=== PATIENT | female | born 1935 | race Hispanic/Latino ===

== ENCOUNTER 2017-09-02 10:34 | Observation (INO) | payer MEDICARE ==
[~2017-09-02] VITALS: Ht 162.6 cm; Wt 130.4 kg
[~2017-09-02 10:34] MED LIST: ACET500C44 PO; AEC81 PO; ALBU2.5V2 IH; AMOX1TAB16 PO; CARAL PO; CHOL200074 PO; DONE10TA43 PO; FLUT1DIS3 IH; GABA-531 PO; LEVO75 GT; PANT40TA PO; POTA20TA12 PO; PRAV20TA PO; PRED10TA3 PO; SOLI10TA PO; TIMO5DRO7 OD; XALA2.5OS OU
[2017-09-02] MEDS ORDERED: ACETAMINOPHEN 120 MG SUPPOSITORY RC ONE (10:39)
[2017-09-02] MEDS ORDERED: ACETAMINOPHEN 650 MG SUPPOSITORY RC ONE (10:39)
[2017-09-02 11:11] LABS: APPEARANCE,URINE Cloudy (CLEAR); BILIRUBIN,URINE Moderate (NEGATIVE); COLOR,URINE Dark Yellow (YELLOW); GLUCOSE, URINE (UA) Negative (NEGATIVE); KETONES,URINE Trace mg/dL (NEGATIVE); LEUKOCYTE ESTERASE ,URINE Moderate (NEGATIVE); NITRATE,URINE Positive (NEGATIVE); OCCULT BLOOD,URINE Negative (NEGATIVE); PROTEIN,URINE POS 2+ (NEGATIVE)
[2017-09-02 11:14] LABS: ABG BASE EXCESS -3.3 mmol/L (-2.0-3.0); ABG HCO3 26.1 mmol/L (21.0-28.0); ABG OXYGEN SATURATION 90.5 % (95.0-99.0); ABG PCO2 66 mmHg (32-45)
[2017-09-02 11:23] LABS: BACTERIA,URINE Moderate /HPF (None Seen); RBC,URINE 0-1 /HPF (0-1); SQUAMOUS EPITHELIAL CELL,UR Few /HPF (0-2)
[2017-09-02] MEDS ORDERED: CEFTRIAXONE SODIUM 1 GM ONE ×2 (11:28→11:37)
[2017-09-02] MEDS ORDERED: SODIUM CHLORIDE 0.9% 50 ML IV ONE (11:28)
[2017-09-02 11:29] LABS: BASOPHILS % (AUTO) 0.3 % (0.0-5.0); EOSINOPHILS % (AUTO) 0.1 % (0.0-8.0); HEMATOCRIT 39.5 % (36-48); LYMPHOCYTES % (AUTO) 7.7 % (21.0-51.0); MEAN CORPUSCULAR HGB CONC 31.3 g/dL (32.0-36.0); MEAN CORPUSCULAR VOLUME 105.4 fL (79-99); MONOCYTES % (AUTO) 7.1 % (3.0-13.0); NEUTROPHILS % (AUTO) 84.8 % (40.0-77.0); NUCLEATED RED BLOOD CELLS 0.3 % (0.0-0.19); PLATELET COUNT (AUTO) 180 K/uL (130-400); RED BLOOD CELL COUNT(AUTO) 3.75 MIL/uL (4.00-5.50); RED CELL DISTRIBUTION WIDTH 20.7 % (11.0-15.5); WHITE BLOOD COUNT (AUTO) 8.6 K/uL (4.8-10.8)
[2017-09-02 11:41] LABS: CREATININE 1.6 mg/dL (0.5-1.5); POTASSIUM 5.1 mmol/L (3.5-5.1)
[2017-09-02 11:45] LABS: ALBUMIN 2.8 g/dL (3.5-5.0); TOTAL PROTEIN, SERUM 6.7 g/dL (6.0-8.3)
[2017-09-02 11:46] LABS: INR 1.13 (0.85-1.15); PARTIAL THROMBOPLASTIN TIME 23.9 SEC (26.3-35.5); PROTHROMBIN TIME 11.8 SEC (9.6-11.6)
[2017-09-02 15:05] VITALS: BP 101/47
[2017-09-02] MEDS ORDERED: SODIUM CHLORIDE 0.9% 500ML 500 ML IV ONE (15:07)
[2017-09-02 16:06] VITALS: BP 112/54
[2017-09-02] MEDS ORDERED: CEFTRIAXONE 1GM/D5W 50ML 50 ML IV SCH (16:30)
[2017-09-02] MEDS ORDERED: ALBUTEROL SULFATE 0.083% 2.5 MG/3 ML INH IH PRN (16:30)
[2017-09-02] MEDS ORDERED: LACTULOSE 20 GM/30 ML UDCUP PO PRN (16:30)
[2017-09-02] MEDS ORDERED: MAG HYDROX/AL HYDROX/SIMETH ES 30 ML SUSP UDCUP PO PRN (16:30)
[2017-09-02] MEDS ORDERED: ONDANSETRON HCL 4 MG/2 ML VIAL IV PRN (16:30)
[2017-09-02] MEDS ORDERED: ACETAMINOPHEN 325 MG TAB PO PRN ×2 (16:30)
[2017-09-02] MEDS ORDERED: POTASSIUM CHLORIDE 10% ELIXIR 20 MEQ/15 ML UDCUP PO PRN (16:45)
[2017-09-02] MEDS ORDERED: POTASSIUM CHLORIDE 20 MEQ ERTAB PO PRN (16:45)
[2017-09-02] MEDS ORDERED: LIDOCAINE HCL-MPF 1% 2ML VIAL IVP PRN (16:45)
[2017-09-02] MEDS ORDERED: POTASSIUM CHLORIDE 20MEQ/100ML 100 ML IV PRN (16:45)
[2017-09-02] MEDS: SODIUM CHLORIDE 0.9% 1000ML 1,000 ML IV SCH (16:45)
[2017-09-02] MEDS ORDERED: CEFTRIAXONE SODIUM 1 GM IVP SCH ×2 (17:15)
[2017-09-02] MEDS: ALBUTEROL SULFATE 0.083% 2.5 MG/3 ML INH IH SCH ×2 (18:37→22:23)
[2017-09-02 19:30] VITALS: BP 88/44
[2017-09-02 23:26] VITALS: BP 97/33
[2017-09-03] MEDS: SODIUM CHLORIDE 0.9% 1000ML 1,000 ML IV SCH ×2 (00:17→20:41)
[2017-09-03] MEDS: ALBUTEROL SULFATE 0.083% 2.5 MG/3 ML INH IH SCH ×6 (01:56→21:48)
[2017-09-03 03:03] VITALS: BP 95/63
[2017-09-03 04:01] LABS: CREATININE 1.5 mg/dL (0.5-1.5); POTASSIUM 4.3 mmol/L (3.5-5.1)
[2017-09-03 04:01] LABS: ABG BASE EXCESS -2.9 mmol/L (-2.0-3.0); ABG HCO3 27.3 mmol/L (21.0-28.0); ABG PCO2 73 mmHg (32-45)
[2017-09-03 07:00] VITALS: BP 95/55
[2017-09-03] MEDS: LEVOTHYROXINE 75 MCG TABLET GT SCH (07:15)
[2017-09-03] MEDS ORDERED: PREDNISONE 20 MG TABLET PO SCH (09:00)
[2017-09-03] MEDS ORDERED: CEFTRIAXONE SODIUM 1 GM IVP SCH (09:00)
[2017-09-03] MEDS ORDERED: AcetaZOLAMIDE 250 MG TAB PO SCH (09:00)
[2017-09-03] MEDS: PANTOPRAZOLE SODIUM 40 MG TABLET.DR PO SCH ×2 (09:00→10:31)
[2017-09-03 09:04] LABS: ABG BASE EXCESS -3.2 mmol/L (-2.0-3.0); ABG HCO3 25.8 mmol/L (21.0-28.0); ABG OXYGEN SATURATION 91.6 % (95.0-99.0); ABG PCO2 63 mmHg (32-45)
[2017-09-03] MEDS: ASPIRIN 81 MG EC TAB PO SCH (10:31)
[2017-09-03] MEDS: POTASSIUM CHLORIDE 20 MEQ ERTAB PO SCH (10:32)
[2017-09-03] MEDS: ENOXAPARIN SODIUM 40 MG/0.4 ML SYRINGE SQ SCH (10:33)
[2017-09-03 11:00] VITALS: BP 109/51
[2017-09-03 16:00] VITALS: BP 122/76
[2017-09-03 19:28] VITALS: BP 103/72
[2017-09-03 23:51] VITALS: BP 111/48
[2017-09-04] MEDS: ALBUTEROL SULFATE 0.083% 2.5 MG/3 ML INH IH SCH ×3 (01:29→09:32)
[2017-09-04 04:12] VITALS: BP 116/49
[2017-09-04] MEDS: LEVOTHYROXINE 75 MCG TABLET GT SCH (06:35)
[2017-09-04 07:00] VITALS: BP 129/60
[2017-09-04] MEDS ORDERED: CEPH500C2 PO (07:06)
[2017-09-04] MEDS ORDERED: PRED10TA3 PO (07:14)
[2017-09-04] MEDS ORDERED: FAMO20TA8 PO (08:02)
[2017-09-04] MEDS ORDERED: ALBU1.252 IH (08:02)
[2017-09-04] MEDS: ASPIRIN 81 MG EC TAB PO SCH (08:16)
[2017-09-04] MEDS: POTASSIUM CHLORIDE 20 MEQ ERTAB PO SCH (08:17)
[2017-09-04] MEDS: PANTOPRAZOLE SODIUM 40 MG TABLET.DR PO SCH ×2 (08:17→08:41)
[2017-09-04] MEDS: ENOXAPARIN SODIUM 40 MG/0.4 ML SYRINGE SQ SCH (08:37)
[2017-09-04] MEDS ORDERED: PREDNISONE 20 MG TABLET PO SCH (09:00)
[2017-09-04] MEDS ORDERED: CEPHALEXIN 500 MG CAPSULE PO SCH (09:00)
[2017-09-04 11:00] VITALS: BP 136/68
[2017-09-04] MEDS ORDERED: ONDANSETRON HCL MDV 20ML 2 MG/ML VIAL IV PRN (12:38)
== END 2017-09-04 13:07 | disposition home health service (06) ==
LOC: EDH 10:34 → EDHIP 13:52 → 2AH 14:13
PROVIDERS: ADMIT Internal Medicine; ATTEND Internal Medicine
DX: G82.20 Paraplegia, unspecified (principal); F32.1 Major depressive disorder, single episode, moderate; R32 Unspecified urinary incontinence; E78.5 Hyperlipidemia, unspecified; J44.9 Chronic obstructive pulmonary disease, unspecified; E03.9 Hypothyroidism, unspecified; Z68.42 Body mass index [BMI] 45.0-49.9, adult; E66.01 Morbid (severe) obesity due to excess calories; G62.9 Polyneuropathy, unspecified; H40.9 Unspecified glaucoma; Z99.81 Dependence on supplemental oxygen; J96.12 Chronic respiratory failure with hypercapnia; D75.1 Secondary polycythemia; F03.90 Unspecified dementia, unspecified severity, without behavioral disturbance, psychotic disturbance, mood disturbance, and anxiety; F41.1 Generalized anxiety disorder; I50.32 Chronic diastolic (congestive) heart failure; I11.0 Hypertensive heart disease with heart failure; N39.0 Urinary tract infection, site not specified; J96.20 Acute and chronic respiratory failure, unspecified whether with hypoxia or hypercapnia; K65.9 Peritonitis, unspecified; J30.9 Allergic rhinitis, unspecified; Z79.82 Long term (current) use of aspirin; Z79.899 Other long term (current) drug therapy; Z82.0 Family history of epilepsy and other diseases of the nervous system; Z82.3 Family history of stroke; Z82.49 Family history of ischemic heart disease and other diseases of the circulatory system; Z82.5 Family history of asthma and other chronic lower respiratory diseases; Z83.3 Family history of diabetes mellitus; Z66 Do not resuscitate
CPT/HCPCS: 36415 ×2; 36600 ×3; 71045; 80048; 80053; 81001; 82803 ×3; 83605 ×2; 83880; 84484; 85025; 85610; 85730; 87040 ×2; 87088; 87186; 87804 ×2; 93005; 94640 ×11; 94660 ×3; 94664; 96372 ×2; 96374; 97161; 99285; A4218; A4344 ×2; G0378 ×47; G8981; G8982; G8983; J0696 ×4; J1650 ×2; J7030 ×2; J7040

== ENCOUNTER → 2019-02-26 | Outpatient (CLI) | payer MEDICARE ==
[~2019-02-26] MED LIST changes: +ALBU1.252 IH; -ALBU2.5V2 IH; -AMOX1TAB16 PO; -CARAL PO; +CEPH500C2 PO; -CHOL200074 PO; +FAMO20TA8 PO; -FLUT1DIS3 IH; -GABA-531 PO; -PANT40TA PO; -TIMO5DRO7 OD; -XALA2.5OS OU
== END | disposition home or self-care (01) ==
LOC: RAH 16:44
PROVIDERS: ATTEND Internal Medicine
DX: J98.11 Atelectasis (principal); R05 Cough
CPT/HCPCS: 71046

== ENCOUNTER 2019-06-05 12:09 | Observation (INO) | payer MEDICARE ==
[~2019-06-05] VITALS: Ht 167.6 cm; Wt 112.3 kg
[2019-06-05 12:44] LABS: BASOPHILS % (AUTO) 0.6 % (0.0-5.0); EOSINOPHILS % (AUTO) 2.9 % (0.0-8.0); HEMATOCRIT 47.4 % (36-48); LYMPHOCYTES % (AUTO) 20.1 % (21.0-51.0); MEAN CORPUSCULAR HGB CONC 31.2 g/dL (32.0-36.0); MEAN CORPUSCULAR VOLUME 96.1 fL (79-99); MONOCYTES % (AUTO) 5.3 % (3.0-13.0); NEUTROPHILS % (AUTO) 70.5 % (40.0-77.0); PLATELET COUNT (AUTO) 149 K/uL (130-400); RED BLOOD CELL COUNT(AUTO) 4.93 MIL/uL (4.00-5.50); RED CELL DISTRIBUTION WIDTH 14.1 % (11.0-15.5); WHITE BLOOD COUNT (AUTO) 7.1 K/uL (4.8-10.8)
[2019-06-05] MEDS ORDERED: ASPIRIN 325 MG TABLET ONE (12:45)
[2019-06-05 13:02] LABS: INR 0.94 (0.85-1.15); PARTIAL THROMBOPLASTIN TIME 27.6 SEC (26.3-35.5); PROTHROMBIN TIME 9.9 SEC (9.6-11.6)
[2019-06-05 13:03] LABS: CREATININE 1.3 mg/dL (0.5-1.5); POTASSIUM 4.3 mmol/L (3.5-5.1)
[2019-06-05 13:07] LABS: ALBUMIN 3.4 g/dL (3.5-5.0); BILIRUBIN,TOTAL 1.1 mg/dL (0.2-1.0); TOTAL PROTEIN, SERUM 6.8 g/dL (6.0-8.3)
[2019-06-05] MEDS ORDERED: IPRATROPIUM/ALBUTEROL SULFATE 3 ML SOLUTION IH ONE (13:14)
[2019-06-05] MEDS ORDERED: SILV50CR31 TP (14:23)
[2019-06-05] MEDS ORDERED: LINA145C PO (14:23)
[2019-06-05] MEDS ORDERED: GABA-529 PO (14:23)
[2019-06-05] MEDS ORDERED: CHOL200026 PO (14:23)
[2019-06-05] MEDS ORDERED: FLUT1DIS3 IH (14:23)
[2019-06-05] MEDS ORDERED: ALBU2.5V2 IH (14:23)
[2019-06-05] MEDS ORDERED: LEVO5TAB13 PO (14:23)
[2019-06-05] MEDS ORDERED: ALBU18HF7 IH (14:23)
[2019-06-05] MEDS ORDERED: NYST15CR TP (14:23)
[2019-06-05] MEDS ORDERED: LATA7.5D OP (14:23)
[2019-06-05] MEDS ORDERED: BIPAP NASAL (14:23)
[2019-06-05] MEDS ORDERED: CLOT15CR4 TP (14:23)
[2019-06-05] MEDS ORDERED: O2 NASAL (14:23)
[2019-06-05] MEDS ORDERED: POTA20TA12 PO (14:23)
[2019-06-05] MEDS ORDERED: TIMO.25OS OD (14:23)
[2019-06-05] MEDS ORDERED: FUROSEMIDE 10 MG/ML 4ML VIAL ONE (14:48)
[2019-06-05] MEDS ORDERED: METHYLPREDNISOLONE SOD SUCC 125MG/2ML VIAL ONE (14:48)
[2019-06-05] MEDS ORDERED: AZITHROMYCIN 250 MG TABLET PO ONE (14:49)
[2019-06-05] MEDS: IPRATROPIUM/ALBUTEROL SULFATE 3 ML SOLUTION IH SCH ×2 (18:06→21:57)
[2019-06-05] MEDS ORDERED: LACTULOSE 20 GM/30 ML UDCUP PO PRN (19:30)
[2019-06-05] MEDS ORDERED: GUAIFENESIN-DM 200/20 MG 10 ML PO PRN (19:30)
[2019-06-05] MEDS ORDERED: MAG HYDROX/AL HYDROX/SIMETH ES 30 ML SUSP UDCUP PO PRN (19:30)
[2019-06-05] MEDS ORDERED: ACETAMINOPHEN 325 MG TAB PO PRN ×2 (19:30)
[2019-06-05] MEDS ORDERED: ONDANSETRON HCL 4 MG/2 ML VIAL IV PRN (19:30)
[2019-06-05 21:00] VITALS: BP 157/89
[2019-06-05] MEDS ORDERED: [UNRECOGNIZED DRUG - OTHER] NASAL SCH (21:00)
--- NOTE | 2019-06-05 21:00 | NUR ---
Admission note: Received to floor via stretcher. AOX3. Positioned in bed comfortably, HOBE. Continuously attached to O2 at 2LPM via NC. VS checked and recorded. Assessment done. ( See CPOE flow chart for full assessment) Plan of care initiated. Oriented to room and used of call light. Policies and procedures explained. Home meds already resumed by primary physician. IV site to RAC #20 gauge - patent and intact ,SL. Kept observed and monitored for any unusualities. No apparent distress noted. Denies feeling of discomfort. Cared for and needs attended. Endorsed accordingly to AM nurse.
[2019-06-05] MEDS ORDERED: IPRATROPIUM/ALBUTEROL SULFATE 3 ML SOLUTION IH SCH (22:00)
[2019-06-05 22:01] LABS: APPEARANCE,URINE Clear (CLEAR); BILIRUBIN,URINE Negative (NEGATIVE); COLOR,URINE Yellow (YELLOW); GLUCOSE, URINE (UA) Negative (NEGATIVE); KETONES,URINE Negative (NEGATIVE); LEUKOCYTE ESTERASE ,URINE Trace (NEGATIVE); NITRATE,URINE Negative (NEGATIVE); OCCULT BLOOD,URINE Negative (NEGATIVE); PROTEIN,URINE Negative (NEGATIVE); UROBILINOGEN,URINE 0.2 mg/dL (0.2-1.0)
[2019-06-05 22:09] LABS: BACTERIA,URINE Few /HPF (None Seen); RBC,URINE None Seen /HPF (0-1); SQUAMOUS EPITHELIAL CELL,UR 0-2 /HPF (0-2)
[2019-06-05 23:38] VITALS: BP 130/75
[2019-06-06] MEDS: IPRATROPIUM/ALBUTEROL SULFATE 3 ML SOLUTION IH SCH ×4 (01:40→13:19)
[2019-06-06 04:00] VITALS: BP 114/69
[2019-06-06 05:20] LABS: HEMATOCRIT 47.4 % (36-48); MEAN CORPUSCULAR HEMOGLOBIN 29.5 pg (27.0-33.0); MEAN CORPUSCULAR HGB CONC 31.2 g/dL (32.0-36.0); MEAN CORPUSCULAR VOLUME 94.4 fL (79-99); PLATELET COUNT (AUTO) 157 K/uL (130-400); RED BLOOD CELL COUNT(AUTO) 5.02 MIL/uL (4.00-5.50); RED CELL DISTRIBUTION WIDTH 14.1 % (11.0-15.5); WHITE BLOOD COUNT (AUTO) 9.5 K/uL (4.8-10.8)
[2019-06-06] MEDS ORDERED: LEVOTHYROXINE 75 MCG TABLET GT SCH (06:30)
[2019-06-06] MEDS ORDERED: METHYLPREDNISOLONE SOD SUCC 125MG/2ML VIAL IVP SCH ×2 (07:15→21:00)
[2019-06-06 07:30] VITALS: BP 122/67
[2019-06-06] MEDS: POTASSIUM CHLORIDE 20 MEQ ERTAB PO SCH ×2 (08:17→08:26)
[2019-06-06] MEDS ORDERED: ENOXAPARIN SODIUM 40 MG/0.4 ML SYRINGE SQ SCH (09:00)
[2019-06-06] MEDS ORDERED: AZITHROMYCIN 500MG+NS 250ML 250 ML IV SCH (09:00)
[2019-06-06] MEDS ORDERED: FUROSEMIDE 10 MG/ML 4ML VIAL IVP SCH (09:00)
[2019-06-06] MEDS ORDERED: TIMOLOL MALEATE 0.25% 5 ML BOTTLE OD SCH (09:00)
[2019-06-06] MEDS ORDERED: AZITHROMYCIN 250 MG TABLET PO SCH (09:00)
[2019-06-06] MEDS ORDERED: FAMOTIDINE 20MG TAB 20 MG TAB PO SCH (09:00)
[2019-06-06] MEDS ORDERED: ASPIRIN 81 MG EC TAB PO SCH (09:00)
[2019-06-06] MEDS ORDERED: SIMVASTATIN 10 MG TABLET PO SCH (09:00)
[2019-06-06 11:00] VITALS: BP 118/62
[2019-06-06] MEDS ORDERED: PRED10TA3 PO (12:02)
[2019-06-06] MEDS ORDERED: AZIT250T PO (12:02)
[2019-06-06] MEDS ORDERED: PREDNISONE 20 MG TABLET PO SCH (12:24)
--- NOTE | 2019-06-06 14:02 | NUR ---
PER ADMISSIONS DATABASE, PT ALREADY REC'D FLU SHOT THIS SEASON. Addendum: 06/06/19 at 1405 by REEBCCA CHAPA RN RN Amended: Links added.
--- NOTE | 2019-06-06 16:00 | NUR ---
Discharge instructions provided in the room with pt and daughter at side. Emphasis on dx COPD exacerbation, S/S to monitor for, when to seek emergency care vs dial 911. Pt has follow up appt set with Dr. Silveira on 06/09/19 at 12:15 pm. Written rx for Azithromycin and Prednisone given to pt. Discussed route, frequency, and duration of treatment, as well as side effects and adverse effects. All questions addressed. PIV removed form right arm with tip intact. Dressed with sterile 2x2 and band aid after hemostasis. PT wheeled to front lobby and assisted into car by [facility] [place] Pt has home o2 in car, place on by family. Pt in stable condition at time of discharge.
== END 2019-06-06 16:15 | disposition home or self-care (01) ==
LOC: EDH 12:09 → EDHIP 14:00 → 4CH 20:27
PROVIDERS: ADMIT Internal Medicine; ATTEND Internal Medicine
DX: J44.1 Chronic obstructive pulmonary disease with (acute) exacerbation (principal); G61.0 Guillain-Barre syndrome; G82.20 Paraplegia, unspecified; E03.9 Hypothyroidism, unspecified; E78.2 Mixed hyperlipidemia; E66.01 Morbid (severe) obesity due to excess calories; H40.9 Unspecified glaucoma; F32.1 Major depressive disorder, single episode, moderate; F41.9 Anxiety disorder, unspecified; I50.9 Heart failure, unspecified; G47.33 Obstructive sleep apnea (adult) (pediatric); F03.91 Unspecified dementia, unspecified severity, with behavioral disturbance; D75.1 Secondary polycythemia; J20.9 Acute bronchitis, unspecified; R53.1 Weakness; G47.36 Sleep related hypoventilation in conditions classified elsewhere; N18.3 Chronic kidney disease, stage 3 (moderate); J96.92 Respiratory failure, unspecified with hypercapnia; J96.91 Respiratory failure, unspecified with hypoxia; Z79.82 Long term (current) use of aspirin; Z68.41 Body mass index [BMI] 40.0-44.9, adult; Z90.49 Acquired absence of other specified parts of digestive tract
CPT/HCPCS: 36415 ×2; 71045; 76770; 80053; 81001; 82550; 83880; 84484 ×2; 85025; 85027; 85610; 85730; 87804 ×2; 93005; 94640 ×7; 94664; 96372; 96374; 99284; A4510; A4600; G0378 ×20; J1650; J1940; J2930 ×2

== ENCOUNTER 2024-05-07 17:59 | Inpatient (IN) | payer MEDICARE ==
[~2024-05-07] VITALS: Ht 160 cm; Wt 117.2 kg
[~2024-05-07 17:59] MED LIST changes: -ACET500C44 PO; -ALBU1.252 IH; +ALBU18HF7 IH; +ALBU2.5V2 IH; +AZIT250T PO; +BIPAP NASAL; -CEPH500C2 PO; +CHOL200026 PO; +CLOT15CR4 TP; -DONE10TA43 PO; -FAMO20TA8 PO; +FLUT1DIS3 IH; +GABA-529 PO; +LATA7.5D OP; +LEVO5TAB13 PO; +LINA145C PO; +NYST15CR39 TP; +O2 NASAL; +POTA-193 PO; -POTA20TA12 PO; +SILV50CR31 TP; -SOLI10TA PO; +TIMO.25OS OD; +rocuRONium bROMide 10MG/1ML 5ML VL IV ONE
[2024-05-07 18:33] LABS: BASOPHILS # (AUTO) 0.05 K/uL (0.00-0.20); BASOPHILS % (AUTO) 0.7 % (0.0-5.0); EOSINOPHILS # (AUTO) 0.02 K/uL (0.00-0.70); EOSINOPHILS % (AUTO) 0.3 % (0.0-8.0); HEMATOCRIT 43.3 % (36-48); IMMATURE GRANULOCYTE ABSOLUTE 0.78 K/uL (0-1); LYMPHOCYTES % (AUTO) 12.9 % (21.0-51.0); MEAN CORPUSCULAR HEMOGLOBIN 27.9 pg (27.0-33.0); MEAN CORPUSCULAR HGB CONC 29.3 g/dL (32.0-36.0); MEAN CORPUSCULAR VOLUME 95.2 fL (79-99); MONOCYTES # (AUTO) 0.5 K/uL (0.1-1.0); MONOCYTES % (AUTO) 6.6 % (3.0-13.0); NEUTROPHILS # (AUTO) 5.3 K/uL (1.8-7.7); NEUTROPHILS % (AUTO) 69.2 % (40.0-77.0); NUCLEATED RED BLOOD CELLS 0.8 % (0.0-0.19); PLATELET COUNT (AUTO) 78 K/uL (130-400); RED BLOOD CELL COUNT(AUTO) 4.55 MIL/uL (4.00-5.50); RED CELL DISTRIBUTION WIDTH 16.4 % (11.0-15.5); WHITE BLOOD COUNT (AUTO) 7.6 K/uL (4.8-10.8)
[2024-05-07 18:37] LABS: ABG BASE EXCESS 0.1 mmol/L (-2.0-3.0); ABG HCO3 30.8 mmol/L (21.0-28.0); ABG OXYGEN SATURATION 95.1 % (94.0-98.0); ABG PCO2 85 mmHg (32-45); ABG PH 7.177 (7.350-7.450); CARBON MONOXIDE 1.8 % (0.5-1.5); DEVICE COMMENT RR RN; HHb 4.8; PO2, ARTERIAL BG 87.2 mmHg (83.0-108.0); VENT MODE, BG NRB (ROOM AIR)
[2024-05-07 18:50] VITALS: RESP 24; O2SAT 100
[2024-05-07 18:52] LABS: CREATININE 2.5 mg/dL (0.5-1.0)
[2024-05-07 18:56] LABS: B-TYPE NATRIURETIC PEPTIDE 776 pg/mL (0-100)
[2024-05-07] MEDS: IpraTROPium/alBUTERol SULFATE 3 ML SOLUTION IH ONE (19:02)
[2024-05-07 19:03] VITALS: PULSE 90; RESP 24
--- NOTE | 2024-05-07 19:17 | HMCIMG ---
CHEST 1VW HISTORY: Dyspnea and shortness of breath COMPARISON: 06/05/2019 FINDINGS: A frontal projection of the chest was obtained. Mild bilateral pulmonary infiltrates are seen may be related to mild pulmonary vascular congestion with possible superimposed pneumonitis. The heart is borderline enlarged. Poor inspiratory effort is seen. No evidence of aortic calcification is seen. IMPRESSION: 1. Mild bilateral pulmonary infiltrates are seen may be related to mild pulmonary vascular congestion with possible superimposed pneumonitis.
[2024-05-07] MEDS: ZOSYN 3.375GM +NS 50ML IVPB ONE (19:18)
[2024-05-07] MEDS: Solu-medROL 125MG VIAL IVP ONE (19:18)
[2024-05-07 19:37] LABS: SARS-CoV-2, RNA, NAAT NEGATIVE SARS CoV-2 (NEGATIVE)
[2024-05-07 19:39] LABS: INFLUENZA TYPE A Negative For Type A (NEGATIVE); INFLUENZA TYPE B Negative For Type B (NEGATIVE)
[2024-05-07] MEDS: CALCIUM GLUC 1GM 1 GM in 0.9%NACL 100ML 100 ML IV ONE (19:58)
[2024-05-07] MEDS: furoSEMIDE 20MG VIAL IV ONE (19:58)
[2024-05-07] MEDS: INSULIN humuLIN R 100 UNIT/ML 3ML IV ONE (19:59)
[2024-05-07] MEDS: DEXTROSE 50%-WATER 25 GM/50 ML VIAL IV ONE (19:59)
[2024-05-07] MEDS: CALCIUM GLUC 1GM/10ML VIAL ONE (20:00)
[2024-05-07] MEDS: DEXTROSE 50%-WATER 50 ML DISP.SYRIN IV ONE (20:00)
[2024-05-07] MEDS: LORazepam 2 MG/ML 1 ML VIAL IVP ONE (20:18)
[2024-05-07 20:24] LABS: APPEARANCE,URINE CLEAR (CLEAR); BILIRUBIN,URINE NEGATIVE (NEGATIVE); COLOR,URINE YELLOW (YELLOW); GLUCOSE, URINE (UA) NEGATIVE (NEGATIVE); KETONES,URINE NEGATIVE (NEGATIVE); LEUKOCYTE ESTERASE ,URINE NEGATIVE Leu/uL (NEGATIVE); NITRATE,URINE NEGATIVE (NEGATIVE); OCCULT BLOOD,URINE SMALL (NEGATIVE); PROTEIN,URINE 30 mg/dL (NEGATIVE); UROBILINOGEN,URINE 0.2 mg/dL (0.2-1.0)
[2024-05-07 20:25] LABS: ADD UA MICROSCOPIC YES
[2024-05-07 20:27] LABS: BACTERIA,URINE RARE /HPF (None Seen); MUCUS,URINE RARE LPF (None Seen); OTHER CASTS, URINE 3 /LPF (None Seen); SQUAMOUS EPITHELIAL CELL,UR RARE /HPF (0-2)
[2024-05-07] MEDS: ALBUTEROL 0.083% 2.5 MG/3 ML INH IH SCH (20:32)
[2024-05-07 20:40] VITALS: PULSE 90; RESP 24
--- NOTE | 2024-05-07 21:05 | ERN ---
General Chief Complaint: Shortness of Breath Stated Complaint: SOB Time Seen by MD: 18:35 Time Seen by Midlevel: 18:35 Source: patient, EMS History of Present Illness Initial Comments Patient is a morbidly obese 88-year-old female with a past medical of hypertension, hyperlipidemia, and COPD who presents via EMS for evaluation of shortness of breath. Patient is normally on home oxygen at 3 L however for the last seven days patient has been progressively getting more short of breath. According to EMS patient was satting 85% on nasal cannula. Patient was placed on 10 L via non-rebreather in route with improvement of O2 saturation to 92%. According to family patient has been more lethargic than usual. Allergies: Coded Allergies: No Known Allergies (Verified Allergy, Unknown, 05/29/14) Home Meds Active Scripts Prednisone (Prednisone) 10 Mg Tablet, 10 MG PO AD, #21 TAB 0 Refills 4 tabs daily x 3 days 2 tabs daiy x 3 days 1 tab daily x 3 days then stop Prov:SALLIE MOTA MD 06/06/19 Azithromycin (Zithromax) 250 Mg Tablet, 500 MG PO Q24H for 5 Days, #5 TAB 0 Refills Prov:SALLIE MOTA MD 06/06/19 Silver Sulfadiazine (Silver Sulfadiazine) 50 Gm Cream..g., 1 APPL TP QIDP PRN for SKIN BREAKDOWN for 90 Days, #60 GM Prov:SALLIE MOTA MD 06/05/19 Clotrimazole/Betamethasone Dip (Lotrisone Cream) 15 Gm Cream..g., 1 APPL TP BID PRN for RASH for 90 Days, #90 GM Prov:SALLIE MOTA MD 06/05/19 Nystatin (Nystatin) 15 Gm Cream.gm., 1 APPL TP TIDP PRN for RASH for 90 Days, #90 APPL Prov:SALLIE MOTA MD 06/05/19 Cholecalciferol (Vitamin D3) (Vitamin D3) 2,000 Unit Tablet, 2000 UNIT PO DAILY for 90 Days, #90 TAB Prov:SALLIE MOTA MD 06/05/19 Albuterol Sulfate (Ventolin Hfa) 18 Gm Hfa.aer.ad, 2 PUFF IH QIDP PRN for SHORTNESS OF BREATH for 90 Days, #90 INHALER Prov:SALLIE MOTA MD 06/05/19 Levocetirizine Dihydrochloride (Levocetirizine Dihydrochloride) 5 Mg Tablet, 2.5 MG PO HS for 90 Days, #90 TAB Prov:SALLIE MOTA MD 06/05/19 Fluticasone/Salmeterol (Advair 250-50 Diskus) 1 Each Blst.w.dev, 1 EACH IH BID for 90 Days, #9 DISK Prov:SALLIE MOTA MD 06/05/19 Timolol Maleate (Timoptic 0.25% Ophth Soln) 20 Drop/Ml Opsol, 1 DROP OD DAILY for 90 Days, #90 DROP Prov:SALLIE MOTA MD 06/05/19 Gabapentin (Gabapentin) 100 Mg Capsule, 200 MG PO HS for 90 Days, #180 CAP Prov:SALLIE MOTA MD 06/05/19 Linaclotide (Linzess) 145 Mcg Capsule, 145 MCG PO DAILYLUNCH PRN for CONSTIPATION for 90 Days, #90 CAP Prov:SALLIE MOTA MD 06/05/19 [O2] No Conflict Check, 2.5 L NASAL, #90 0 Refills Prov:SALLIE MOTA MD 06/05/19 [Bipap] 16,/12 No Conflict Check, 16 CM NASAL HS, #1 0 Refills Prov:SALLIE MOTA MD 06/05/19 Latanoprost/Pf (Latanoprost 0.005% Eye Drop) 7.5 Ml Drops, 1 DROP OP DAILY for 90 Days, #90 DROP Prov:SALLIE MOTA MD 06/05/19 Albuterol Sulfate (Albuterol Sulfate) 2.5 Mg/3 Ml Vial.neb, 2.5 MG IH Q6HPRN PRN for SHORTNESS OF BREATH/WHEEZING for 90 Days, #360 INH Prov:SLALIE MOTA MD 06/05/19 Potassium Chloride (Klor-Con M20) 20 Meq Tab.er.prt, 20 MEQ PO AM for 90 Days, #90 TAB Prov:SALLIE MOTA MD 06/05/19 Reported Medications Pravastatin Sodium (Pravachol) 20 Mg Tablet, 20 MG PO AM, TAB 05/29/14 Aspirin (ASPIRIN 81 MG ECTAB) 81 Mg Ectab, 81 MG PO DAILY, TAB.EC 05/29/14 Levothyroxine Sodium (Levothroid/Synthroid) 75 Mcg Tab, 75 MCG GT ACBKFST, TAB 05/29/14 Past Medical History Past Medical History: Asthma, COPD Past Surgical History: Other ROS Dictation CONSTITUTIONAL: Negative except for HPI HEAD/FACE: Negative except for HPI EENT: Negative except for HPI RESPIRATORY: Negative except for HPI GASTROINTESTINAL/ABDOMINAL: Negative except for HPI GENITOURINARY: Negative except for HPI MUSCULOSKELETAL: Negative except for HPI INTEGUMENTARY: Negative except for HPI NEUROLOGICAL/PSYCH: Negative except for HPI HEMATOLOGIC/LYMPHATIC: Negative except for HPI All Systems Negative, Except as noted above. 13 point review of systems assessed and all negative except for above. Physical Exam Physical Exam Dictation Vital Signs reviewed General Appearance: Alert, oriented x 3, mild respiratory distress, morbidly obese Head and Face: non-traumatic. Eyes: PERRL, pink conjunctivas, eyelid no trauma, anterior chamber with arcus senilis. Ears: Pinnas intact and no signs of trauma or erythema ear canals clear and no discharge TM no erythema Nose: No discharge, no bleeding. Oropharynx: Mouth normal, tongue pink, pharynx clear,no erythema, tonsils no exudates, no abscesses noted, mucous membrane moist Neck: Supple, non-tender, no thyromegaly, no masses, no JVD, no bruits Breast:Deferred Chest:No tenderness, no crepitus, no paradoxical movement, no retractions Lungs: Wheezing to bilateral lung hightower, tachypneic Heart: Regular rate, regular rhythm, no murmur, no gallops Vascular: no peripheral edema, Abdomen: Soft, positive bowel sounds, nondistended, no guarding, nontender, no rebound, no masses no hepatomegaly, no splenomegaly, no Martinez's sign, no hernias. Rectal: Deferred Genital: Deferred Neurological: Normal speech, motor function intact, sensory function intact Musculoskeletal: Neck nontender, full range of motion, back nontender, full range of motion, Extremities: nontender, full range of motion Skin: Color pink, dry, no turgor, no rash, no lacerations, no abrasions, no contusions. Lymphatic: Deferred Results Laboratory and Microbiology Lab and Micro Result Laboratory Tests Test 05/07/24 18:27 05/07/24 18:35 05/07/24 19:00 05/07/24 20:16 White Blood Count 7.6 K/uL (4.8-10.8) Red Blood Count 4.55 MIL/uL (4.00-5.50) Hemoglobin 12.7 g/dL (12.0-16.0) Hematocrit 43.3 % (36-48) Mean Corpuscular Volume 95.2 fL (79-99) Mean Corpuscular Hemoglobin 27.9 pg (27.0-33.0) Mean Corpuscular Hemoglobin Concent 29.3 g/dL (32.0-36.0) L Red Cell Distribution Width 16.4 % (11.0-15.5) H Platelet Count 78 K/uL (130-400) L Mean Platelet Volume 11.1 fL (7.5-10.5) H Immature Granulocyte % (Auto) 10.3 % (0-1) H Neutrophils (%) (Auto) 69.2 % (40.0-77.0) Lymphocytes (%) (Auto) 12.9 % (21.0-51.0) L Monocytes (%) (Auto) 6.6 % (3.0-13.0) Eosinophils (%) (Auto) 0.3 % (0.0-8.0) Basophils (%) (Auto) 0.7 % (0.0-5.0) Neutrophils # (Auto) 5.3 K/uL (1.8-7.7) Lymphocytes # (Auto) 1.0 K/uL (1.0-4.8) Monocytes # (Auto) 0.5 K/uL (0.1-1.0) Eosinophils # (Auto) 0.02 K/uL (0.00-0.70) Basophils # (Auto) 0.05 K/uL (0.00-0.20) Absolute Immature Granulocyte (auto 0.78 K/uL (0-1) Nucleated Red Blood Cells 0.8 % (0.0-0.19) H Red Blood Cell Morphology ANISO 1+ Sodium Level 138 mmol/L (136-145) Potassium Level 6.0 mmol/L (3.5-5.1) *H Chloride Level 102 mmol/L (101-111) Carbon Dioxide Level 37 mmol/L (21-32) H Blood Urea Nitrogen 40 mg/dL (7-18) H Creatinine 2.5 mg/dL (0.5-1.0) H Glomerular Filtration Rate Calc 18 mL/min (>90) Random Glucose 150 mg/dL (70-105) H Lactic Acid Level 1.9 mmol/L (0.8-2.5) Total Calcium 8.8 mg/dL (8.5-10.1) Troponin I High Sensitivity 23 ng/L (4-50) B-Type Natriuretic Peptide 776 pg/mL (0-100) H Procalcitonin 0.60 ng/mL (0.05-0.5) H Blood Gas Specimen Type Arterial Arterial Blood pH 7.177 (7.350-7.450) Arterial Blood Partial Pressure CO2 85 mmHg (32-45) *H Arterial Blood Partial Pressure O2 87.2 mmHg (83.0-108.0) Arterial Blood HCO3 30.8 mmol/L (21.0-28.0) H Arterial Blood Oxygen Saturation 95.1 % (94.0-98.0) Arterial Blood Base Excess 0.1 mmol/L (-2.0-3.0) Hemoglobin (Blood Gas) 13.3 g/dL (12.0-16.0) Sodium (Blood Gas) 137 MMOL/L (136-145) Bedside Potassium (Blood Gas) 5.5 MMOL/L (3.4-4.5) H Bedside Chloride (Blood Gas) 100 MMOL/L (98-107) Bedside Glucose (Blood Gas) 153 MG/DL (65-95) H Bedside Ionized Calcium (Blood Gas) 1.16 MMOL/L (1.15-1.33) Bedside Lactic Acid (Blood Gas) 0.86 MMOL/L (0.36-0.75) H Blood Gas Temperature 37.0 CELSIUS (35.5-37.0) Blood Gas Flow-by 12.00 L/min (0.00-15.00) Blood Gas Vent Mode NRB (ROOM AIR) FiO2 100.0 % Blood Gas Specimen Comment RR RN Influenza Type A Antigen Negative For Type A Influenza Type B Antigen Negative For Type B SARS-CoV-2, RNA, NAAT NEGATIVE SARS CoV-2 Urine Color YELLOW (YELLOW) Urine Appearance CLEAR (CLEAR) Urine pH 5.0 (5.0-8.0) Urine Specific [place] 1.015 (1.001-1.031) Urine Protein 30 mg/dL (NEGATIVE) H Urine Glucose (UA) NEGATIVE mg/dL (NEGATIVE) Urine Ketones NEGATIVE mg/dL (NEGATIVE) Urine Occult Blood SMALL (NEGATIVE) H Urine Nitrate NEGATIVE (NEGATIVE) Urine Bilirubin NEGATIVE mg/dL (NEGATIVE) Urine Urobilinogen 0.2 mg/dL (0.2-1.0) Urine Leukocyte Esterase NEGATIVE Alea/uL Urine RBC 2-5 /HPF (0-1) H Urine WBC 2-5 /HPF (0-1) H Urine Squamous Epithelial Cells RARE /HPF (0-2) Urine Bacteria RARE /HPF (None Seen) Urine Other Casts 3 /LPF (None Seen) Labs Reviewed?: Yes MDM MDM: Differential diagnosis: Pneumonia, pulmonary edema, hypercapnia, pneumothorax Rationale: Tests considered and ordered secondary to shared decision making include: Previous outside records reviewed: Old ER visits. Risk of complication and/or morbidity or mortality of patient management: None Medications-Per medication reconciliation Need for hospitalization: Patient does meet criteria for hospitalization. Need for emergency major/minor surgery: No There are no social concerns with this patient. Prescription drug management Prescriptions will include symptomatic care Patient's prior external medical records from other ER visits were reviewed by me as indicated. Prior testing and results from previous visits were reviewed. Prior tests were taken into account with medical decision making and resource utilization, independent historian/historians were used to obtain complete medical history. I independently interpreted the test that were performed, results were reviewed by me and considered findings on radiology if ordered. Medical management and examination interpretation discussions were had by me with other qualified healthcare professionals as indicated for the patient's care. ED Course Orders Procedure Category Date Status Time O2 Nc Keep Sats CPOE 05/07/24 Transmitted Greater 92% 18:08 Notify Md: Spo2 < 88% CPOE 05/07/24 Transmitted 18:08 Cbc With Differential LAB 05/07/24 Complete 18:08 B-Type Natriuretic LAB 05/07/24 Complete Peptide 18:08 Chest 1vw RAD 05/07/24 Resulted 18:08 12 Lead Ekg Tracing- EKG 05/07/24 Logged Technical 18:08 Basic Metabolic Panel LAB 05/07/24 Complete 18:08 Arterial Blood Gas RT 05/07/24 Transmitted 18:09 Covid Rna Naat LAB 05/07/24 Complete 18:35 Influenza Type A & B, LAB 05/07/24 Complete Rapid 18:35 Troponin I High LAB 05/07/24 Complete Sensitivity 18:35 Arterial Blood Gas LAB 05/07/24 Complete Arterial + 18:35 Lactic Acid LAB 05/07/24 Complete 18:44 Procalcitonin LAB 05/07/24 Complete 18:44 Urinalysis Profile LAB 05/07/24 Complete 18:44 Methylprednisolone PHA 05/07/24 Complete Succ 125mg (Solu-Medr 19:00 Ipratropium/Albuterol PHA 05/07/24 Complete Neb (Duoneb) 19:00 Zosyn 3.375gm+Ns 50ml PHA 05/07/24 Complete (Zosyn 3.375gm+Ns 19:00 Calcium Gluc 1gm PHA 05/07/24 Complete (Calcium Gluc 1gm 19:30 Dextrose 50%-Water PHA 05/07/24 Complete (Dextrose 50%-Water) 19:30 Insulin Regular, PHA 05/07/24 Complete Human 3ml (Humulin R 19:30 Albuterol 0.083% PHA 05/07/24 In Process 2.5mg/3ml (Proventil 19:30 Furosemide 20mg Vial PHA 05/07/24 Complete (Lasix 20mg Vial) 20:00 Calcium Gluc 1gm PHA 05/07/24 Complete (Calcium Gluc 1gm 19:45 Dextrose 50%-Water PHA 05/07/24 Complete (D50w) 19:46 Lorazepam 2 Mg PHA 05/07/24 Complete (Ativan) 20:30 Nurse Driven Marley JARRED 05/07/24 In Process Removal Pro 20:25 Vital Signs(Adult CPOE 05/07/24 Transmitted Hospitalist) 22:36 Oxygen By Nc/Pulse Ox CPOE 05/07/24 Transmitted 22:36 Daily Weights CPOE 05/07/24 Transmitted 22:36 I&O Q Shift CPOE 05/07/24 Transmitted 22:36 Fever: Blood Cx X 2 CPOE 05/07/24 Transmitted 22:36 Ipratropium/Albuterol PHA 05/08/24 In Process Neb (Duoneb) 02:00 Pulse Ox(Continuous) RT 05/07/24 Transmitted 22:36 Nurse To Enter Home CPOE 05/07/24 Transmitted Medication 22:36 Admit Orders ADM 05/07/24 Transmitted 22:36 Condition: CPOE 05/07/24 Transmitted 22:36 Telemetry Monitoring CPOE 05/07/24 Transmitted 22:36 Activity: Bed Rest CPOE 05/07/24 Transmitted 22:36 Nothing By Mouth DIET 05/08/24 Transmitted Breakfast Apply Scds CPOE 05/07/24 Transmitted 22:36 Zosyn 3.375gm+Ns 50ml PHA 05/08/24 In Process (Zosyn 3.375gm+Ns 05:00 Critcal Care Consult CONPHYSVC 05/07/24 Transmitted 22:36 Nephrology Consult CONPHYSVC 05/07/24 Transmitted 22:36 Cbc With Differential LAB 05/08/24 Verified 04:00 Comprehensive LAB 05/08/24 Verified Metabolic Panel 04:00 Magnesium LAB 05/08/24 Verified 04:00 B-Type Natriuretic LAB 05/08/24 Verified Peptide 04:00 Hemoglobin A1c LAB 05/08/24 Verified 04:00 Daily Weights CPOE 05/07/24 Transmitted 22:59 Strict I&O CPOE 05/07/24 Transmitted 22:59 Us Renal Sonogram US 05/07/24 Logged 22:59 Echo 2-D Complete ECHO 05/07/24 Logged 22:59 Case Management CM 05/07/24 Transmitted Evaluation 22:59 Troponin I High LAB 05/08/24 Verified Sensitivity 04:00 Current Medications Medications (Trade) Dose Ordered Sig/Jessenia Route PRN Reason Start Time Stop Time Status Last Admin Dose Admin Albuterol (DUOneb) 1 UDVIAL ONCE ONCE IH 05/07/24 19:00 05/07/24 19:01 DC 05/07/24 19:02 Albuterol (DUOneb) 1 udvial [id number] 05/08/24 02:00 06/07/24 01:59 Albuterol Sulfate (Proventil 0.083% 2.5mg/3ml) 10 mg ONCE IH 05/07/24 19:30 06/06/24 19:29 05/07/24 20:32 Calcium Gluconate (Calcium Gluc 1gm Vial) 1 gm STK-MED ONCE .ROUTE 05/07/24 19:45 05/07/24 19:45 DC Calcium Gluconate 1 gm/Sodium Chloride 110 ml @ 110 mls/hr ONCE ONCE IV 12/4/24 19:30 05/07/24 20:29 DC 05/07/24 19:58 Dextrose (D50w) 50 ml STK-MED ONCE IV 05/07/24 19:46 05/07/24 19:46 DC Dextrose (Dextrose 50%-Water) 25 gm ONCE ONCE IV 05/07/24 19:30 05/07/24 19:31 DC 05/07/24 19:59 Furosemide (LASix 20MG VIAL) 20 mg ONCE ONCE IV 05/07/24 20:00 05/07/24 20:06 DC 05/07/24 19:58 Insulin Human Regular (humuLIN R 100 UNIT/ML 3ML) 5 unit ONCE ONCE IV 05/07/24 19:30 05/07/24 19:31 DC 05/07/24 19:59 Lorazepam (AtiVAN) 1 mg ONCE ONCE IVP 05/07/24 20:30 05/07/24 20:31 DC 05/07/24 20:18 Methylprednisolone Sodium Succinate (Solu-medROL 125MG) 120 mg ONCE ONCE IVP 05/07/24 19:00 05/07/24 19:01 DC 05/07/24 19:18 Piperacillin Sod/ Tazobactam Sod 50 ml @ 12.5 mls/hr Q12H IV 05/08/24 05:00 05/18/24 04:59 Piperacillin Sod/ Tazobactam Sod (Zosyn 3.375gm+NS 50ml) 3.375 gm ONCE ONCE IVPB 05/07/24 19:00 05/07/24 19:01 DC 05/07/24 19:18 Vital Signs Date Time Temp Pulse Resp B/P (MAP) Pulse Ox O2 Delivery O2 Flow Rate FiO2 05/07/24 22:19 99 18 132/65 95 Bi-PAP+ 40 05/07/24 20:40 90 24 05/07/24 20:28 98.8 93 18 124/54 94 Bi-PAP+ 40 05/07/24 19:03 90 24 05/07/24 18:50 24 40 05/07/24 18:48 99.0 91 24 124/51 99 Non-Rebreather+ 10 99 05/07/24 18:02 98.4 92 20 112/58 92 Nonrebreathing Mask 10.0 [place] [id number] [address] IMAGING REPORT Signed PATIENT: TEMITOPE ROBBINS MR#: [id number] : 1935 SEX: F AGE: 88 LOCATION: [facility] ORDER 08 STATUS: REG ER REPORT#: [id number] SERVICE 07 REASON: Dyspnea/SOB ORDERING PHYSICIAN: EMILY COREAS MD PROCEDURE: CXR1VW - CHEST 1VW CHEST 1VW HISTORY: Dyspnea and shortness of breath COMPARISON: 06/05/2019 FINDINGS: A frontal projection of the chest was obtained. Mild bilateral pulmonary infiltrates are seen may be related to mild pulmonary vascular congestion with possible superimposed pneumonitis. The heart is borderline enlarged. Poor inspiratory effort is seen. No evidence of aortic calcification is seen. IMPRESSION: 1. Mild bilateral pulmonary infiltrates are seen may be related to mild pulmonary vascular congestion with possible superimposed pneumonitis. DICTATED BY: RAKEL WELSH MD DATE: 05/07/241913 ELECTRONICALLY SIGNED BY: RAKEL WELSH MD DATE: 05/07/241916 DX & DISP Disposition: Inpatient Decision to Admit Date: May 07, 2024 Departure Impression: Primary Impression: Hypercapnia Additional Impressions: COPD exacerbation, Acute respiratory failure, Pneumonia, Hyperkalemia, Acute kidney injury Condition: Stable Referrals: SELF,REFERRAL (PCP) I have reviewed the case, and I agree with, Diagnosis and Plan I performed the substantive portion of the visit. I have reviewed and personally made and approve the management plan that is documented in the note by myself or the [facility]. I acknowledge for responsibility for the patient's management plan. CECY SORIANO May 07, 2024 21:05
--- NOTE | 2024-05-07 22:36 | HP ---
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 Patient isn't able to provide information and details reading medical history and no family member present during my evaluation.Details and information for medical history was taken and gathered from [facility] ,midlevel,and primary nurse. Patient is obtunded on BiPAP recently received with Ativan. Reportedly patient has been short of breath for the past 1 week and progressively got worse today.Patient was using 4L/NC at home and patient has been in the 70's saturation and patient was very restless as per primary nurse report.Upon arrival to ER patient was placed on Bipap and was given Lorazepam 1 mg IV. Seen and examined patient in the ED on Bipap, respirations even and n onlabored,appears calm and comfortable.Patient does not open eyes responsive to pain stimuli ,recently received Ativan.Recent V/S T98.8,HR90,RR24,BP 124/54 Sat 94% Bipap 40% FIO2. Labs WBC 7.6, hemoglobin 12.7, hematocrit 43.3, platelet count 78. Sodium 138, potassium 6.0, carbon dioxide 37, BUN 40, creatinine 2.5, GFR 18 glucose 150, lactic acid 1.9, BNP 7 seven six, procalcitonin 0.60 troponin 23. Influenza a and B negative SARs COVID negative chest x-ray result revealed mild bilateral pulmonary infiltrates are seen may be related to mild pulmonary vascular congestion with possible superimposed pneumonitis. While in the ER patient received Solu-Medrol 120 mg IV, DuoNeb treatment Zosyn IV, calcium gluconate, D50 25 g IV, insulin 5 units IV and albuterol sulfate 10 mg inhalation, lorazepam 1 mg IV and Lasix 20 mg IV. We will admit patient for further medical management. Addendum: As per ER family signed AMA and left with patient REVIEW OF SYSTEMS CONSTITUTIONAL: Denies fevers, chills, or night sweats. No unintentional weight loss reported. NEUROLOGICAL: Denies headache, amaurosis fugax, motor weakness, sensory deficit, vertigo/spinning sensation, gait abnormalities, or tremors. ENT: No hearing loss, otalgia, otorrhea, rhinitis, rhinorrhea, hoarseness, or sore throat. CARDIOVASCULAR: Denies any exertional angina, dyspnea on exertion, orthopnea, paroxysmal nocturnal dyspnea, palpitations, life-threatening arrhythmias, claudication. PULMONARY: Denies any shortness of breath, cough, phlegm/sputum, hemoptysis, pleuritic chest pain. SLEEP: Denies morning headaches, daytime somnolence or napping. Denies difficulty falling asleep, staying asleep, waking from sleep. Denies knowledge of snoring. GASTROINTESTINAL: Denies any type of dysphagia to either liquids or solids. Denies nausea, vomiting, pyrosis, early satiety, abdominal pain, diarrhea, constipation, or changes in stool consistency or caliber. Denies coffee-ground emesis, hematemesis, hematochezia, or melanotic stools. GENITOURINARY: Denies frequency, urgency, nocturia, hematuria or incontinence (Storage/Irritative symptoms.) Low urinary stream, straining to void, urinary intermittency or hesitancy, splitting of the voiding stream, terminal dribbling. ENDOCRINOLOGIC: Denies polyuria, polydipsia, polyphagia or heat/cold intoleran cierra. HEMATOLOGIC: Denies thrombophilia/previous clots, or coagulopathy/bleeding disorders. ONCOLOGIC: Denies personal history of malignancy. DERMATOLOGIC: Denies rashes or pruritus. PSYCHIATRIC: Denies any suicidal or homicidal ideation. Denies hallucinations. 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 ] FAMILY HISTORY: [ Dementia, asthma, cancer, heart failure, Alzheimer's disease and stroke ] Coded Allergies: No Known Allergies (Verified Allergy, Unknown, 05/29/14) PHYSICAL EXAM GENERAL APPEARANCE: The patient is awake, alert, and oriented, in no acute cardiopulmonary distress. NEUROLOGICAL: Cranial nerves II-XII grossly intact. Motor is 5/5 in bilateral upper and lower extremities proximal to distal. No sensory deficits. HEENT: Face is symmetric. Pupils are equal and reactive. Extraocular movements are intact. NECK: Supple. No JVD. No thyromegaly. No submental, submandibular, pre- /postauricular, occipital or supraclavicular lymphadenopathy. CHEST: Normal chest expansion. No Telemetry. LUNGS: Absence of any rales, rhonchi or any wheezing. CARDIOVASCULAR: Regular. S1 and S2 normal. No appreciable rubs, murmurs or gallops. ABDOMEN: Soft, nontender, and nondistended. There is no rebound, voluntary guarding, or rigidity. : Deferred. No Marley. EXTREMITIES: Non-edematous and not cyanotic. No clubbing. Good capillary refill. SKIN: No skin breakdown. Vital Sign (Last 24 Hours) 05/07/24 05/07/24 05/07/24 18:48 20:28 20:40 Temp 98.8 Pulse 90 Resp 24 B/P (MAP) 124/54 Pulse Ox 94 O2 Delivery Bi-PAP+ O2 Flow Rate 10 FiO2 40 LABS: Laboratory: Test 05/07/24 20:16 05/07/24 19:00 05/07/24 18:35 05/07/24 18:27 Range/Units Urine Color YELLOW YELLOW Urine Appearance CLEAR CLEAR Urine pH 5.0 5.0-8.0 Urine Specific [place] 1.015 1.001-1.031 Urine Protein 30 H NEGATIVE mg/dL Urine Glucose (UA) NEGATIVE NEGATIVE mg/dL Urine Ketones NEGATIVE NEGATIVE mg/dL Urine Occult Blood SMALL H NEGATIVE Urine Nitrate NEGATIVE NEGATIVE Urine Bilirubin NEGATIVE NEGATIVE mg/dL Urine Urobilinogen 0.2 0.2-1.0 mg/dL Urine Leukocyte Esterase NEGATIVE NEGATIVE Alea/uL Urine RBC 2-5 H 0-1 /HPF Urine WBC 2-5 H 0-1 /HPF Urine Squamous Epithelial Cells RARE 0-2 /HPF Urine Bacteria RARE None Seen /HPF Urine Other Casts 3 None Seen /LPF Influenza Type A Antigen Negative For Type A NEGATIVE Influenza Type B Antigen Negative For Type B NEGATIVE SARS-CoV-2, RNA, NAAT NEGATIVE SARS CoV-2 NEGATIVE Blood Gas Specimen Type Arterial Arterial Blood pH 7.177 *L 7.350-7.450 Arterial Blood Partial Pressure CO2 85 *H 32-45 mmHg Arterial Blood Partial Pressure O2 87.2 83.0-108.0 mmHg Arterial Blood HCO3 30.8 H 21.0-28.0 mmol/L Arterial Blood Oxygen Saturation 95.1 94.0-98.0 % Arterial Blood Base Excess 0.1 -2.0-3.0 mmol/L Hemoglobin (Blood Gas) 13.3 12.0-16.0 g/dL Sodium (Blood Gas) 137 136-145 MMOL/L Bedside Potassium (Blood Gas) 5.5 H 3.4-4.5 MMOL/L Bedside Chloride (Blood Gas) 100 98-107 MMOL/L Bedside Glucose (Blood Gas) 153 H 65-95 MG/DL Bedside Ionized Calcium (Blood Gas) 1.16 1.15-1.33 MMOL/L Bedside Lactic Acid (Blood Gas) 0.86 H 0.36-0.75 MMOL/L Blood Gas Temperature 37.0 35.5-37.0 CELSIUS Blood Gas Flow-by 12.00 0.00-15.00 L/min Blood Gas Vent Mode NRB ROOM AIR FiO2 100.0 % Blood Gas Specimen Comment RR RN White Blood Count 7.6 4.8-10.8 K/uL Red Blood Count 4.55 4.00-5.50 MIL/uL Hemoglobin 12.7 12.0-16.0 g/dL Hematocrit 43.3 36-48 % Mean Corpuscular Volume 95.2 79-99 fL Mean Corpuscular Hemoglobin 27.9 27.0-33.0 pg Mean Corpuscular Hemoglobin Concent 29.3 L 32.0-36.0 g/dL Red Cell Distribution Width 16.4 H 11.0-15.5 % Platelet Count 78 L 130-400 K/uL Mean Platelet Volume 11.1 H 7.5-10.5 fL Immature Granulocyte % (Auto) 10.3 H 0-1 % Neutrophils (%) (Auto) 69.2 40.0-77.0 % Lymphocytes (%) (Auto) 12.9 L 21.0-51.0 % Monocytes (%) (Auto) 6.6 3.0-13.0 % Eosinophils (%) (Auto) 0.3 0.0-8.0 % Basophils (%) (Auto) 0.7 0.0-5.0 % Neutrophils # (Auto) 5.3 1.8-7.7 K/uL Lymphocytes # (Auto) 1.0 1.0-4.8 K/uL Monocytes # (Auto) 0.5 0.1-1.0 K/uL Eosinophils # (Auto) 0.02 0.00-0.70 K/uL Basophils # (Auto) 0.05 0.00-0.20 K/uL Absolute Immature Granulocyte (auto 0.78 0-1 K/uL Nucleated Red Blood Cells 0.8 H 0.0-0.19 % Red Blood Cell Morphology ANISO 1+ Sodium Level 138 136-145 mmol/L Potassium Level 6.0 *H 3.5-5.1 mmol/L Chloride Level 102 101-111 mmol/L Carbon Dioxide Level 37 H 21-32 mmol/L Blood Urea Nitrogen 40 H 7-18 mg/dL Creatinine 2.5 H 0.5-1.0 mg/dL Glomerular Filtration Rate Calc 18 >90 mL/min Random Glucose 150 H 70-105 mg/dL Lactic Acid Level 1.9 0.8-2.5 mmol/L Total Calcium 8.8 8.5-10.1 mg/dL Troponin I High Sensitivity 23 4-50 ng/L B-Type Natriuretic Peptide 776 H 0-100 pg/mL Procalcitonin 0.60 H 0.05-0.5 ng/mL Current Medications Medications (Trade) Dose Ordered Sig/Jessenia Route PRN Reason Start Time Stop Time Status Last Admin Dose Admin Albuterol Sulfate (Proventil 0.083% 2.5mg/3ml) 10 mg ONCE IH 05/07/24 19:30 06/06/24 19:29 05/07/24 20:32 10 MG DIAGNOSTICS / RADIOLOGY: [ ] ASSESSMENT: Acute hypercarbic respiratory failure with hypoventilation syndrome POA Acute renal failure POA Acute on chronic CHF with pulmonary edema POA Hyperkalemia POA Acute thrombocytopenia POA Hyperglycemia POA Hypothyroidism Hyperlipidemia POA Major Depression disorder POA Generalized Anxiety disorder POA Guillain [place] syndrome with paraphlegia Dementia POA Morbidly obese POA PLAN: We will admit patient in ICU We will keep patient nothing by mouth Will continue on Zosyn IV for empiric coverage We will add prn medication for fever,pain,cough ,nausea and vomiting We will reconcile home meds once medlist available Will seek critical care consultation Will seek nephrology consultation Will request case management service Marley catheter insertion Will request daily weight and strict I&O Will obtain renal sonogram and echocardiogram We will request labs in am Further orders to follow depending on above results Case discussed with attending physician and came up with above treatment and plan of care. ADVANCED CARE PLANNING 1. Which of the following were discussed? Hospice Care - No Therapeutic options - Yes Advance Directives - No Other discussions - 2. Discussed with who? Patient 3. Voluntary nature of this service was explained to the patient? Yes 4. Amount of time spent - __25 5. Reviewed by Physician? (if this service was performed by NPP) Yes Patient seen and examined by me. Agree with note by BREASTFEEDING PROGRAM COORDINATOR SEE ADDITIONAL ORDERS PER CHART DISCUSSED WITH NURSING STAFF JARED QUIÑONEZ AUDIT TECH May 07, 2024 22:36
--- NOTE | 2024-05-07 23:40 | NUR ---
BRAUILO SPECIFICATION CONSULTANT MADE AWARE OF CRITICAL CARE CONSULT
[2024-05-08] VITALS (36 sets, daily range): BP systolic 97–135; BP diastolic 37–71; PULSE 44–97; RESP 8–27; TEMP 98.5–98.7; O2SAT 95–100
[2024-05-08] MEDS: kayEXALate 15GM/60ML PO ONE
[2024-05-08 00:09] LABS: ABG BASE EXCESS 0.7 mmol/L (-2.0-3.0); ABG HCO3 31.7 mmol/L (21.0-28.0); ABG OXYGEN SATURATION 92.1 % (94.0-98.0); ABG PCO2 88 mmHg (32-45); ABG PH 7.173 (7.350-7.450); CARBON MONOXIDE 1.8 % (0.5-1.5); DEVICE COMMENT LR ZULEMARN; HHb 7.7; PO2, ARTERIAL BG 68.6 mmHg (83.0-108.0); VENT MODE, BG BIPAP 14 6 (ROOM AIR)
--- NOTE | 2024-05-08 00:09 | CONS ---
[facility] CONSULTATION NOTE Date Patient Seen: May 08, 2024 Time of Visit: 00:09 Supervising Physician: Dr. Adams Reason for Consultation: [facility] Primary Care Physician: Attending team: [facility] hospitalist team. Outpatient Specialists: Inpatient Consults: BIS, critical Care team Nephrology PROBLEM LIST: Acute hypercarbic respiratory failure with hypoventilation syndrome POA Acute renal failure, POA Critically elevated hyperkalemia, POA Acute on chronic CHF with pulmonary edema POA Acute thrombocytopenia POA Hyperglycemia POA Hypothyroidism Hyperlipidemia POA Major depression disorder POA Generalized anxiety disorder POA Guillain [place] syndrome with paraplegia, POA Dementia POA Morbidly obese POA HPI: Ms. Mitchell is an 88-year-old female with past medical history of asthma, chronic obstructive pulmonary disease, CHF, hypertension, hyperlipidemia, hypothyroidism, morbid obesity, dementia, generalized anxiety disorder, obstructive sleep apnea with hypo ventilation syndrome, Guillain-[place] syndrome with paraplegia, major depressive disorder, chronic respiratory failure on 4 L nasal cannula at home and chronic kidney insufficiency who was brought by ambulance to the ED for evaluation of shortness of breaths for the past week and progressive worsening today which prompted the ED visit. The patient is reported to be under hospice care at home but revoked prior to ER arrival. Patient was using 4L/NC at home and patient has been in the 70's saturation. Patient isn't able to provide information and details regarding her medical history. No family member present during my evaluation. RN reports that patient was anxious and was given Ativan1 mg and placed on BiPAP. Labs WBC 7.6, hemoglobin 12.7, hematocrit 43.3, platelet count 78. Sodium 138, potassium 6.0, carbon dioxide 37, BUN 40, creatinine 2.5, GFR 18 glucose 150, lactic acid 1.9, BNP 7 seven six, procalcitonin 0.60 troponin 23. Influenza a and B negative SARs COVID negative chest x-ray result revealed mild bilateral pulmonary infiltrates are seen may be related to mild pulmonary vascular congestion with possible superimposed pneumonitis. Initial ABGs: PH 7.177, pCO2 85, PO2 87.2, bicarbonate 30.8, O2 sats 95.1, base excess 0.1. While in the ER patient received Solu-Medrol 120 mg IV, DuoNeb treatment Zosyn IV, calcium gluconate, D50 25 g IV, insulin 5 units IV and albuterol sulfate 10 mg inhala tion, lorazepam 1 mg IV and Lasix 20 mg IV. We will admit patient for further medical management. Seen and examined patient in the ED room 14 on Bipap, Respirations even and unlabored, appears calm and comfortable. Patient was very drowsy, recently received Ativan. No family member at bedside. BIS team we will continue monitoring patient closely. Addendum: On arrival the Patient's CO2 was 85 on BiPAP. ED provider change BiPAP to AVAPS and the pCO2 increased to 121. Dry place patient back on BiPAP with improvement of CO2 at 99. Assess patient patient was somnolent but opens eyes and follows commands. Breathing was even and unlabored on BiPAP. BIS team we will continue monitoring patient closely. PAST MEDICAL HX: see above PAST SURGICAL HX: noncontributory SOCIAL HISTORY: No tobacco, ETOH, or illicit drug use Coded Allergies: No Known Allergies (Verified Allergy, Unknown, 05/29/14) REVIEW OF SYSTEMS: Unable to obtain ROS from patient due to patient is somnolent. PHYSICAL EXAM: GENERAL: Somnolent, on BiPAP HEENT: EOMI, Sclera non icteric, moist mucosa NECK: Supple, no JVD, trachea midline LUNGS: Diminished breath sounds bilaterally. No wheezes HEART: Regular rate and rhythm. Normal S1 and S2, without murmurs ABD: Abdomen soft, obese, nontender. Bowel sounds present EXT: No clubbing cyanosis or edema NEURO: Alert and oriented to person, follows commands Vital Signs (last 8hr) Date Time Temp Pulse Resp B/P (MAP) Pulse Ox O2 Delivery O2 Flow Rate FiO2 05/07/24 22:19 99 18 132/65 95 Bi-PAP+ 40 05/07/24 20:40 90 24 05/07/24 20:28 98.8 93 18 124/54 94 Bi-PAP+ 40 05/07/24 19:03 90 24 05/07/24 18:50 24 40 05/07/24 18:48 99.0 91 24 124/51 99 Non-Rebreather+ 10 99 05/07/24 18:02 98.4 92 20 112/58 92 Nonrebreathing Mask 10.0 LABS: Hematology Labs: Test 05/07/24 18:27 Range/Units White Blood Count 7.6 4.8-10.8 K/uL Red Blood Count 4.55 4.00-5.50 MIL/uL Hemoglobin 12.7 12.0-16.0 g/dL Hematocrit 43.3 36-48 % Mean Corpuscular Volume 95.2 79-99 fL Mean Corpuscular Hemoglobin 27.9 27.0-33.0 pg Mean Corpuscular Hemoglobin Concent 29.3 L 32.0-36.0 g/dL Red Cell Distribution Width 16.4 H 11.0-15.5 % Platelet Count 78 L 130-400 K/uL Mean Platelet Volume 11.1 H 7.5-10.5 fL Immature Granulocyte % (Auto) 10.3 H 0-1 % Neutrophils (%) (Auto) 69.2 40.0-77.0 % Lymphocytes (%) (Auto) 12.9 L 21.0-51.0 % Monocytes (%) (Auto) 6.6 3.0-13.0 % Eosinophils (%) (Auto) 0.3 0.0-8.0 % Basophils (%) (Auto) 0.7 0.0-5.0 % Neutrophils # (Auto) 5.3 1.8-7.7 K/uL Lymphocytes # (Auto) 1.0 1.0-4.8 K/uL Monocytes # (Auto) 0.5 0.1-1.0 K/uL Eosinophils # (Auto) 0.02 0.00-0.70 K/uL Basophils # (Auto) 0.05 0.00-0.20 K/uL Absolute Immature Granulocyte (auto 0.78 0-1 K/uL Nucleated Red Blood Cells 0.8 H 0.0-0.19 % Red Blood Cell Morphology ANISO 1+ Chemistry Labs: Test 05/07/24 18:27 Range/Units Sodium Level 138 136-145 mmol/L Potassium Level 6.0 *H 3.5-5.1 mmol/L Chloride Level 102 101-111 mmol/L Carbon Dioxide Level 37 H 21-32 mmol/L Blood Urea Nitrogen 40 H 7-18 mg/dL Creatinine 2.5 H 0.5-1.0 mg/dL Glomerular Filtration Rate Calc 18 >90 mL/min Random Glucose 150 H 70-105 mg/dL Lactic Acid Level 1.9 0.8-2.5 mmol/L Total Calcium 8.8 8.5-10.1 mg/dL Troponin I High Sensitivity 23 4-50 ng/L B-Type Natriuretic Peptide 776 H 0-100 pg/mL Procalcitonin 0.60 H 0.05-0.5 ng/mL DIAGNOSTICS / RADIOLOGY RESULTS: [ ] PLAN Admit to ICU with continuous cardiac monitoring. Monitor respiratory status closely. Continue on BiPAP, titrate according to ABGs and to keep oxygen above SpO2 equal to 92%. Albuterol and Atrovent nebulizer treatment scheduled. Continue antibiotic therapy: Zosyn Continue Lasix 40 mg IV daily. Resume home medication levothyroxine. P.r.n. medications for: Pain management, fever, hypertension, nausea, vomiting, constipation. Glucometer checks a.c. and HS with insulin regular sliding scale as needed per protocol. Blood pressure checks every 4 hours and as needed. Reconcile home medications once available. Nephrology consult. Monitor renal and liver function. Monitor electrolytes and treat accordingly. (hyperkalemia medications administered) A.m. labs: CBC, BNP, Mag, phos, TSH, A1c. GI and DVT prophylaxis. NEURO: Minimize central acting medications as possible. Fall Precautions. Well lighted room through the day and minimize interruptions through the night to prevent acute delirium. PULMONARY: Supplemental 02 as needed Titrate Fio2 to keep Spo2 > or = 90% DuoNebs and CPT as needed IS hourly while awake for pulmonary hygiene Out of bed to chair as tolerated VAP Bundle CARDIOVASCULAR: Follow hemodynamics. Titrate vasopressor to keep MAP >65 or systolic blood pressure >95mmHg GI & NUTRITION: Continue nutritional support Aspirations precautions Prokinetic agents and laxatives as needed KIDNEYS & ELECTROLYTES: Strict monitoring of intake and output Daily weights Avoid nephrotoxic agents Monitor electrolytes and replace as needed Goal urine output of 30mL/hr or 0.5mL/kg/hr ENDOCRINE: Maintain blood glucose between 100-180 at all times. Insulin sliding scale for blood glucose management INFECTIOUS DISEASE: Trend temperature. Velazco-culture if febrile. HEMATOLOGY & COAGULATION: Monitor H&H. Keep Hgb > 7 Transfuse 1 unit of PRBC for Hgb < 7 Transfuse 1 pack of platelets of platelets < 20, 000 Watch for any signs and symptoms of bleeding SKIN: Pressure ulcer prevention per facility protocol Rehab: PT/OT Code Status: Full Resuscitation Disposition: [Admit to ICU] Other: Total patient critical care time exceeds 45 minutes excluding all procedures. PILAR RAMSEY COSMETIC MAKER May 08, 2024 00:09
[2024-05-08] MEDS: SODIUM BICARB 50MEQ 50ML VIAL IV ONE ×2 (00:10→04:27)
--- NOTE | 2024-05-08 00:10 | NUR ---
RIA LEDGER CLERK MADE AWARE OF ABG RESULTS
--- NOTE | 2024-05-08 00:18 | NUR ---
DR. BURCIAGA AND CHRISTIE DUQUE AT BEDSIDE AT THIS TIME.
[2024-05-08] MEDS ORDERED: CHOL500062 PO (01:30)
[2024-05-08] MEDS ORDERED: MELA10TA2 PO (01:30)
[2024-05-08] MEDS ORDERED: GABA-529 PO (01:30)
[2024-05-08] MEDS ORDERED: LEVO75CA5 PO (01:30)
[2024-05-08] MEDS ORDERED: BACL10TA PO (01:30)
[2024-05-08] MEDS ORDERED: LORA0.5T83 PO (01:30)
[2024-05-08] MEDS ORDERED: FURO40TA5 PO (01:30)
[2024-05-08] MEDS: IpraTROPium/alBUTERol SULFATE 3 ML SOLUTION IH SCH (02:11)
[2024-05-08 03:03] LABS: ABG HCO3 37.4 mmol/L (21.0-28.0); ABG OXYGEN SATURATION 96.5 % (94.0-98.0); ABG PCO2 121 mmHg (32-45); ABG PH 7.109 (7.350-7.450); CARBON MONOXIDE 1.7 % (0.5-1.5); HHb 3.4; PO2, ARTERIAL BG 95.3 mmHg (83.0-108.0); VENT MODE, BG AVAPS EPAP7 (ROOM AIR)
--- NOTE | 2024-05-08 03:18 | NUR ---
BRAULIO TENORIO MADE AWARE OF ABG RESULTS
--- NOTE | 2024-05-08 03:26 | NUR ---
BIPAP SETTINGS: 21/02 FI02 40% RATE 26
[2024-05-08 03:31] LABS: BASOPHILS # (AUTO) 0.04 K/uL (0.00-0.20); BASOPHILS % (AUTO) 0.6 % (0.0-5.0); HEMATOCRIT 42.6 % (36-48); IMMATURE GRANULOCYTE ABSOLUTE 1.03 K/uL (0-1); LYMPHOCYTES # (AUTO) 0.3 K/uL (1.0-4.8); LYMPHOCYTES % (AUTO) 4.5 % (21.0-51.0); MEAN CORPUSCULAR HEMOGLOBIN 27.5 pg (27.0-33.0); MEAN CORPUSCULAR HGB CONC 28.9 g/dL (32.0-36.0); MEAN CORPUSCULAR VOLUME 95.3 fL (79-99); MONOCYTES # (AUTO) 0.1 K/uL (0.1-1.0); MONOCYTES % (AUTO) 1.3 % (3.0-13.0); NEUTROPHILS # (AUTO) 5.6 K/uL (1.8-7.7); NUCLEATED RED BLOOD CELLS 0.9 % (0.0-0.19); PLATELET COUNT (AUTO) 83 K/uL (130-400); RED BLOOD CELL COUNT(AUTO) 4.47 MIL/uL (4.00-5.50); RED CELL DISTRIBUTION WIDTH 16.1 % (11.0-15.5)
--- NOTE | 2024-05-08 03:35 | NUR ---
BRAULIO VARNISH THINNER AT BEDSIDE AT THIS TIME
[2024-05-08 03:46] LABS: ALBUMIN 2.8 g/dL (3.5-5.0); BILIRUBIN,TOTAL 0.9 mg/dL (0.2-1.0); CREATININE 2.5 mg/dL (0.5-1.0); MAGNESIUM 2.3 mg/dL (1.80-2.40); TOTAL PROTEIN, SERUM 6.9 g/dL (6.0-8.3)
[2024-05-08 03:48] LABS: POTASSIUM 6.4 mmol/L (3.5-5.1)
[2024-05-08] MEDS ORDERED: ALBUTEROL 0.083% 2.5 MG/3 ML INH IH SCH (04:00)
[2024-05-08 04:08] LABS: B-TYPE NATRIURETIC PEPTIDE 1010 pg/mL (0-100)
[2024-05-08] MEDS: CALCIUM GLUC 1GM/10ML VIAL ONE (04:27)
[2024-05-08] MEDS: CALCIUM GLUC 1GM 1 GM in 0.9%NACL 100ML 100 ML IV ONE (04:27)
[2024-05-08] MEDS: DEXTROSE 50%-WATER 50 ML DISP.SYRIN IV ONE ×2 (04:27→10:49)
[2024-05-08 04:28] LABS: ABG BASE EXCESS 2.9 mmol/L (-2.0-3.0); ABG HCO3 34.5 mmol/L (21.0-28.0); ABG OXYGEN SATURATION 93.8 % (94.0-98.0); ABG PCO2 99 mmHg (32-45); ABG PH 7.162 (7.350-7.450); CARBON MONOXIDE 1.7 % (0.5-1.5); DEVICE COMMENT RR RN; HHb 6.1; PO2, ARTERIAL BG 75.2 mmHg (83.0-108.0); VENT MODE, BG BIPAP 20 9 (ROOM AIR)
[2024-05-08] MEDS: INSULIN humuLIN R 100 UNIT/ML 3ML IV ONE ×2 (04:28→10:58)
[2024-05-08] MEDS: kayEXALate 15GM/60ML PO SCH (04:29)
[2024-05-08 05:24] LABS: BAND NEUTROPHILS % (MANUAL) 4 % (0-2); LYMPHOCYTES % (MANUAL) 6 % (22-44); MAN.DIFF COMMENT-IMPRESSION MANUAL DIFFERENTIAL; MONOCYTES % (MANUAL) 7 % (2-9); SEGMENTED NEUTROPHILS % 83 % (40-70); TOTAL CELLS COUNTED 100
[2024-05-08 05:26] LABS: HEMOGLOBIN A1C 6.8 % (4.0-6.0)
[2024-05-08] MEDS: ZOSYN 3.375GM+NS 50ML 50 ML IV SCH (05:38)
--- NOTE | 2024-05-08 06:55 | EKG ---
[facility] Test Date: 2024-05-07 Test Time: 17:45:41 Pat Name: TEMITOPE ROBBINS Department: EDHIP Patient ID: [id number] Room: 217 Gender: F Coat Examiner: [id number] : 1935 Requested By: EMILY COREAS Order Number: [id number] Reading MD: Angle Calles Measurements Intervals [place]ahan Rate: 89 P: 66 MN: 189 QRS: 156 QRSD: 127 T: 200 QT: 365 QTc: 444 Interpretive Statements Sinus rhythm wandering baseline Ventricular premature complex Right bundle branch block Nonspecific T abnormalities, lateral leads Compared to ECG 06/05/2019 12:35:31 Ventricular premature complex(es) now present Right bundle-branch block now present T-wave abnormality now present ST (T wave) deviation no longer present Possible ischemia no longer present Electronically Signed On 05-11-2024 17:18:58 [employer] by Angel Calles Please click the below link to view image of tracing.
[2024-05-08 08:40] LABS: ABG BASE EXCESS 1.3 mmol/L (-2.0-3.0); ABG HCO3 33.5 mmol/L (21.0-28.0); ABG OXYGEN SATURATION 94.5 % (94.0-98.0); ABG PCO2 103 mmHg (32-45); ABG PH 7.129 (7.350-7.450); CARBON MONOXIDE 1.9 % (0.5-1.5); HHb 5.4; PO2, ARTERIAL BG 79.9 mmHg (83.0-108.0); VENT MODE, BG BIPAP (ROOM AIR)
--- NOTE | 2024-05-08 08:42 | NUR ---
CRITICAL CARE TEAM PAGED TO REPORT LAB RESULTS
--- NOTE | 2024-05-08 08:45 | HMCIMG ---
US RENAL SONOGRAM HISTORY: Acute renal failure COMPARISON: None TECHNIQUE: Renal and bladder ultrasound study was performed. FINDINGS: Both kidneys are not seen limiting evaluation. Bladder is poorly distended with Marley catheter. The study is limited due to patient's body habitus. IMPRESSION: 1. Both kidneys are not seen.
--- NOTE | 2024-05-08 08:47 | NUR ---
NEPHROLOGY PAGED. CALL DROP.
[2024-05-08 09:09] LABS: POTASSIUM 5.8 mmol/L (3.5-5.1)
[2024-05-08] MEDS: furoSEMIDE 40MG VIAL IV SCH (09:23)
[2024-05-08 09:36] LABS: CREATININE 2.3 mg/dL (0.5-1.0)
[2024-05-08 09:45] LABS: ALBUMIN 2.4 g/dL (3.5-5.0); BILIRUBIN,TOTAL 0.6 mg/dL (0.2-1.0); TOTAL PROTEIN, SERUM 5.9 g/dL (6.0-8.3)
[2024-05-08 10:07] LABS: INR 1.04 (0.85-1.15); PROTHROMBIN TIME 11.2 SEC (9.6-11.6)
[2024-05-08 10:09] LABS: PARTIAL THROMBOPLASTIN TIME 28.5 SEC (26.3-35.5)
[2024-05-08] MEDS: FENTanyl CITRate PF 50 MCG/1 ML 2ML VIAL IVP ONE (10:45)
[2024-05-08] MEDS: MIDAZOLAM 50MG-0.9% NS 50ML 50 ML IV SCH (10:55)
--- NOTE | 2024-05-08 10:55 | NUR ---
1046 RSI 23 TEETH 7.5 ETT. FENTANYL 100MCG IVP, ETOMIDATE 20MG IVP, ROCIRONIUM 70MG IVP. VITAL SIGNS WNL. WILL CONTINUE TO MONITOR
[2024-05-08] MEDS: FENTanyl 1000MCG+NS 100ML 100 ML IV SCH (10:56)
[2024-05-08] MEDS: FENTanyl 1000MCG+NS 100ML 100 ML IV ONE (10:56)
[2024-05-08] MEDS: FENTanyl CITRate PF 50 MCG/1 ML 2ML VIAL ONE (10:56)
--- NOTE | 2024-05-08 10:59 | PN ---
[facility] PROGRESS NOTE Date Patient Seen: May 08, 2024 Time of Visit: 10:59 Supervising Physician: David Adams MD Primary Care Physician: Attending team: [facility] hospitalist team. 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 CBC similar to yesterday platelet count improved slightly 31634 today. Chemistry sodium was 146 potassium is 5.8 covered with Lokelma and 5 units of regular insulin IV push with half an amp of D50 BUN 39 creatinine 2.3 and GFR of 20 glucose 196 mg/dL total calcium 7.9 albumin 2.4 and total protein 5.9. Chest x-ray no pneumothorax or pleural effusion. Bilateral pulmonary vascular congestion noted with possible superimposed pneumonitis. CT of the head showed no acute intracranial bleed seen. Atrophy with white matter changes. Pending a 2D echo. Discussed goals of care with daughters and they requested full code including intubation at this time. Decision was made to intubate and both in agreement. REVIEW OF SYSTEMS: Unable to obtain ROS from patient due to patient is somnolent. PHYSICAL EXAM: GENERAL: Somnolent, on BiPAP HEENT: EOMI, Sclera non icteric, moist mucosa NECK: Supple, no JVD, trachea midline LUNGS: Diminished breath sounds bilaterally. No wheezes HEART: Regular rate and rhythm. Normal S1 and S2, without murmurs ABD: Abdomen soft, obese, nontender. Bowel sounds present EXT: No clubbing cyanosis or edema NEURO: Alert and oriented to person, follows commands Vital Signs (last 8hr) Date Time Temp Pulse Resp B/P (MAP) Pulse Ox O2 Delivery O2 Flow Rate FiO2 05/08/24 10:53 88 26 106/59 99 Ventilator+ 60 05/08/24 09:00 90 26 112/55 95 Bi-PAP+ 40 05/08/24 08:05 93 26 106/52 92 Bi-PAP+ 40 05/08/24 07:32 97.0 93 26 99/45 95 Bi-PAP+ 40 05/08/24 07:14 96 27 05/08/24 07:12 96 27 40 05/08/24 06:21 97.9 96 116/41 97 Bi-PAP+ 40 05/08/24 04:48 98.4 98 26 116/44 98 Bi-PAP+ 40 05/08/24 04:29 92 26 05/08/24 03:26 97 26 40 LABS: Hematology Labs: Test 05/08/24 03:17 Range/Units White Blood Count 7.0 4.8-10.8 K/uL Red Blood Count 4.47 4.00-5.50 MIL/uL Hemoglobin 12.3 12.0-16.0 g/dL Hematocrit 42.6 36-48 % Mean Corpuscular Volume 95.3 79-99 fL Mean Corpuscular Hemoglobin 27.5 27.0-33.0 pg Mean Corpuscular Hemoglobin Concent 28.9 L 32.0-36.0 g/dL Red Cell Distribution Width 16.1 H 11.0-15.5 % Platelet Count 83 L 130-400 K/uL Mean Platelet Volume 11.0 H 7.5-10.5 fL Immature Granulocyte % (Auto) 14.6 H 0-1 % Neutrophils (%) (Auto) 79.0 H 40.0-77.0 % Lymphocytes (%) (Auto) 4.5 L 21.0-51.0 % Monocytes (%) (Auto) 1.3 L 3.0-13.0 % Eosinophils (%) (Auto) 0.0 0.0-8.0 % Basophils (%) (Auto) 0.6 0.0-5.0 % Neutrophils # (Auto) 5.6 1.8-7.7 K/uL Lymphocytes # (Auto) 0.3 L 1.0-4.8 K/uL Monocytes # (Auto) 0.1 0.1-1.0 K/uL Eosinophils # (Auto) 0.00 0.00-0.70 K/uL Basophils # (Auto) 0.04 0.00-0.20 K/uL Absolute Immature Granulocyte (auto 1.03 H 0-1 K/uL Segmented Neutrophils % 83 H 40-70 % Band Neutrophils % 4 H 0-2 % Lymphocytes % (Manual) 6 L 22-44 % Monocytes % (Manual) 7 2-9 % Nucleated Red Blood Cells 0.9 H 0.0-0.19 % Differential Comment MANUAL DIFFERENTIAL White Cell Morphology Comment Platelet Morphology Comment See comments Red Blood Cell Morphology See comments Chemistry Labs: Test 05/08/24 09:00 05/08/24 04:01 05/08/24 03:17 05/07/24 18:27 Range/Units Sodium Level 146 H 136-145 mmol/L Potassium Level 5.8 H 3.5-5.1 mmol/L Chloride Level 108 101-111 mmol/L Carbon Dioxide Level 35 H 21-32 mmol/L Blood Urea Nitrogen 39 H 7-18 mg/dL Creatinine 2.3 H 0.5-1.0 mg/dL Glomerular Filtration Rate Calc 20 >90 mL/min Random Glucose 196 H 70-105 mg/dL Total Calcium 7.9 L 8.5-10.1 mg/dL Total Bilirubin 0.6 # 0.2-1.0 mg/dL Aspartate Amino Transf (AST/SGOT) 18 10-37 U/L Alanine Aminotransferase (ALT/SGPT) 22 12-78 U/L Alkaline Phosphatase 78 50-136 U/L Total Protein 5.9 L 6.0-8.3 g/dL Albumin 2.4 L 3.5-5.0 g/dL Whole Blood Glucose 195 H 70-110 MG/DL Hemoglobin A1c 6.8 H 4.0-6.0 % Estimated Average Glucose (eAG) 148 H 70-126 mg/dL Magnesium Level 2.30 1.80-2.40 mg/dL Troponin I High Sensitivity 18 4-50 ng/L B-Type Natriuretic Peptide 1010 H 0-100 pg/mL Lactic Acid Level 1.9 0.8-2.5 mmol/L Procalcitonin 0.60 H 0.05-0.5 ng/mL Coagulation Labs: Test 05/08/24 09:38 Range/Units Prothrombin Time 11.2 9.6-11.6 SEC Prothromb Time International Ratio 1.04 0.85-1.15 Activated Partial Thromboplast Time 28.5 26.3-35.5 SEC DIAGNOSTICS / RADIOLOGY RESULTS: Signed PATIENT: TEMITOPE ROBBINS MR#: [id number] : 1935 SEX: F AGE: 88 LOCATION: [facility] ORDER 105 STATUS: ADM IN REPORT#: [id number] SERVICE 1054 REASON: ETT REPOSITION ORDERING PHYSICIAN: VERNA ONOFRE PROCEDURE: CXR1VW - CHEST 1VW CHEST 1VW HISTORY: Tube placement COMPARISON: None FINDINGS: A frontal projection of the chest was obtained. No acute pulmonary infiltrates is seen. The heart is borderline enlarged. Prominent interstitial markings are seen. Endotracheal tube is seen with distal tip at 2.8 cm above taty. All the lines and tubes are again seen in place. Aortic calcifications are seen. Prominent interstitial markings are seen. The study is limited due to patient's large body habitus. IMPRESSION: 1. No acute pulmonary infiltrate is seen. DICTATED BY: RAKEL WELSH MD DATE: 05/08/24 1139 ELECTRONICALLY SIGNED BY: RAKEL WELSH MD DATE: 05/08/24 1142 PLAN Admit to ICU with continuous cardiac monitoring. Intubate Follow ABGs and adjust ventilator settings as needed. Albuterol and Atrovent nebulizer treatment scheduled. Continue antibiotic therapy: Zosyn add doxycycline for CAP coverage Continue Lasix 40 mg IV daily. Follow Nephrology recommendations. Monitor electrolytes and cover accordingly. Monitor renal and liver function. GI and DVT prophylaxis. NEURO: Minimize central acting medications as possible. Fall Precautions. Well lighted room through the day and minimize interruptions through the night to prevent acute delirium. CT of the head rule out intracranial bleed due to altered mental status PULMONARY: Supplemental 02 as needed Titrate Fio2 to keep Spo2 > or = 90% DuoNebs and CPT as needed IS hourly while awake for pulmonary hygiene Out of bed to chair as tolerated VAP Bundle Ventilator settings assist control volume control tidal volume 400 respiratory rate of 22 FiO2 of 60% and PEEP of 5. Monitor chest x-ray Duo nebs as needed Solu-Medrol 40 mg IV push b.i.d. CARDIOVASCULAR: Follow hemodynamics. Titrate vasopressor to keep MAP >65 or systolic blood pressure >95mmHg ICU vital signs Telemetry monitoring 2D echo pending GI & NUTRITION: Continue nutritional support Aspirations precautions Prokinetic agents and laxatives as needed NG tube Tube feedings Dietary consult for recommendations MiraLax daily for bowel regimen KIDNEYS & ELECTROLYTES: Strict monitoring of intake and output Daily weights Avoid nephrotoxic agents Monitor electrolytes and replace as needed Goal urine output of 30mL/hr or 0.5mL/kg/hr Follow nephrology recommendation Monitor electrolytes closely and correct accordingly Lokelma 10 mg 3 times a day then 10 mg daily ENDOCRINE: Maintain blood glucose between 100-180 at all times. Insulin sliding scale for blood glucose management Lantus for long-acting insulin Insulin sliding scale q.6 hours Hypoglycemia protocol p.r.n. INFECTIOUS DISEASE: Trend temperature. Velazco-culture if febrile. influenza- covid- strep abx: zosyn and doxy HEMATOLOGY & COAGULATION: Monitor H&H. Keep Hgb > 7 Transfuse 1 unit of PRBC for Hgb < 7 Transfuse 1 pack of platelets of platelets < 20, 000 Watch for any signs and symptoms of bleeding monitor platelets and for bleeding autoimmune work up SKIN: Pressure ulcer prevention per facility protocol turn q2 hrs per facilty protocol Rehab: PT/OT Code Status: Full Resuscitation Disposition: [Admit to ICU] Other: Total patient critical care time exceeds 45 minutes excluding all procedures. VERNA ONOFRE [facility] May 08, 2024 10:59
--- NOTE | 2024-05-08 10:59 | PRN ---
[facility] Procedure Note-ETube [facility] Pulmonary and Critical Care Service Procedure Note DATE OF PROCEDURE: 05/08/24 at 1046 INDICATION: [acute hypoxemic, hypercapnic resp failure Procedure performed: -Endotracheal intubation. Indication for procedure: -Acute respiratory failure. Pre-procedure checklist: -Informed consent obtained. -Time out per hospital policy. Medications used: -fentanyl 100 mg -Etomidate 20 mg IV -rocuronium 50 mg IV Description of procedure: Hand hygiene was performed. Patient was sedated with IV Etomidate and paralyzed with IV Succinylcholine. A [7.5] endotracheal tube was inserted through the vocal cords on the first attempt using direct laryngoscopy with [Mac blade size 4], grade 1 view. Tube secured at [22] cm at lip level. Bilateral breath sounds auscultated. Positive end-tidal CO2 capnography. Patient maintained 100% SpO2 during the entire procedure. Procedure completed without complications. Post-procedure chest x-ray showed proper placement of endotracheal tube. Procedure was performed under direct supervision by Dr. David Adams MD Time spent performing the procedure is independent of the time spent planning and coordinating the patient's care. VERNA ONOFRE [facility] May 08, 2024 10:59
[2024-05-08] MEDS ORDERED: FENTanyl 1000MCG+NS 100ML 100 ML IV SCH (11:00)
[2024-05-08] MEDS ORDERED: MIDAZOLAM HCL 50 MG in 0.9%NACL 50ML 50 ML IV SCH (11:00)
--- NOTE | 2024-05-08 11:02 | NUR ---
ORDERED LOKELMA GIVEN OGT ROUTE
[2024-05-08] MEDS: NA ZIRCON CYCLOSIL(LOKELMA 10GM) PO ONE (11:04)
--- NOTE | 2024-05-08 11:10 | NUR ---
PER VERNA, ETT REPOSITIONED AT 22CM AT THE TEETH.
[2024-05-08] MEDS: DOXYCYCLINE 100MG+NS 250ML 250 ML IV SCH (11:14)
--- NOTE | 2024-05-08 11:16 | NUR ---
CT ON HOLD YAO SHANNON TO CALL RESPIRATORY FOR ASSISTANCE TO RADIOLOGY DEPT. WILL CALL WHEN READY
--- NOTE | 2024-05-08 11:28 | HMCIMG ---
CHEST 1VW HISTORY: Shortness of breath COMPARISON: 05/07/2024 FINDINGS: A frontal projection of the chest was obtained. Mild bilateral pulmonary infiltrates are seen may be related to mild pulmonary vascular congestion with possible superimposed pneumonitis. The heart is borderline enlarged. Degenerative changes are seen. Aortic calcifications are seen. IMPRESSION: 1. Mild bilateral pulmonary infiltrates are seen may be related to mild pulmonary vascular congestion with possible superimposed pneumonitis.
--- NOTE | 2024-05-08 11:42 | HMCIMG ---
CHEST 1VW HISTORY: Tube placement COMPARISON: None FINDINGS: A frontal projection of the chest was obtained. No acute pulmonary infiltrates is seen. The heart is borderline enlarged. Prominent interstitial markings are seen. Endotracheal tube is seen with distal tip at 2.8 cm above taty. All the lines and tubes are again seen in place. Aortic calcifications are seen. Prominent interstitial markings are seen. The study is limited due to patient's large body habitus. IMPRESSION: 1. No acute pulmonary infiltrate is seen.
--- NOTE | 2024-05-08 12:34 | HMCIMG ---
CHEST 1VW HISTORY: Post intubation COMPARISON: None FINDINGS: A frontal projection of the chest was obtained. No acute pulmonary infiltrates is seen. The heart is borderline enlarged. Endotracheal tube is seen with distal tip at 1.1 cm above taty. The study is limited due to patient's large body habitus. All the lines and tubes are again seen in place. Aortic calcifications are seen. Status post cholecystectomy changes are seen. IMPRESSION: 1. No acute pulmonary infiltrate is seen.
--- NOTE | 2024-05-08 13:05 | PN ---
[facility] PROGRESS NOTE Date of Service: May 08, 2024 Time of Service: 13:02 SUBJECTIVE: [ ] The patient has been seen and examined today during my rounding, currently intubated, on mechanical ventilation, BP 115/70, afebrile, saturating 100% on mechanical ventilation. CBC shows hemoglobin 12.3, hematocrit 42.6, ABG earlier this morning with a pH of 7.12, pCO2 103. Bicarb of 33.5. Chest x-ray showing ET tube with distal tip at 2.8 cm above the taty. REVIEW OF SYSTEMS CONSTITUTIONAL: Denies fevers, chills, or night sweats. No unintentional weight loss reported. NEUROLOGICAL: Denies headache, amaurosis fugax, motor weakness, sensory deficit, vertigo/spinning sensation, gait abnormalities, or tremors. ENT: No hearing loss, otalgia, otorrhea, rhinitis, rhinorrhea, hoarseness, or sore throat. CARDIOVASCULAR: Denies any exertional angina, dyspnea on exertion, orthopnea, paroxysmal nocturnal dyspnea, palpitations, life-threatening arrhythmias, claudication. PULMONARY: Denies any shortness of breath, cough, phlegm/sputum, hemoptysis, pleuritic chest pain. SLEEP: Denies morning headaches, daytime somnolence or napping. Denies difficulty falling asleep, staying asleep, waking from sleep. Denies knowledge of snoring. GASTROINTESTINAL: Denies any type of dysphagia to either liquids or solids. Denies nausea, vomiting, pyrosis, early satiety, abdominal pain, diarrhea, constipation, or changes in stool consistency or caliber. Denies coffee-ground emesis, hematemesis, hematochezia, or melanotic stools. GENITOURINARY: Denies frequency, urgency, nocturia, hematuria or incontinence (Storage/Irritative symptoms.) Low urinary stream, straining to void, urinary intermittency or hesitancy, splitting of the voiding stream, terminal dribbling. ENDOCRINOLOGIC: Denies polyuria, polydipsia, polyphagia or heat/cold intolerances. HEMATOLOGIC: Denies thrombophilia/previous clots, or coagulopathy/bleeding disorders. ONCOLOGIC: Denies personal history of malignancy. DERMATOLOGIC: Denies rashes or pruritus. PSYCHIATRIC: Denies any suicidal or homicidal ideation. Denies hallucinations. PHYSICAL EXAM GENERAL APPEARANCE: The patient is awake, alert, and oriented, in no acute cardiopulmonary distress. NEUROLOGICAL: Cranial nerves II-XII grossly intact. Motor is 5/5 in bilateral upper and lower extremities proximal to distal. No sensory deficits. HEENT: Face is symmetric. Pupils are equal and reactive. Extraocular movements are intact. NECK: Supple. No JVD. No thyromegaly. No submental, submandibular, pre-/postauricular, occipital or supraclavicular lymphadenopathy. CHEST: Normal chest expansion. No Telemetry. LUNGS: Absence of any rales, rhonchi or any wheezing. CARDIOVASCULAR: Regular. S1 and S2 normal. No appreciable rubs, murmurs or gallops. ABDOMEN: Soft, nontender, and nondistended. There is no rebound, voluntary guarding, or rigidity. : Deferred. No Marley. EXTREMITIES: Non-edematous and not cyanotic. No clubbing. Good capillary refill. SKIN: No skin breakdown. Vital Signs (last 8hr) Date Time Temp Pulse Resp B/P (MAP) Pulse Ox O2 Delivery O2 Flow Rate FiO2 05/08/24 12:35 77 26 115/70 100 Ventilator+ 60 05/08/24 11:43 87 26 117/64 100 Ventilator+ 60 05/08/24 10:53 88 26 106/59 99 Ventilator+ 60 05/08/24 09:00 90 26 112/55 95 Bi-PAP+ 40 05/08/24 08:05 93 26 106/52 92 Bi-PAP+ 40 05/08/24 07:32 97.0 93 26 99/45 95 Bi-PAP+ 40 05/08/24 07:14 96 27 05/08/24 07:12 96 27 40 05/08/24 06:21 97.9 96 116/41 97 Bi-PAP+ 40 LABS: Laboratory: Test 05/08/24 09:38 05/08/24 09:00 05/08/24 08:37 05/08/24 04:26 Range/Units Prothrombin Time 11.2 9.6-11.6 SEC Prothromb Time International Ratio 1.04 0.85-1.15 Activated Partial Thromboplast Time 28.5 26.3-35.5 SEC Sodium Level 146 H 136-145 mmol/L Potassium Level 5.8 H 3.5-5.1 mmol/L Chloride Level 108 101-111 mmol/L Carbon Dioxide Level 35 H 21-32 mmol/L Blood Urea Nitrogen 39 H 7-18 mg/dL Creatinine 2.3 H 0.5-1.0 mg/dL Glomerular Filtration Rate Calc 20 >90 mL/min Random Glucose 196 H 70-105 mg/dL Total Calcium 7.9 L 8.5-10.1 mg/dL Total Bilirubin 0.6 # 0.2-1.0 mg/dL Aspartate Amino Transf (AST/SGOT) 18 10-37 U/L Alanine Aminotransferase (ALT/SGPT) 22 12-78 U/L Alkaline Phosphatase 78 50-136 U/L Total Protein 5.9 L 6.0-8.3 g/dL Albumin 2.4 L 3.5-5.0 g/dL Blood Gas Specimen Type Arterial Arterial Blood pH 7.129 *L 7.350-7.450 Arterial Blood Partial Pressure CO2 103 *H 32-45 mmHg Arterial Blood Partial Pressure O2 79.9 L 83.0-108.0 mmHg Arterial Blood HCO3 33.5 H 21.0-28.0 mmol/L Arterial Blood Oxygen Saturation 94.5 94.0-98.0 % Arterial Blood Base Excess 1.3 -2.0-3.0 mmol/L Hemoglobin (Blood Gas) 13.0 12.0-16.0 g/dL Sodium (Blood Gas) 139 136-145 MMOL/L Bedside Potassium (Blood Gas) 6.1 *H 3.4-4.5 MMOL/L Bedside Chloride (Blood Gas) 98 98-107 MMOL/L Bedside Glucose (Blood Gas) 218 H 65-95 MG/DL Bedside Ionized Calcium (Blood Gas) 1.22 1.15-1.33 MMOL/L Bedside Lactic Acid (Blood Gas) 2.16 H 0.36-0.75 MMOL/L Blood Gas Temperature 37.0 35.5-37.0 CELSIUS Blood Gas Vent Mode BIPAP ROOM AIR FiO2 40.0 % Blood Gas Specimen Comment RRMIKE Blood Gas Respiration Rate 26.0 min. Test 05/08/24 04:01 05/08/24 03:17 05/08/24 03:00 05/07/24 20:16 Range/Units Whole Blood Glucose 195 H 70-110 MG/DL White Blood Count 7.0 4.8-10.8 K/uL Red Blood Count 4.47 4.00-5.50 MIL/uL Hemoglobin 12.3 12.0-16.0 g/dL Hematocrit 42.6 36-48 % Mean Corpuscular Volume 95.3 79-99 fL Mean Corpuscular Hemoglobin 27.5 27.0-33.0 pg Mean Corpuscular Hemoglobin Concent 28.9 L 32.0-36.0 g/dL Red Cell Distribution Width 16.1 H 11.0-15.5 % Platelet Count 83 L 130-400 K/uL Mean Platelet Volume 11.0 H 7.5-10.5 fL Immature Granulocyte % (Auto) 14.6 H 0-1 % Neutrophils (%) (Auto) 79.0 H 40.0-77.0 % Lymphocytes (%) (Auto) 4.5 L 21.0-51.0 % Monocytes (%) (Auto) 1.3 L 3.0-13.0 % Eosinophils (%) (Auto) 0.0 0.0-8.0 % Basophils (%) (Auto) 0.6 0.0-5.0 % Neutrophils # (Auto) 5.6 1.8-7.7 K/uL Lymphocytes # (Auto) 0.3 L 1.0-4.8 K/uL Monocytes # (Auto) 0.1 0.1-1.0 K/uL Eosinophils # (Auto) 0.00 0.00-0.70 K/uL Basophils # (Auto) 0.04 0.00-0.20 K/uL Absolute Immature Granulocyte (auto 1.03 H 0-1 K/uL Segmented Neutrophils % 83 H 40-70 % Band Neutrophils % 4 H 0-2 % Lymphocytes % (Manual) 6 L 22-44 % Monocytes % (Manual) 7 2-9 % Nucleated Red Blood Cells 0.9 H 0.0-0.19 % Differential Comment MANUAL DIFFERENTIAL White Cell Morphology Comment Platelet Morphology Comment See comments Red Blood Cell Morphology See comments Hemoglobin A1c 6.8 H 4.0-6.0 % Estimated Average Glucose (eAG) 148 H 70-126 mg/dL Magnesium Level 2.30 1.80-2.40 mg/dL Troponin I High Sensitivity 18 4-50 ng/L B-Type Natriuretic Peptide 1010 H 0-100 pg/mL Blood Gas Tidal Volume 500 ml Urine Color YELLOW YELLOW Urine Appearance CLEAR CLEAR Urine pH 5.0 5.0-8.0 Urine Specific [place] 1.015 1.001-1.031 Urine Protein 30 H NEGATIVE mg/dL Urine Glucose (UA) NEGATIVE NEGATIVE mg/dL Urine Ketones NEGATIVE NEGATIVE mg/dL Urine Occult Blood SMALL H NEGATIVE Urine Nitrate NEGATIVE NEGATIVE Urine Bilirubin NEGATIVE NEGATIVE mg/dL Urine Urobilinogen 0.2 0.2-1.0 mg/dL Urine Leukocyte Esterase NEGATIVE NEGATIVE Alea/uL Urine RBC 2-5 H 0-1 /HPF Urine WBC 2-5 H 0-1 /HPF Urine Squamous Epithelial Cells RARE 0-2 /HPF Urine Bacteria RARE None Seen /HPF Urine Other Casts 3 None Seen /LPF Test 05/07/24 19:00 05/07/24 18:35 05/07/24 18:27 Range/Units Influenza Type A Antigen Negative For Type A NEGATIVE Influenza Type B Antigen Negative For Type B NEGATIVE SARS-CoV-2, RNA, NAAT NEGATIVE SARS CoV-2 NEGATIVE Blood Gas Flow-by 12.00 0.00-15.00 L/min Lactic Acid Level 1.9 0.8-2.5 mmol/L Procalcitonin 0.60 H 0.05-0.5 ng/mL Current Medications Medications (Trade) Dose Ordered Sig/Jessenia Route PRN Reason Start Time Stop Time Status Last Admin Dose Admin Albuterol (DUOneb) 1 udvial [id number] 05/08/24 02:00 06/07/24 01:59 05/08/24 10:17 1 UDVIAL Albuterol Sulfate (Proventil 0.083% 2.5mg/3ml) 10 mg ONCE IH 05/07/24 19:30 05/08/24 07:02 DC 05/07/24 20:32 10 MG Albuterol Sulfate (Proventil 0.083% 2.5mg/3ml) 10 mg ONCE IH 05/08/24 04:00 05/08/24 07:02 DC Artificial Tears (Artificial Tears) 1 DROP OR AD Q4H4 OU 05/08/24 12:00 06/07/24 11:59 Chlorhexidine Gluconate (Peridex) 15 ml Q8H MM 05/08/24 11:00 05/22/24 10:59 Doxycycline Hyclate 250 ml @ 125 mls/hr Q12H IV 05/08/24 11:00 05/18/24 10:59 05/08/24 11:14 125 MLS/HR Fentanyl Citrate 100 ml @ 2.5 mls/hr PROTOCOL IV 05/08/24 11:00 05/08/24 10:56 DC Fentanyl Citrate 100 ml @ 0 mls/hr PROTOCOL IV 05/08/24 11:00 05/15/24 10:59 05/08/24 10:56 2.5 MLS/HR Furosemide (LASix 40MG VIAL) 40 mg Q12H IV 05/08/24 09:30 06/07/24 09:29 05/08/24 09:23 40 MG Levothyroxine Sodium (SYNTHroid VIAL 100MCG) 75 mcg DAILY@0630 IV 05/09/24 06:30 06/08/24 06:29 Midazolam HCl 50 ml @ 0 mls/hr PROTOCOL IV 05/08/24 11:00 05/15/24 10:59 05/08/24 10:55 1 MLS/HR Midazolam HCl 50 mg/Sodium Chloride 50 ml @ 0 mls/hr PROTOCOL IV 05/08/24 11:00 05/08/24 10:57 DC Piperacillin Sod/ Tazobactam Sod 50 ml @ 12.5 mls/hr Q12H IV 05/08/24 05:00 05/18/24 04:59 05/08/24 05:38 12.5 MLS/HR Sodium Polystyrene Sulfonate (kayEXALate 15 GM/60 ML) 15 gm Q2H PO 05/08/24 04:00 05/08/24 06:01 DC 05/08/24 06:10 15 GM DIAGNOSTICS / RADIOLOGY: [ ] CHEST 1VW HISTORY: Tube placement COMPARISON: None FINDINGS: A frontal projection of the chest was obtained. No acute pulmonary infiltrates is seen. The heart is borderline enlarged. Prominent interstitial markings are seen. Endotracheal tube is seen with distal tip at 2.8 cm above taty. All the lines and tubes are again seen in place. Aortic calcifications are seen. Prominent interstitial markings are seen. The study is limited due to patient's large body habitus. IMPRESSION: 1. No acute pulmonary infiltrate is seen. 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 Continue broad-spectrum IV antibiotics Follow results of septic workup Echocardiogram to evaluate ejection fraction Follow CT head without contrast Replace electrolytes IV per protocol A.m. labs GI DVT prophylaxis Prognosis remains guarded Total ICU time spent greater than 30 minutes RADHA WHITTINGTON MD May 08, 2024 13:05
--- NOTE | 2024-05-08 14:39 | HMCIMG ---
CT HEAD/BRAIN W/O CONTRAST HISTORY: Altered mental status COMPARISON: None TECHNIQUE: Multiple sequential axial images of the head were obtained from the base of the skull through vertex. Patient was not given contrast through intravenous route. FINDINGS: The ventricles and extraventricular CSF spaces are dilated consistent with cerebral atrophy. Nonspecific white matter changes seen. There is no midline shift, mass effect or herniation. No acute intracranial bleed is seen. Visualized portion of the paranasal sinuses are grossly within normal limits. IMPRESSION: 1. No acute intracranial bleed is seen. 2. Atrophy with white matter changes. CT was performed with one or more following dose reduction techniques: automated exposure control, adjustment of the mA and kv according to patient's size, or use of a iterative reconstruction technique.
[2024-05-08 14:56] LABS: ABG BASE EXCESS 8.8 mmol/L (-2.0-3.0); ABG HCO3 28.9 mmol/L (21.0-28.0); ABG OXYGEN SATURATION 98.1 % (94.0-98.0); ABG PCO2 27 mmHg (32-45); ABG PH 7.642 (7.350-7.450); DEVICE COMMENT RRROSIE; PO2, ARTERIAL BG 87.5 mmHg (83.0-108.0); VENT MODE, BG AC (ROOM AIR)
[2024-05-08] MEDS: ARTIFICAL TEARS SOL 15 ML OU SCH (16:00)
[2024-05-08] MEDS ORDERED: LEVOTHYROXINE PO (16:02)
[2024-05-08 17:00] LABS: CREATININE 2.4 mg/dL (0.5-1.0); MAGNESIUM 1.9 mg/dL (1.80-2.40); POTASSIUM 4.4 mmol/L (3.5-5.1)
[2024-05-08] MEDS: CHLORHEXIDINE GLUCONATE 15 ML MOUTHWASH MM SCH (17:04)
[2024-05-08] MEDS: INSULIN humuLIN R 100 UNIT/ML 3ML SQ SCH (18:00)
[2024-05-08] MEDS: FENTanyl 2500MCG+NS 250ML 250 ML IV SCH (19:29)
[2024-05-08] MEDS: Solu-medROL 40MG VIAL IVP SCH (20:01)
[2024-05-08] MEDS: INSULIN GLARgine 100 UNITS/ML 10 ML VIAL SQ SCH (21:00)
[2024-05-08] MEDS: NA ZIRCON CYCLOSIL(LOKELMA 10GM) PO SCH (21:00)
--- NOTE | 2024-05-08 23:23 | HMCSR ---
APPROVED REPORT EXAM: Two-dimensional and M-mode echocardiogram with Doppler and color Doppler. INDICATION ICD: Heart Failure 2D Dimensions RVDd4.1 cmLVEF(%)48.7 (>50%)LVED Vol(simp.)92.7 mL IVSd0.8 (0.7-1.1cm)FS(%)24 %LVES Vol(simp.)37.8 mL LVDd4.5 (3.8-5.6cm)LA (2D)3.8 (1.6-4.0cm)LVEF(%, simp.)59 % PWd1.0 (0.7-1.1cm)Ao Root(2D)3.0 (2.0-3.7cm)LA ESV INDEX (4CH)21.80 mL/m2 IVSs1.0 cmLVOT diam2.0 (1.8-2.4cm)LA ESV INDEX (2CH)31.00 mL/m2 LVDs3.4 (2.5-4.0cm)LA ESV INDEX (BP)27.90 mL/m2 PWs1.5 cm M-Mode Dimensions EPSS0.9 cm LA (MM)4.9 (1.6-4.0cm) Ao Root(MM)2.7 (2.0-3.7cm) Aortic Valve AoV VTI0.3 mAo Mean GR3.0 mmHgLVOT VTI0.16 m TDI Medial E' Peak V5.50 cm/sLateral E' Peak V7.80 cm/s Pulmonary Valve PV Vmax0.8 m/s PV Peak GR2.6 mmHg Left Ventricle The left ventricle is normal size. No regional wall motion abnormalities noted. Mild concentric left ventricular hypertrophy. Left ventricle systolic function is low-normal, estimated LVEF is 50-55%. In determinate diastolic function. Right Ventricle The right ventricle is normal size. The right ventricular systolic function is normal. Atria The left atrium size is normal. The right atrium size is normal. Aortic Valve Aortic valve is probably trileaflet. The leaflets are mildly thickened and calcified. No aortic regur gitation is present. There is no aortic valvular stenosis. Mitral Valve Mild mitral annular calcification is noted. The leaflets are mildly thickened and calcified. Trace mi tral regurgitation. There is no mitral valve stenosis. Tricuspid Valve The tricuspid valve is normal in structure. Trace tricuspid regurgitation. RVSP is normal. Pulmonic Valve Pulmonic valve is not well visualized. Great Vessels The aortic root is normal in size. The IVC is normal in size and collapses >50% with inspiration. Pericardium There is no pericardial effusion. Other Information Quality : Fair Conclusion The cardiac chambers are normal in size. Mild concentric left ventricular hypertrophy. No regional wall motion abnormalities noted. Left ventricle systolic function is low-normal, estimated LVEF is 50-55%. Indeterminate diastolic function. Trace mitral regurgitation. Trace tricuspid regurgitation. PASP is normal. There is no pericardial effusion.
[2024-05-09] VITALS (78 sets, daily range): BP systolic 84–205; BP diastolic 40–94; PULSE 42–116; RESP 6–27; TEMP 97.4–98.4; O2SAT 93–100
[2024-05-09 03:48] LABS: ABG BASE EXCESS 8.1 mmol/L (-2.0-3.0); ABG HCO3 33.1 mmol/L (21.0-28.0); ABG OXYGEN SATURATION 97.3 % (94.0-98.0); ABG PCO2 47 mmHg (32-45); ABG PH 7.466 (7.350-7.450); PO2, ARTERIAL BG 90.9 mmHg (83.0-108.0); VENT MODE, BG ACVC (ROOM AIR)
[2024-05-09 04:06] LABS: HEMATOCRIT 36.8 % (36-48); MEAN CORPUSCULAR HGB CONC 30.2 g/dL (32.0-36.0); MEAN CORPUSCULAR VOLUME 92.9 fL (79-99); NUCLEATED RED BLOOD CELLS 1.1 % (0.0-0.19); RED BLOOD CELL COUNT(AUTO) 3.96 MIL/uL (4.00-5.50); WHITE BLOOD COUNT (AUTO) 4.7 K/uL (4.8-10.8)
[2024-05-09 04:44] LABS: ALBUMIN 2.4 g/dL (3.5-5.0); BILIRUBIN,TOTAL 1.1 mg/dL (0.2-1.0); CREATININE 2.6 mg/dL (0.5-1.0); POTASSIUM 4.9 mmol/L (3.5-5.1); TOTAL PROTEIN, SERUM 5.7 g/dL (6.0-8.3)
[2024-05-09 05:02] LABS: HIV 1&2 ANTIBODY Non-Reactive (Negative)
[2024-05-09 05:03] LABS: HIV-1 p24 Antigen Non-Reactive (Negative)
[2024-05-09] MEDS: levoTHYROxine VIAL 100MCG IV SCH (06:25)
[2024-05-09] MEDS: polyETHYLene GLYCol 3350 17 GM POWD.PACK PO SCH (08:45)
[2024-05-09] MEDS: PANTOPrazole 40 MG/VIAL IVP SCH (08:45)
[2024-05-09] MEDS: DOPamine HCL 400 MG/D5%-WATER 250 ML IV ONE (09:24)
[2024-05-09] MEDS ORDERED: DOPamine HCL 400 MG/D5%-WATER 250 ML IV PRN (09:30)
--- NOTE | 2024-05-09 09:39 | NUR ---
DR BIBI CHUNG, AT BEDSIDE, AND HR DROPPED TO 30'S. 12 LEAD EKG ADM. STARTED ON DOPAMINE. PT WOKE UP AND HR INCREASED TO 70'S. VERNA ONOFRE NP UPDATED.
--- NOTE | 2024-05-09 10:13 | PN ---
[facility] PROGRESS NOTE Date Patient Seen: May 09, 2024 Time of Visit: 10:13 Supervising Physician: David Adams MD Primary Care Physician: Attending team: [facility] hospitalist team. Outpatient Specialists: Inpatient Consults: [facility], critical Care team Nephrology PROBLEM LIST: Acute hypercarbic respiratory failure with hypoventilation syndrome POA requiring intubation in 05/08/24 Acute renal failure, POA Critically elevated hyperkalemia, POA Acute on chronic CHF with pulmonary edema POA Acute thrombocytopenia POA (suspect myelodysplastic syndrome) Hyperglycemia POA Hypothyroidism Hyperlipidemia POA Major depression disorder POA Generalized anxiety disorder POA Guillain Raymond syndrome with paraplegia, POA Dementia POA Morbidly obese POA INTERVAL HISTORY: [05/08/2024-patient was assessed in the emergency department, she is awake but confused GCS of 13 currently on BiPAP / with a FiO2 of 40% respiratory rate of 26 saturating 95% but ABGs worsening pH of 7.129 pCO2 of 103 PO2 of 79.9 and bicarb of 33.5. CBC similar to yesterday platelet count improved slightly 52958 today. Chemistry sodium was 146 potassium is 5.8 covered with Lokelma and 5 units of regular insulin IV push with half an amp of D50 BUN 39 creatinine 2.3 and GFR of 20 glucose 196 mg/dL total calcium 7.9 albumin 2.4 and total protein 5.9. Chest x-ray no pneumothorax or pleural effusion. Bilateral pulmonary vascular congestion noted with possible superimposed pneumonitis. CT of the head showed no acute intracranial bleed seen. Atrophy with white matter changes. Pending a 2D echo. Discussed goals of care with daughters and they requested full code including intubation at this time. Decision was made to intubate and both in agreement. 05/09/24- no major overnight events patient started on sedation vacation today following commands. Failed spontaneous breathing trials with pressure support of 10. We will try again tomorrow. She has been afebrile with a episodes of bradycardia in the 50s but hemodynamically stable heart rate earlier this morning in the 40s prior to sedation vacation while off sedation patient's heart rate increased to 70s and 80s blood pressure 162/71 with saturation 95% with FiO2 of 40% on the vent with settings of assist control volume control tidal volume 400 respiratory rate of 22 FiO2 of 60 and PEEP of 5. This morning ABGs was pH of 7.46 pCO2 of 47 PO2 of 90.9 bicarb of 97.3 attempted spontaneous breathing trials CO2 increased to 64 pH dropped to 7.33 and decided to put patient back on assist-control volume control previous settings. Respiratory culture growing Gram-positive cocci in chains and clusters. Patient has good urine output 3 L in the last 24 hours with a balance of-2.4 L. On laboratory WBCs 4.7 decreased from yesterday with 27 platelet count slightly decreased 67073 today. Chemistries sodium 146 carbon dioxide is 36 BUN of 48 creatinine of 2.6 and GFR of 17 glucose 155 mg/dL total calcium 8.2 CRP 67.2 any total protein 5.7 albumin 2.4 on chest x-ray bilateral pulmonary infiltrates are seen suggestive of pulmonary vascular congestion with possible superimposed Humira very minimal improvement ET tube above the taty approximately 3 cm. REVIEW OF SYSTEMS: Unable to obtain ROS from patient due to patient is somnolent. PHYSICAL EXAM: GENERAL: Critically ill, intubated on mechanical ventilation HEENT: Sclera non icteric, moist mucosa NECK: Supple, no JVD, trachea midline LUNGS: Diminished breath sounds bilaterally. No wheezes HEART: Regular rate and rhythm. Normal S1 and S2, without murmurs ABD: Abdomen soft, obese, nontender. Bowel sounds present EXT: No clubbing cyanosis or edema NEURO: Intubated on sedation vacation following commands. Vital Signs (last 8hr) Date Time Temp Pulse Resp B/P (MAP) Pulse Ox O2 Delivery O2 Flow Rate FiO2 05/09/24 09:03 40 05/09/24 09:01 46 60 05/09/24 07:33 99 Ventilator+ 60 05/09/24 06:47 48 18 110/48 98 Ventilator 60 05/09/24 06:21 52 22 05/09/24 06:17 52 20 108/48 98 Ventilator 60 05/09/24 06:12 49 60 05/09/24 05:47 54 23 123/63 100 Ventilator 60 05/09/24 05:21 61 22 122/59 100 Ventilator 60 05/09/24 04:47 48 22 112/52 Ventilator 60 05/09/24 04:29 50 60 05/09/24 04:17 98.2 49 6 111/48 99 Ventilator 60 05/09/24 04:00 100 Ventilator+ 60 05/09/24 03:47 55 17 121/52 100 Ventilator 60 05/09/24 03:33 63 21 119/46 100 Ventilator 60 05/09/24 02:47 51 22 124/59 97 Ventilator 60 05/09/24 02:31 42 26 05/09/24 02:17 47 22 113/53 96 Ventilator 60 LABS: Hematology Labs: Test 05/09/24 03:33 05/08/24 03:17 Range/Units White Blood Count 4.7 L 4.8-10.8 K/uL Red Blood Count 3.96 L 4.00-5.50 MIL/uL Hemoglobin 11.1 L 12.0-16.0 g/dL Hematocrit 36.8 36-48 % Mean Corpuscular Volume 92.9 79-99 fL Mean Corpuscular Hemoglobin 28.0 27.0-33.0 pg Mean Corpuscular Hemoglobin Concent 30.2 L 32.0-36.0 g/dL Red Cell Distribution Width 16.0 H 11.0-15.5 % Platelet Count 74 L 130-400 K/uL Mean Platelet Volume 11.0 H 7.5-10.5 fL Nucleated Red Blood Cells 1.1 H 0.0-0.19 % Erythrocyte Sedimentation Rate 50 H 0-30 MM/HR Immature Granulocyte % (Auto) 14.6 H 0-1 % Neutrophils (%) (Auto) 79.0 H 40.0-77.0 % Lymphocytes (%) (Auto) 4.5 L 21.0-51.0 % Monocytes (%) (Auto) 1.3 L 3.0-13.0 % Eosinophils (%) (Auto) 0.0 0.0-8.0 % Basophils (%) (Auto) 0.6 0.0-5.0 % Neutrophils # (Auto) 5.6 1.8-7.7 K/uL Lymphocytes # (Auto) 0.3 L 1.0-4.8 K/uL Monocytes # (Auto) 0.1 0.1-1.0 K/uL Eosinophils # (Auto) 0.00 0.00-0.70 K/uL Basophils # (Auto) 0.04 0.00-0.20 K/uL Absolute Immature Granulocyte (auto 1.03 H 0-1 K/uL Segmented Neutrophils % 83 H 40-70 % Band Neutrophils % 4 H 0-2 % Lymphocytes % (Manual) 6 L 22-44 % Monocytes % (Manual) 7 2-9 % Differential Comment MANUAL DIFFERENTIAL White Cell Morphology Comment Platelet Morphology Comment See comments Red Blood Cell Morphology See comments Chemistry Labs: Test 05/09/24 06:26 05/09/24 03:33 05/08/24 03:17 05/07/24 18:27 Range/Units Whole Blood Glucose 195 H 70-110 MG/DL Sodium Level 147 H 136-145 mmol/L Potassium Level 4.9 3.5-5.1 mmol/L Chloride Level 105 101-111 mmol/L Carbon Dioxide Level 36 H 21-32 mmol/L Blood Urea Nitrogen 42 H 7-18 mg/dL Creatinine 2.6 H 0.5-1.0 mg/dL Glomerular Filtration Rate Calc 17 >90 mL/min Random Glucose 199 #H 70-105 mg/dL Total Calcium 8.5 8.5-10.1 mg/dL Magnesium Level 2.00 1.80-2.40 mg/dL Ferritin 172 H 15-150 ng/mL Total Bilirubin 1.1 #H 0.2-1.0 mg/dL Aspartate Amino Transf (AST/SGOT) 25 10-37 U/L Alanine Aminotransferase (ALT/SGPT) 20 12-78 U/L Alkaline Phosphatase 75 50-136 U/L C-Reactive Protein, Quantitative 67.20 H 0.5-3.0 mg/L Total Protein 5.7 L 6.0-8.3 g/dL Albumin 2.4 L 3.5-5.0 g/dL Hemoglobin A1c 6.8 H 4.0-6.0 % Estimated Average Glucose (eAG) 148 H 70-126 mg/dL Troponin I High Sensitivity 18 4-50 ng/L B-Type Natriuretic Peptide 1010 H 0-100 pg/mL Lactic Acid Level 1.9 0.8-2.5 mmol/L Procalcitonin 0.60 H 0.05-0.5 ng/mL Coagulation Labs: Test 05/08/24 09:38 Range/Units Prothrombin Time 11.2 9.6-11.6 SEC Prothromb Time International Ratio 1.04 0.85-1.15 Activated Partial Thromboplast Time 28.5 26.3-35.5 SEC DIAGNOSTICS / RADIOLOGY RESULTS: IMAGING REPORT Signed PATIENT: TEMITOPE ROBBINS MR#: [id number] : 1935 SEX: F AGE: 88 LOCATION: 2CH ORDER [id number] STATUS: ADM IN REPORT#: [id number] SERVICE [id number] REASON: picc line placement ORDERING PHYSICIAN: VERNA ONOFRE PROCEDURE: CXR1VW - CHEST 1VW CHEST 1VW HISTORY: PICC line placement COMPARISON: Same day x-ray FINDINGS: A frontal projection of the chest was obtained. There are bilateral pulmonary infiltrates suggestive of pulmonary vascular congestion with possible superimposed pneumonitis. Right venous catheter is seen with distal tip in the plane of the superior vena cava. Endotracheal tube is seen with distal tip at 2.6 cm above taty. The study is limited due to poor positioning. The heart is borderline enlarged. All the lines and tubes are again seen in place. No evidence of aortic calcification is seen. IMPRESSION: 1. Bilateral pulmonary infiltrates are seen suggestive of pulmonary vascular congestion with possible superimposed pneumonitis. DICTATED BY: RAKEL WELSH MD DATE: 05/09/241539 ELECTRONICALLY SIGNED BY: RAKEL WELSH MD DATE: 05/09/241543 PLAN Continue ICU care Follow ABGs and adjust ventilator settings as needed. Albuterol and Atrovent nebulizer treatment scheduled. Continue antibiotic therapy: Zosyn add doxycycline for CAP coverage Consult Infectious Disease for septic shock Continue Lasix 40 mg IV daily. Follow Nephrology recommendations. Monitor electrolytes and cover accordingly. Monitor renal and liver function. Daily sedation vacation Daily spontaneous breathing trials GI and DVT prophylaxis. Patient is DNR and DNI. If patient meets criteria for extubation we will extubate but as per daughter's request they opted not to reintubate. NEURO: Minimize central acting medications as possible. Fall Precautions. Well lighted room through the day and minimize interruptions through the night to prevent acute delirium. CT of the head rule out intracranial bleed due to altered mental status PULMONARY: Supplemental 02 as needed Titrate Fio2 to keep Spo2 > or = 90% DuoNebs and CPT as needed IS hourly while awake for pulmonary hygiene Out of bed to chair as tolerated VAP Bundle Ventilator settings assist control volume control tidal volume 400 respiratory rate of 22 FiO2 of 60% and PEEP of 5. Monitor chest x-ray Duo nebs as needed Solu-Medrol 40 mg IV push b.i.d. CARDIOVASCULAR: Follow hemodynamics. Titrate vasopressor to keep MAP >65 or systolic blood pressure >95mmHg ICU vital signs Telemetry monitoring 2D echo pending GI & NUTRITION: Continue nutritional support Aspirations precautions Prokinetic agents and laxatives as needed NG tube Tube feedings Dietary consult for recommendations MiraLax daily for bowel regimen KIDNEYS & ELECTROLYTES: Strict monitoring of intake and output Daily weights Avoid nephrotoxic agents Monitor electrolytes and replace as needed Goal urine output of 30mL/hr or 0.5mL/kg/hr Follow nephrology recommendation Monitor electrolytes closely and correct accordingly Lokelma 10 mg 3 times a day then 10 mg daily ENDOCRINE: Maintain blood glucose between 100-180 at all times. Insulin sliding scale for blood glucose management Lantus for long-acting insulin Insulin sliding scale q.6 hours Hypoglycemia protocol p.r.n. INFECTIOUS DISEASE: Trend temperature. Velazco-culture if febrile. influenza- covid- strep abx: zosyn and doxy HEMATOLOGY & COAGULATION: Monitor H&H. Keep Hgb > 7 Transfuse 1 unit of PRBC for Hgb < 7 Transfuse 1 pack of platelets of platelets < 20, 000 Watch for any signs and symptoms of bleeding monitor platelets and for bleeding autoimmune work up SKIN: Pressure ulcer prevention per facility protocol turn q2 hrs per facilty protocol Rehab: PT/OT Code Status: Full Resuscitation Disposition: [Admit to ICU] Other: Total patient critical care time exceeds 45 minutes excluding all procedures. VERNA ONOFRE [facility] May 09, 2024 10:13
--- NOTE | 2024-05-09 10:19 | CONS ---
REFERRING PHYSICIAN: Patrice Keyes MD. REASON FOR CONSULTATION: Renal failure. HISTORY OF PRESENT ILLNESS: An 88-year-old female who had previously been with hospice. The patient presented to the hospital with increasing shortness of breath and orthopnea. The patient with a history of known dementia. She has a history of sleep apnea. The family withdrew hospice care. In the Emergency Room, the patient intubated and brought to the ICU. The patient was noted to have significant renal dysfunction with an elevated BUN and creatinine; and the patient is being seen in consultation for all the above. I did discuss the case in detail with the patient's family. PAST MEDICAL HISTORY: Sleep apnea, hypertension, thyroid disease, dementia. SURGICAL HISTORY: Cholecystectomy, appendectomy. SOCIAL HISTORY: There is no active tobacco use. FAMILY HISTORY: Positive for renal dysfunction. ALLERGIES: There are no allergies. MEDICATIONS: Noted. REVIEW OF SYSTEMS: She is intubated in the ICU. OBJECTIVE: VITAL SIGNS: Blood pressure is 110/48, pulse in the 40s. She is afebrile. GENERAL: She is a critically ill female, lying in bed in the ICU. HEENT: Head is atraumatic. Pupils equal, roving to light. Oropharynx: ET tubes in place. NECK: Supple. There is no JVP. CARDIOVASCULAR: Regular. There is no S3, S4 gallop. LUNGS: Coarse with equal thoracic movement. ABDOMEN: Soft, nondistended, nontender. EXTREMITIES: No clubbing, no cyanosis. NEUROLOGIC: She is sedated on the vent. LABORATORY DATA: Hemoglobin 11, hematocrit 36, white cell count 4000. Sodium 147. BUN 42, creatinine is 2.6. Albumin is 2.4. Echocardiogram is noted with diastolic heart failure. Chest x-ray is also noted. IMPRESSION: 1. Acute renal failure. 2. Respiratory distress. 3. Bradycardia. 4. Electrolyte abnormalities. PLAN: The patient now with significant bradycardia. The patient will be started on dopamine while we await Cardiology evaluation. We will obtain an EKG for completeness. The patient would not be a candidate for any form of renal replacement therapy at this time. The patient previously had been with hospice. I did discuss with the patient's family. Family now wishing for DNR status. We will continue to follow closely. The patient's overall prognosis is quite poor and I did discuss that in detail with the family. TID: [id number] RECEIPT: [id number]
--- NOTE | 2024-05-09 10:27 | NUR ---
DCP: Myraing Todd spoke with daughter Purvi Mitchell [phone]. Per daughter who was very emotional, "mom is in her last days", "I am gonna miss her." Daughter states they are making her DNR. Per daughter, pt was on [facility] but they revoked to bring here. "We needed the extra help, but it was a big mistake, because we did not know she was so sick" Prior to admission, daughter states pt was able to walk using walker but needed standby assistance with ADLS. Daughter was provider 40hrs a week thru [facility]. Family transported pt as needed. Family gathering and per Marzena, plan is to try and extubate. Possible hospice. Addendum: 05/09/24 at 1028 by NAS TRONCOSO Amended: Links added.
[2024-05-09] MEDS ORDERED: NYSTatin 30 GM CREAM TP PRN (10:30)
[2024-05-09] MEDS ORDERED: TIMOLOL MALEATE 0.25% 5 ML BOTTLE OD SCH (10:30)
--- NOTE | 2024-05-09 10:52 | EKG ---
[facility] Test Date: 2024-05-09 Test Time: 09:36:02 Pat Name: TEMITOPE ROBBINS Department: [facility] Room: 217 1 Gender: F Engineering Drafter: IMTIAZ : 1935 Requested By: BIBI CHUNG Order Number: [id number] Reading MD: Angel Calles Measurements Intervals Drayden Rate: 59 P: 60 OH: 182 QRS: 53 QRSD: 122 T: -17 QT: 510 QTc: 504 Interpretive Statements Sinus bradycardia with premature atrial complexes with aberrant conduction Right bundle branch block T Wave Flattening Compared to ECG 05/07/2024 17:45:41 Atrial premature complex(es) now present Aberrant conduction of supraventricular beat(s) now present Sinus rhythm no longer present Ventricular premature complex(es) no longer present T-wave abnormality no longer present Electronically Signed On 05-11-2024 17:35:03 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
[2024-05-09] MEDS ORDERED: LEVOTHYROXINE PO SCH (11:30)
--- NOTE | 2024-05-09 11:56 | HMCIMG ---
CHEST 1VW HISTORY: Respiratory failure COMPARISON: 05/08/2024 FINDINGS: A frontal projection of the chest was obtained. Mild bilateral pulmonary infiltrates are seen may be related to mild pulmonary vascular congestion with possible superimposed pneumonitis. The heart is borderline enlarged. All the lines and tubes are again seen in place. Aortic calcifications are seen. IMPRESSION: 1. Mild bilateral pulmonary infiltrates are seen may be related to mild pulmonary vascular congestion with possible superimposed pneumonitis.
--- NOTE | 2024-05-09 12:04 | PN ---
[facility] PROGRESS NOTE Date of Service: May 09, 2024 Time of Service: 12:01 SUBJECTIVE: [ ] The patient has been seen and examined today during my rounding, currently intubated, on mechanical ventilation, BP 115/70, afebrile, saturating 100% on mechanical ventilation. CBC shows hemoglobin 12.3, hematocrit 42.6, ABG earlier this morning with a pH of 7.12, pCO2 103. Bicarb of 33.5. Chest x-ray showing ET tube with distal tip at 2.8 cm above the taty. 05/09 the patient has been seen and examined today during my rounding, remains in the ICU, intubated, on mechanical ventilation, she is off dopamine, off sedation. Blood pressure 110/48, heart rate of 48, saturating 98%, on ventilator, FiO2 60%. CBC with a hemoglobin 11.1, hematocrit 36.8, platelet count of 74. Results of ABG reviewed, pH 7.46, PO2 90.9, pCO2 47. Chest x-ray shows mild bilateral pulmonary infiltrates maybe related to mild pulmonary vascular congestion with possible superimposed pneumonitis. REVIEW OF SYSTEMS CONSTITUTIONAL: Denies fevers, chills, or night sweats. No unintentional weight loss reported. NEUROLOGICAL: Denies headache, amaurosis fugax, motor weakness, sensory deficit, vertigo/spinning sensation, gait abnormalities, or tremors. ENT: No hearing loss, otalgia, otorrhea, rhinitis, rhinorrhea, hoarseness, or sore throat. CARDIOVASCULAR: Denies any exertional angina, dyspnea on exertion, orthopnea, paroxysmal nocturnal dyspnea, palpitations, life-threatening arrhythmias, claudication. PULMONARY: Denies any shortness of breath, cough, phlegm/sputum, hemoptysis, pleuritic chest pain. SLEEP: Denies morning headaches, daytime somnolence or napping. Denies difficulty falling asleep, staying asleep, waking from sleep. Denies knowledge of snoring. GASTROINTESTINAL: Denies any type of dysphagia to either liquids or solids. Denies nausea, vomiting, pyrosis, early satiety, abdominal pain, diarrhea, constipation, or changes in stool consistency or caliber. Denies coffee-ground emesis, hematemesis, hematochezia, or melanotic stools. GENITOURINARY: Denies frequency, urgency, nocturia, hematuria or incontinence (Storage/Irritative symptoms.) Low urinary stream, straining to void, urinary intermittency or hesitancy, splitting of the voiding stream, terminal dribbling. ENDOCRINOLOGIC: Denies polyuria, polydipsia, polyphagia or heat/cold intolerances. HEMATOLOGIC: Denies thrombophilia/previous clots, or coagulopathy/bleeding disorders. ONCOLOGIC: Denies personal history of malignancy. DERMATOLOGIC: Denies rashes or pruritus. PSYCHIATRIC: Denies any suicidal or homicidal ideation. Denies hallucinations. PHYSICAL EXAM GENERAL APPEARANCE: Patient is intubated, on mechanical ventilation, ET tube in place. Off sedation. NEUROLOGICAL: Cranial nerves II-XII grossly intact. Motor is 5/5 in bilateral upper and lower extremities proximal to distal. No sensory deficits. HEENT: Face is symmetric. Pupils are equal and reactive. Extraocular movements are intact. NECK: Supple. No JVD. No thyromegaly. No submental, submandibular, pre-/postauricular, occipital or supraclavicular lymphadenopathy. CHEST: Normal chest expansion. No Telemetry. LUNGS: Absence of any rales, rhonchi or any wheezing. CARDIOVASCULAR: Regular. S1 and S2 normal. No appreciable rubs, murmurs or gallops. ABDOMEN: Soft, nontender, and nondistended. There is no rebound, voluntary guarding, or rigidity. : Deferred. No Marley. EXTREMITIES: Non-edematous and not cyanotic. No clubbing. Good capillary refill. SKIN: No skin breakdown. Vital Signs (last 8hr) Date Time Temp Pulse Resp B/P (MAP) Pulse Ox O2 Delivery O2 Flow Rate FiO2 05/09/24 10:26 71 22 05/09/24 10:22 62 40 05/09/24 09:03 40 05/09/24 09:01 46 60 05/09/24 07:33 99 Ventilator+ 60 05/09/24 06:47 48 18 110/48 98 Ventilator 60 05/09/24 06:21 52 22 05/09/24 06:17 52 20 108/48 98 Ventilator 60 05/09/24 06:12 49 60 05/09/24 05:47 54 23 123/63 100 Ventilator 60 05/09/24 05:21 61 22 122/59 100 Ventilator 60 05/09/24 04:47 48 22 112/52 Ventilator 60 05/09/24 04:29 50 60 05/09/24 04:17 98.2 49 6 111/48 99 Ventilator 60 LABS: Laboratory: Test 05/09/24 06:26 05/09/24 03:47 05/09/24 03:33 05/08/24 09:38 Range/Units Whole Blood Glucose 195 H 70-110 MG/DL Blood Gas Specimen Type Arterial Arterial Blood pH 7.466 H 7.350-7.450 Arterial Blood Partial Pressure CO2 47 H 32-45 mmHg Arterial Blood Partial Pressure O2 90.9 83.0-108.0 mmHg Arterial Blood HCO3 33.1 H 21.0-28.0 mmol/L Arterial Blood Oxygen Saturation 97.3 94.0-98.0 % Arterial Blood Base Excess 8.1 H -2.0-3.0 mmol/L Blood Gas Temperature 37.0 35.5-37.0 CELSIUS Blood Gas Respiration Rate 22.0 min. Blood Gas Vent Mode ACVC ROOM AIR FiO2 60.0 % Blood Gas Tidal Volume 400 ml Blood Gas PEEP 5 cm H2O Blood Gas Specimen Comment CARMELO RN ,RR White Blood Count 4.7 L 4.8-10.8 K/uL Red Blood Count 3.96 L 4.00-5.50 MIL/uL Hemoglobin 11.1 L 12.0-16.0 g/dL Hematocrit 36.8 36-48 % Mean Corpuscular Volume 92.9 79-99 fL Mean Corpuscular Hemoglobin 28.0 27.0-33.0 pg Mean Corpuscular Hemoglobin Concent 30.2 L 32.0-36.0 g/dL Red Cell Distribution Width 16.0 H 11.0-15.5 % Platelet Count 74 L 130-400 K/uL Mean Platelet Volume 11.0 H 7.5-10.5 fL Nucleated Red Blood Cells 1.1 H 0.0-0.19 % Erythrocyte Sedimentation Rate 50 H 0-30 MM/HR Sodium Level 147 H 136-145 mmol/L Potassium Level 4.9 3.5-5.1 mmol/L Chloride Level 105 101-111 mmol/L Carbon Dioxide Level 36 H 21-32 mmol/L Blood Urea Nitrogen 42 H 7-18 mg/dL Creatinine 2.6 H 0.5-1.0 mg/dL Glomerular Filtration Rate Calc 17 >90 mL/min Random Glucose 199 #H 70-105 mg/dL Total Calcium 8.5 8.5-10.1 mg/dL Magnesium Level 2.00 1.80-2.40 mg/dL Ferritin 172 H 15-150 ng/mL Total Bilirubin 1.1 #H 0.2-1.0 mg/dL Aspartate Amino Transf (AST/SGOT) 25 10-37 U/L Alanine Aminotransferase (ALT/SGPT) 20 12-78 U/L Alkaline Phosphatase 75 50-136 U/L C-Reactive Protein, Quantitative 67.20 H 0.5-3.0 mg/L Total Protein 5.7 L 6.0-8.3 g/dL Albumin 2.4 L 3.5-5.0 g/dL HIV (1&2) Antibody Non-Reactive Negative HIV P24 Antigen, Qualitative Non-Reactive Negative Prothrombin Time 11.2 9.6-11.6 SEC Prothromb Time International Ratio 1.04 0.85-1.15 Activated Partial Thromboplast Time 28.5 26.3-35.5 SEC Test 05/08/24 08:37 05/08/24 03:17 05/07/24 20:16 05/07/24 19:00 Range/Units Hemoglobin (Blood Gas) 13.0 12.0-16.0 g/dL Sodium (Blood Gas) 139 136-145 MMOL/L Bedside Potassium (Blood Gas) 6.1 *H 3.4-4.5 MMOL/L Bedside Chloride (Blood Gas) 98 98-107 MMOL/L Bedside Glucose (Blood Gas) 218 H 65-95 MG/DL Bedside Ionized Calcium (Blood Gas) 1.22 1.15-1.33 MMOL/L Bedside Lactic Acid (Blood Gas) 2.16 H 0.36-0.75 MMOL/L Immature Granulocyte % (Auto) 14.6 H 0-1 % Neutrophils (%) (Auto) 79.0 H 40.0-77.0 % Lymphocytes (%) (Auto) 4.5 L 21.0-51.0 % Monocytes (%) (Auto) 1.3 L 3.0-13.0 % Eosinophils (%) (Auto) 0.0 0.0-8.0 % Basophils (%) (Auto) 0.6 0.0-5.0 % Neutrophils # (Auto) 5.6 1.8-7.7 K/uL Lymphocytes # (Auto) 0.3 L 1.0-4.8 K/uL Monocytes # (Auto) 0.1 0.1-1.0 K/uL Eosinophils # (Auto) 0.00 0.00-0.70 K/uL Basophils # (Auto) 0.04 0.00-0.20 K/uL Absolute Immature Granulocyte (auto 1.03 H 0-1 K/uL Segmented Neutrophils % 83 H 40-70 % Band Neutrophils % 4 H 0-2 % Lymphocytes % (Manual) 6 L 22-44 % Monocytes % (Manual) 7 2-9 % Differential Comment MANUAL DIFFERENTIAL White Cell Morphology Comment Platelet Morphology Comment See comments Red Blood Cell Morphology See comments Hemoglobin A1c 6.8 H 4.0-6.0 % Estimated Average Glucose (eAG) 148 H 70-126 mg/dL Troponin I High Sensitivity 18 4-50 ng/L B-Type Natriuretic Peptide 1010 H 0-100 pg/mL Urine Color YELLOW YELLOW Urine Appearance CLEAR CLEAR Urine pH 5.0 5.0-8.0 Urine Specific [place] 1.015 1.001-1.031 Urine Protein 30 H NEGATIVE mg/dL Urine Glucose (UA) NEGATIVE NEGATIVE mg/dL Urine Ketones NEGATIVE NEGATIVE mg/dL Urine Occult Blood SMALL H NEGATIVE Urine Nitrate NEGATIVE NEGATIVE Urine Bilirubin NEGATIVE NEGATIVE mg/dL Urine Urobilinogen 0.2 0.2-1.0 mg/dL Urine Leukocyte Esterase NEGATIVE NEGATIVE Alea/uL Urine RBC 2-5 H 0-1 /HPF Urine WBC 2-5 H 0-1 /HPF Urine Squamous Epithelial Cells RARE 0-2 /HPF Urine Bacteria RARE None Seen /HPF Urine Other Casts 3 None Seen /LPF Influenza Type A Antigen Negative For Type A NEGATIVE Influenza Type B Antigen Negative For Type B NEGATIVE SARS-CoV-2, RNA, NAAT NEGATIVE SARS CoV-2 NEGATIVE Test 05/07/24 18:35 05/07/24 18:27 Range/Units Blood Gas Flow-by 12.00 0.00-15.00 L/min Lactic Acid Level 1.9 0.8-2.5 mmol/L Procalcitonin 0.60 H 0.05-0.5 ng/mL Current Medications Medications (Trade) Dose Ordered Sig/Jessenia Route PRN Reason Start Time Stop Time Status Last Admin Dose Admin Albuterol (DUOneb) 1 udvial [id number] 05/08/24 02:00 14/25 01:59 05/09/24 10:25 1 UDVIAL Albuterol Sulfate (Proventil 0.083% 2.5mg/3ml) 10 mg ONCE IH 05/07/24 19:30 05/08/24 07:02 DC 05/07/24 20:32 10 MG Albuterol Sulfate (Proventil 0.083% 2.5mg/3ml) 10 mg ONCE IH 05/08/24 04:00 05/08/24 07:02 DC Artificial Tears (Artificial Tears) 1 DROP OR AD Q4H4 OU 05/08/24 12:00 06/07/24 11:59 05/09/24 11:59 1 DROP Atorvastatin Calcium (LIPItor 10MG) 5 mg HS PO 05/09/24 21:00 06/08/24 20:59 Chlorhexidine Gluconate (Peridex) 15 ml Q8H MM 05/08/24 11:00 05/22/24 10:59 05/09/24 11:59 15 ML Dopamine HCl/ Dextrose 250 ml @ 0 mls/hr PROTOCOL PRN IV sb 05/09/24 09:30 06/08/24 09:29 Doxycycline Hyclate 250 ml @ 125 mls/hr Q12H IV 05/08/24 11:00 05/18/24 10:59 05/09/24 11:59 125 MLS/HR Fentanyl Citrate 100 ml @ 2.5 mls/hr PROTOCOL IV 05/08/24 11:00 05/08/24 10:56 DC Fentanyl Citrate 100 ml @ 0 mls/hr PROTOCOL IV 05/08/24 11:00 05/08/24 15:45 DC 05/08/24 10:56 2.5 MLS/HR Fentanyl/Sodium Chloride 250 ml @ 0 mls/hr PROTOCOL IV 05/08/24 16:00 05/13/24 15:59 05/08/24 19:29 25 MLS/HR Furosemide (LASix 40MG TAB) 40 mg QODAY PO 05/11/24 09:00 05/09/24 10:23 DC Furosemide (LASix 40MG VIAL) 40 mg Q12H IV 05/08/24 09:30 06/07/24 09:29 05/09/24 08:45 40 MG Home Med (Home Medication) DAILY PO 05/10/24 09:00 06/09/24 08:59 Home Med (Home Medication) LEVOTHYROXINE 37.5 MCG 1 CAP D PO 05/09/24 11:30 06/08/24 11:29 Home Med (Home Medication) Levocetirizine Dihydrochloride 2.5 MG HS PO 05/09/24 21:00 06/08/24 20:59 Insulin Glargine (LANtus 100 UNITS/ML 10 ML VIAL) 15 units BID@0730,2100 SQ 05/08/24 21:00 06/07/24 20:59 05/09/24 06:44 15 UNITS Insulin Human Regular (humuLIN R 100 UNIT/ML 3ML) INSULIN SLIDING SCAL... Q6H6 SQ 05/08/24 18:00 06/07/24 17:59 05/09/24 06:42 6 UNIT Latanoprost (Xalatan) DAILY OP 05/10/24 09:00 06/09/24 08:59 Levothyroxine Sodium (SYNTHroid VIAL 100MCG) 75 mcg DAILY@0630 IV 05/09/24 06:30 06/08/24 06:29 05/09/24 06:25 75 MCG Melatonin (Melatonin) 5 mg HS PO 05/09/24 21:00 06/08/24 20:59 Methylprednisolone Sodium Succinate (Solu-medROL 40MG) 40 mg BID IVP 05/08/24 21:00 06/07/24 20:59 05/09/24 08:45 40 MG Midazolam HCl 50 ml @ 0 mls/hr PROTOCOL IV 05/08/24 11:00 05/15/24 10:59 05/08/24 19:59 5 MLS/HR Midazolam HCl 50 mg/Sodium Chloride 50 ml @ 0 mls/hr PROTOCOL IV 05/08/24 11:00 05/08/24 10:57 DC Nystatin (MycoSTATin 30 GM CREAM) 1 APPL TIDP PRN TP RASH 05/09/24 10:30 06/08/24 10:29 Pantoprazole Sodium (PROTonix 40MG INJ) 40 mg DAILY IVP 05/09/24 09:00 06/08/24 08:59 05/09/24 08:45 40 MG Piperacillin Sod/ Tazobactam Sod 50 ml @ 12.5 mls/hr Q12H IV 05/08/24 05:00 05/18/24 04:59 05/09/24 06:25 12.5 MLS/HR Polyethylene Glycol (MIRalax 3350 17 GM POWD.PACK) 17 gm DAILY PO 05/09/24 09:00 06/08/24 08:59 05/09/24 08:45 17 GM Sodium Polystyrene Sulfonate (kayEXALate 15 GM/60 ML) 15 gm Q2H PO 05/08/24 04:00 05/08/24 06:01 DC 05/08/24 06:10 15 GM Sodium Zirconium Cyclosilicate (Lokelma 10gm Powder) 10 gm TID PO 05/08/24 21:00 05/09/24 20:59 05/09/24 08:45 10 GM Timolol Maleate (Timoptic) 1 GGT OD AD JESSENIA AD OD 05/09/24 10:30 06/08/24 10:29 DIAGNOSTICS / RADIOLOGY: [ ] CHEST 1VW HISTORY: Respiratory failure COMPARISON: 05/08/2024 FINDINGS: A frontal projection of the chest was obtained. Mild bilateral pulmonary infiltrates are seen may be related to mild pulmonary vascular congestion with possible superimposed pneumonitis. The heart is borderline enlarged. All the lines and tubes are again seen in place. Aortic calcifications are seen. IMPRESSION: 1. Mild bilateral pulmonary infiltrates are seen may be related to mild pulmonary vascular congestion with possible superimposed pneumonitis. ASSESSMENT: Acute hypercarbic respiratory failure with hypoventilation syndrome POA Acute renal failure POA Acute on chronic CHF with pulmonary edema POA Hyperkalemia POA Acute thrombocytopenia POA Hyperglycemia POA Hypothyroidism Hyperlipidemia POA Major Depression disorder POA Generalized Anxiety disorder POA Guillain Laurel syndrome with paraphlegia Dementia POA Morbidly obese POA PLAN: Patient remains admitted to the ICU Patient remains intubated on mechanical ventilation Critical care consultation requested, input noted and appreciated Off sedation, monitor mental status Continue broad-spectrum IV antibiotics Follow results of septic workup Echocardiogram LVEF 50-55% CT head without contrast no acute intracranial bleed, atrophy with white matter changes Replace electrolytes IV per protocol A.m. labs GI DVT prophylaxis Disposition: Remains admitted to the ICU, currently intubated, on mechanical ventilation, off sedation, weaning trial in progress, continue to follow cri tical care input and recommendation. Family at bedside, updated, all questions answered. Prognosis remains guarded Total ICU time spent greater than 30 minutes RADHA WHITTINGTON MD May 09, 2024 12:04
[2024-05-09 12:17] LABS: ABG HCO3 33.6 mmol/L (21.0-28.0); ABG OXYGEN SATURATION 95.6 % (94.0-98.0); ABG PCO2 64 mmHg (32-45); ABG PH 7.339 (7.350-7.450); CARBON MONOXIDE 0.8 % (0.5-1.5); CPAP, BG 5 cm H2O; DEVICE COMMENT RR ROSIE, RN; HHb 4.4; PO2, ARTERIAL BG 85.6 mmHg (83.0-108.0); VENT MODE, BG CPAP PS 10 (ROOM AIR)
[2024-05-09] MEDS: proPOFol 1000 MG/100 ML IV PRN (13:29)
--- NOTE | 2024-05-09 14:45 | NUR ---
Nutritional Note: Chart, meds, and labs Reviewed. Nepro @20m/hr provides 480kcal, 20gm pro /day Recommend: -increase TF rate to 35ml/hr with H20 flush as per MD. -reassess tolerance and labs 72hrs -discuss with family to align nutritional goals with comfort-focused care if hospice reinstated. - Electrolyte replacements per protocol -Monitor fluid overload, respiratory status, and tolerance to feeding. -If No BM >3days consider bowel stimulant. - Please notify RD if additional nutrition concerns arise. SEE RD Nutritional Assessment for additional assessment information. Addendum: 05/09/24 at [address] MU[address]OZ RD Amended: Links added.
--- NOTE | 2024-05-09 15:00 | NUR ---
VAGINAL BLEEDING NOTED. VERNA ONOFRE MADE AWARE. FAMILY STATES IT HAS BEEN HAPPENING FOR ABOUT A YEAR AND HAS NOT SEEN DOCTOR ABOUT THE BLEEDING. WILL REFER TO PRIMARY DR MOTA IN AM.
--- NOTE | 2024-05-09 15:44 | HMCIMG ---
CHEST 1VW HISTORY: PICC line placement COMPARISON: Same day x-ray FINDINGS: A frontal projection of the chest was obtained. There are bilateral pulmonary infiltrates suggestive of pulmonary vascular congestion with possible superimposed pneumonitis. Right venous catheter is seen with distal tip in the plane of the superior vena cava. Endotracheal tube is seen with distal tip at 2.6 cm above taty. The study is limited due to poor positioning. The heart is borderline enlarged. All the lines and tubes are again seen in place. No evidence of aortic calcification is seen. IMPRESSION: 1. Bilateral pulmonary infiltrates are seen suggestive of pulmonary vascular congestion with possible superimposed pneumonitis.
[2024-05-09 15:46] LABS: HEPATITIS A IGM ANTIBODY Non-Reactive (Nonreactive); HEPATITIS B CORE IGM ANTIBODY Non-Reactive (Negative); HEPATITIS B SURFACE ANTIGEN Non-Reactive (Nonreactive); HEPATITIS C ANTIBODY Non-Reactive (Nonreactive)
[2024-05-09 16:02] LABS: CREATININE 2.6 mg/dL (0.5-1.0); POTASSIUM 4.5 mmol/L (3.5-5.1)
--- NOTE | 2024-05-09 17:09 | NUR ---
SPEECH TRIGGER COMPLETED (INTUBATION). Pt IS AN 88 Y.O. FEMALE ADMITTED SECONDARY TO ACUTE HYPERCARBIC RESPIRATORY FAILURE. Pt HAS A PAST MEDICAL HISTORY SIGNIFICANT FOR ASTHMA, COPD, CHF, HYPERTENSION, HYPERLIPIDEMIA, HYPOTHYROIDISM, MORBID OBESITY, DEMENTIA, YUSEF, GENERALIZED ANXIETY DISORDER, GBS WITH PARAPLEGIA, MAJOR DEPRESSIVE DISORDER, CHRONIC RESPIRATORY FAILURE AND CHRONIC KIDNEY INSUFFICIENCY. Pt CURRENTLY INTUBATED AND NPO. PLEASE REQUEST [employer]ECH [employer] FOR BEDSIDE SWALLOW EVALUATION 24 HOURS POST EXTUBATION IF ANY S/S OF ASPIRATION ARISE WITH ORAL INTAKE. TOUR BUS DRIVER/GUIDE COORDINATED WITH NURSE COELLO. ALL QUESTIONS ANSWERED AT THIS TIME. Addendum: 05/09/[address] [facility]TH[facility] Amended: Links added.
[2024-05-09] MEDS: LEVOCETIRIZINE DIHYDROCHLORIDE 2.5 MG PO SCH (21:00)
[2024-05-09] MEDS: atorVAStatin 10 MG TABLET PO SCH (21:05)
[2024-05-09] MEDS: MELATONIN 5 MG TABLET PO SCH (21:05)
[2024-05-10] VITALS (112 sets, daily range): BP systolic 88–160; BP diastolic 46–93; PULSE 53–104; RESP 11–23; TEMP 97–98.6; O2SAT 92–100
[2024-05-10 03:31] LABS: ABG BASE EXCESS 6.8 mmol/L (-2.0-3.0); ABG OXYGEN SATURATION 92.8 % (94.0-98.0); ABG PCO2 33 mmHg (32-45); ABG PH 7.559 (7.350-7.450); CARBON MONOXIDE 0.8 % (0.5-1.5); DEVICE COMMENT LR RN YVONNE; HHb 7.1; PO2, ARTERIAL BG 60.3 mmHg (83.0-108.0); VENT MODE, BG ACVC (ROOM AIR)
[2024-05-10 04:34] LABS: BASOPHILS # (AUTO) 0.01 K/uL (0.00-0.20); BASOPHILS % (AUTO) 0.3 % (0.0-5.0); HEMATOCRIT 36.9 % (36-48); IMMATURE GRANULOCYTE ABSOLUTE 0.34 K/uL (0-1); LYMPHOCYTES # (AUTO) 0.6 K/uL (1.0-4.8); MEAN CORPUSCULAR HGB CONC 32.2 g/dL (32.0-36.0); MEAN CORPUSCULAR VOLUME 86.8 fL (79-99); MONOCYTES # (AUTO) 0.1 K/uL (0.1-1.0); MONOCYTES % (AUTO) 2.9 % (3.0-13.0); NEUTROPHILS # (AUTO) 2.7 K/uL (1.8-7.7); NEUTROPHILS % (AUTO) 72.7 % (40.0-77.0); PLATELET COUNT (AUTO) 86 K/uL (130-400); RED BLOOD CELL COUNT(AUTO) 4.25 MIL/uL (4.00-5.50); RED CELL DISTRIBUTION WIDTH 16.4 % (11.0-15.5); WHITE BLOOD COUNT (AUTO) 3.7 K/uL (4.8-10.8)
[2024-05-10 05:29] LABS: ALBUMIN 2.5 g/dL (3.5-5.0); CREATININE 2.5 mg/dL (0.5-1.0); POTASSIUM 3.6 mmol/L (3.5-5.1); THYROID STIMULATING HORMONE 0.39 uIU/mL (0.36-3.74)
[2024-05-10] MEDS: CHOLECALCIFEROL PO SCH (08:03)
[2024-05-10] MEDS ORDERED: LATANOPROST 2.5 ML DROPS OP SCH (09:00)
[2024-05-10] MEDS ORDERED: COMPOUND IV MISC 1 EACH IVSOLN MISC PRN (09:00)
[2024-05-10] MEDS ORDERED: COMPOUND IV REFRIGERATED 1 EACH IVSOLN MISC PRN (09:00)
[2024-05-10] MEDS: LATANOPROST 2.5 ML DROPS OP SCH (09:25)
--- NOTE | 2024-05-10 09:46 | HMCIMG ---
FRONTAL CHEST RADIOGRAPH INDICATION: intubated COMPARISON: 05/09/2024 FINDINGS/IMPRESSION: retail advertising sales manager leads overlie the field of view. Stable endotracheal tube, NG tube, and right PICC. Stable heart size and mild left greater than right-sided pulmonary vascular congestion. Unchanged bilateral perihilar atelectasis and right infrahilar consolidation, without pneumothorax.
--- NOTE | 2024-05-10 09:58 | PN ---
NEPHROLOGY PROGRESS NOTE Date/Time Patient Seen: May 10, 2024 SUBJECTIVE: This is an 88-year-old female who had previously been with hospice. The patient presented to the hospital with increasing shortness of breath and orthopnea. The patient with a history of known dementia. She has a history of sleep apnea. The family withdrew hospice care. In the Emergency Room, the patient intubated and brought to the ICU. The patient was noted to have significant renal dysfunction with an elevated BUN and creatinine The patient now with significant bradycardia. Dopamine has been discontinued Vasopressors have been discontinued She continues to be intubated Tolerating Nepro via OGT. The patient would not be a candidate for any form of renal replacement therapy at this time. Family now wishing for DNR status. REVIEW OF SYSTEMS: Difficult to obtain given status of the patient who remains intubated mechanical ly ventilated Vital Signs (last 8hr) Date Time Temp Pulse Resp B/P (MAP) Pulse Ox O2 Delivery O2 Flow Rate FiO2 05/10/24 08:45 71 22 143/70 (94) 96 05/10/24 08:30 67 22 138/60 (86) 96 05/10/24 08:30 67 22 138/60 (86) 96 60 05/10/24 08:15 71 22 142/65 (90) 96 05/10/24 08:15 71 22 142/65 (90) 96 60 05/10/24 08:00 97.7 05/10/24 08:00 63 22 144/52 (82) 96 60 05/10/24 08:00 94 Ventilator+ 60 05/10/24 08:00 63 22 144/52 (82) 96 05/10/24 07:45 70 22 153/73 (99) 96 05/10/24 07:45 70 22 153/73 (99) 96 60 05/10/24 07:30 66 22 147/65 (92) 95 60 05/10/24 07:15 69 23 150/69 (96) 96 60 05/10/24 07:00 67 22 150/69 (96) 96 60 05/10/24 07:00 67 22 146/72 (96) 96 60 05/10/24 06:45 67 22 146/72 (96) 96 60 05/10/24 06:31 74 22 05/10/24 06:30 68 22 140/65 (90) 96 60 05/10/24 06:27 74 60 05/10/24 06:15 71 23 145/61 (89) 96 60 05/10/24 06:00 75 22 146/66 (92) 97 60 05/10/24 05:45 85 22 141/76 (97) 96 60 05/10/24 05:30 80 22 138/68 (91) 96 60 05/10/24 05:15 79 23 134/63 (86) 96 60 05/10/24 05:00 77 22 130/65 (86) 99 60 05/10/24 04:45 70 22 154/66 (95) 60 05/10/24 04:30 69 23 160/74 (102) 60 05/10/24 04:15 71 22 141/50 (80) 94 60 05/10/24 04:00 98.6 70 22 136/62 (86) 94 60 05/10/24 04:00 94 Ventilator+ 60 05/10/24 04:00 97.3 Ventilator 60 05/10/24 03:45 69 22 142/66 (91) 93 60 05/10/24 03:32 74 22 153/70 (97) 93 60 05/10/24 03:31 74 40 05/10/24 03:30 74 22 153/70 (97) 93 05/10/24 03:15 74 22 149/67 (94) 90 05/10/24 03:00 69 22 144/57 (86) 91 05/10/24 02:45 70 22 142/59 (86) 91 05/10/24 02:31 83 22 05/10/24 02:30 72 22 140/58 (85) 92 05/10/24 02:15 71 22 142/63 (89) 91 05/10/24 02:00 77 22 134/62 (86) 92 40 PHYSICAL EXAM: GENERAL: Alert and oriented x 3. No acute distress. Well-nourished. EYES: EOMI. Anicteric. HENT: Moist mucous membranes. No scleral icterus. No cervical lymphadenopathy. LUNGS: Clear to auscultation bilaterally. No accessory muscle use. CARDIOVASCULAR: Regular rate and rhythm. No murmur. No JVD. ABDOMEN: Soft, non-tender and non-distended. No palpable masses. EXTREMITIES: No edema. Non-tender.?SKIN: No rashes or lesions. Warm. NEUROLOGIC: No focal neurological deficits. CN II-XII grossly intact, but not individually tested. PSYCHIATRIC: Cooperative. Appropriate mood and affect. Current Medications Medications (Trade) Dose Ordered Sig/Jessenia Route PRN Reason Start Time Stop Time Status Last Admin Dose Admin Albuterol (DUOneb) 1 udvial [id number] IH 05/08/24 02:00 06/07/24 01:59 05/10/24 06:30 1 UDVIAL Albuterol Sulfate (Proventil 0.083% 2.5mg/3ml) 10 mg ONCE IH 05/07/24 19:30 05/08/24 07:02 DC 05/07/24 20:32 10 MG Albuterol Sulfate (Proventil 0.083% 2.5mg/3ml) 10 mg ONCE IH 05/08/24 04:00 05/08/24 07:02 DC Artificial Tears (Artificial Tears) 1 DROP OR AD Q4H4 OU 05/08/24 12:00 06/07/24 11:59 05/10/24 08:03 1 DROP Atorvastatin Calcium (LIPItor 10MG) 5 mg HS PO 05/09/24 21:00 06/08/24 20:59 05/09/24 21:05 5 MG Chlorhexidine Gluconate (Peridex) 15 ml Q8H MM 05/08/24 11:00 05/22/24 10:59 05/10/24 03:46 15 ML Dopamine HCl/ Dextrose 250 ml @ 0 mls/hr PROTOCOL PRN IV sb 05/09/24 09:30 06/08/24 09:29 Doxycycline Hyclate 250 ml @ 125 mls/hr Q12H IV 05/08/24 11:00 05/18/24 10:59 05/10/24 01:00 125 MLS/HR Fentanyl Citrate 100 ml @ 2.5 mls/hr PROTOCOL IV 05/08/24 11:00 05/08/24 10:56 DC Fentanyl Citrate 100 ml @ 0 mls/hr PROTOCOL IV 05/08/24 11:00 05/08/24 15:45 DC 05/08/24 10:56 2.5 MLS/HR Fentanyl/Sodium Chloride 250 ml @ 0 mls/hr PROTOCOL IV 05/08/24 16:00 05/13/24 15:59 05/08/24 19:29 25 MLS/HR Furosemide (LASix 40MG TAB) 40 mg QODAY PO 05/11/24 09:00 05/09/24 10:23 DC Furosemide (LASix 40MG VIAL) 40 mg Q12H IV 05/08/24 09:30 06/07/24 09:29 05/10/24 08:03 40 MG Home Med (Home Medication) DAILY PO 05/10/24 09:00 06/09/24 08:59 Home Med (Home Medication) LEVOTHYROXINE 37.5 MCG 1 CAP D PO 05/09/24 11:30 06/08/24 11:29 Home Med (Home Medication) Levocetirizine Dihydrochloride 2.5 MG HS PO 05/09/24 21:00 06/08/24 20:59 Insulin Glargine (LANtus 100 UNITS/ML 10 ML VIAL) 15 units BID@0730,2100 SQ 05/08/24 21:00 06/07/24 20:59 05/10/24 06:33 15 UNITS Insulin Human Regular (humuLIN R 100 UNIT/ML 3ML) INSULIN SLIDING SCAL... Q6H6 SQ 05/08/24 18:00 06/07/24 17:59 05/10/24 06:34 8 UNIT Latanoprost (Xalatan) DAILY OP 05/10/24 09:00 05/10/24 08:17 DC Latanoprost (Xalatan) ONE GTT DAILY OP 05/10/24 09:00 06/09/24 08:59 05/10/24 09:25 1 DROP Levothyroxine Sodium (SYNTHroid VIAL 100MCG) 75 mcg DAILY@0630 IV 05/09/24 06:30 06/08/24 06:29 05/10/24 06:32 75 MCG Melatonin (Melatonin) 5 mg HS PO 05/09/24 21:00 06/08/24 20:59 05/09/24 21:05 5 MG Methylprednisolone Sodium Succinate (Solu-medROL 40MG) 40 mg BID IVP 05/08/24 21:00 06/07/24 20:59 05/10/24 08:03 40 MG Midazolam HCl 50 ml @ 0 mls/hr PROTOCOL IV 05/08/24 11:00 05/15/24 10:59 05/08/24 19:59 5 MLS/HR Midazolam HCl 50 mg/Sodium Chloride 50 ml @ 0 mls/hr PROTOCOL IV 05/08/24 11:00 05/08/24 10:57 DC Nystatin (MycoSTATin 30 GM CREAM) 1 APPL TIDP PRN TP RASH 05/09/24 10:30 06/08/24 10:29 Pantoprazole Sodium (PROTonix 40MG INJ) 40 mg DAILY IVP 05/09/24 09:00 06/08/24 08:59 05/10/24 08:03 40 MG Piperacillin Sod/ Tazobactam Sod 50 ml @ 12.5 mls/hr Q12H IV 05/08/24 05:00 05/18/24 04:59 05/10/24 06:32 12.5 MLS/HR Polyethylene Glycol (MIRalax 3350 17 GM POWD.PACK) 17 gm DAILY PO 05/09/24 09:00 06/08/24 08:59 05/10/24 08:03 17 GM Propofol (DIPRivan 1000MG/ 100ML) 1,000 mg PROTOCOL PRN IV SEDATION 05/09/24 13:30 06/08/24 13:29 05/10/24 07:21 1,000 MG Sodium Polystyrene Sulfonate (kayEXALate 15 GM/60 ML) 15 gm Q2H PO 05/08/24 04:00 05/08/24 06:01 DC 05/08/24 06:10 15 GM Sodium Zirconium Cyclosilicate (Lokelma 10gm Powder) 10 gm TID PO 05/08/24 21:00 05/09/24 20:59 DC 05/09/24 08:45 10 GM Timolol Maleate (Timoptic) 1 GGT OD AD JESSENIA AD OD 05/09/24 10:30 06/08/24 10:29 LABORATORY: [ ] Hematology Labs: Test 05/10/24 04:11 05/09/24 03:33 Range/Units White Blood Count 3.7 L 4.8-10.8 K/uL Red Blood Count 4.25 4.00-5.50 MIL/uL Hemoglobin 11.9 L 12.0-16.0 g/dL Hematocrit 36.9 36-48 % Mean Corpuscular Volume 86.8 79-99 fL Mean Corpuscular Hemoglobin 28.0 27.0-33.0 pg Mean Corpuscular Hemoglobin Concent 32.2 32.0-36.0 g/dL Red Cell Distribution Width 16.4 H 11.0-15.5 % Platelet Count 86 L 130-400 K/uL Mean Platelet Volume 10.9 H 7.5-10.5 fL Immature Granulocyte % (Auto) 9.1 H 0-1 % Neutrophils (%) (Auto) 72.7 40.0-77.0 % Lymphocytes (%) (Auto) 15.0 L 21.0-51.0 % Monocytes (%) (Auto) 2.9 L 3.0-13.0 % Eosinophils (%) (Auto) 0.0 0.0-8.0 % Basophils (%) (Auto) 0.3 0.0-5.0 % Neutrophils # (Auto) 2.7 1.8-7.7 K/uL Lymphocytes # (Auto) 0.6 L 1.0-4.8 K/uL Monocytes # (Auto) 0.1 0.1-1.0 K/uL Eosinophils # (Auto) 0.00 0.00-0.70 K/uL Basophils # (Auto) 0.01 0.00-0.20 K/uL Absolute Immature Granulocyte (auto 0.34 0-1 K/uL Nucleated Red Blood Cells 0.0 0.0-0.19 % Erythrocyte Sedimentation Rate 50 H 0-30 MM/HR Chemistry Labs: Test 05/10/24 04:11 05/10/24 00:52 05/09/24 03:33 Range/Units Sodium Level 144 136-145 mmol/L Potassium Level 3.6 3.5-5.1 mmol/L Chloride Level 101 101-111 mmol/L Carbon Dioxide Level 33 H 21-32 mmol/L Blood Urea Nitrogen 51 H 7-18 mg/dL Creatinine 2.5 H 0.5-1.0 mg/dL Glomerular Filtration Rate Calc 18 >90 mL/min Random Glucose 209 H 70-105 mg/dL Total Calcium 8.3 L 8.5-10.1 mg/dL Total Bilirubin 1.0 0.2-1.0 mg/dL Aspartate Amino Transf (AST/SGOT) 27 10-37 U/L Alanine Aminotransferase (ALT/SGPT) 23 12-78 U/L Alkaline Phosphatase 79 50-136 U/L Total Protein 6.0 6.0-8.3 g/dL Albumin 2.5 L 3.5-5.0 g/dL Thyroid Stimulating Hormone (TSH) 0.39 0.36-3.74 uIU/mL Whole Blood Glucose 194 H 70-110 MG/DL Magnesium Level 2.00 1.80-2.40 mg/dL Ferritin 172 H 15-150 ng/mL C-Reactive Protein, Quantitative 67.20 H 0.5-3.0 mg/L DIAGNOSTICS / RADIOLOGY: REASON: intubated ORDERING PHYSICIAN: VERNA ONOFRE PROCEDURE: CXR1VW - CHEST 1VW FRONTAL CHEST RADIOGRAPH INDICATION: intubated COMPARISON: 05/09/2024 FINDINGS/IMPRESSION: playground monitor leads overlie the field of view. Stable endotracheal tube, NG tube, and right PICC. Stable heart size and mild left greater than right-sided pulmonary vascular congestion. Unchanged bilateral perihilar atelectasis and right infrahilar consolidation, without pneumothorax. DICTATED BY: LAKISHA MINOR MD DATE: 05/10/24942 REASON: chf ORDERING PHYSICIAN: JARED QUIÑONEZ PROCEDURE: ECHO CMP - ECHO 2-D COMPLETE APPROVED REPORT EXAM: Two-dimensional and M-mode echocardiogram with Doppler and color Doppler. INDICATION ICD: Heart Failure 2D Dimensions RVDd 4.1 cm LVEF(%) 48.7 (>50%) LVED Vol(simp.) 92.7 mL IVSd 0.8 (0.7-1.1cm) FS(%) 24 % LVES Vol(simp.) 37.8 mL LVDd 4.5 (3.8-5.6cm) LA (2D) 3.8 (1.6-4.0cm) LVEF(%, simp.) 59 % PWd 1.0 (0.7-1.1cm) Ao Root(2D) 3.0 (2.0-3.7cm) LA ESV INDEX (4CH) 21.80 mL/m2 IVSs 1.0 cm LVOT diam 2.0 (1.8-2.4cm) LA ESV INDEX (2CH) 31.00 mL/m 2 LVDs 3.4 (2.5-4.0cm) LA ESV INDEX (BP) 27.90 mL/m2 PWs 1.5 cm M-Mode Dimensions EPSS 0.9 cm LA (MM) 4.9 (1.6-4.0cm) Ao Root(MM) 2.7 (2.0-3.7cm) Aortic Valve AoV VTI 0.3 m Ao Mean GR 3.0 mmHg LVOT VTI 0.16 m TDI Medial E' Peak V 5.50 cm/s Lateral E' Peak V 7.80 cm/s Pulmonary Valve PV Vmax 0.8 m/s PV Peak GR 2.6 mmHg Left Ventricle The left ventricle is normal size. No regional wall motion abnormalities noted. Mild concentric left ventricular hypertrophy. Left ventricle systolic function is low-normal, estimated LVEF is 50-55%. Indeterminate diastolic function. Right Ventricle The right ventricle is normal size. The right ventricular systolic function is normal. Atria The left atrium size is normal. The right atrium size is normal. Aortic Valve Aortic valve is probably trileaflet. The leaflets are mildly thickened and calcified. No aortic regurgitation is present. There is no aortic valvular stenosis. Mitral Valve Mild mitral annular calcification is noted. The leaflets are mildly thickened and calcified. Trace mitral regurgitation. There is no mitral valve stenosis. Tricuspid Valve The tricuspid valve is normal in structure. Trace tricuspid regurgitation. RVSP is normal. Pulmonic Valve Pulmonic valve is not well visualized. Great Vessels The aortic root is normal in size. The IVC is normal in size and collapses >50% with inspiration. Pericardium There is no pericardial effusion. Other Information Quality : Fair Conclusion The cardiac chambers are normal in size. Mild concentric left ventricular hypertrophy. No regional wall motion abnormalities noted. Left ventricle systolic function is low-normal, estimated LVEF is 50-55%. Indeterminate diastolic function. Trace mitral regurgitation. Trace tricuspid regurgitation. PASP is normal. There is no pericardial effusion. DICTATED BY: GEM WADSWORTH MD DATE: 05/08/24 1142 REASON: [facility] ORDERING PHYSICIAN: VERNA ONOFRE PROCEDURE: HEAD WO - CT HEAD/BRAIN W/O CONTRAST CT HEAD/BRAIN W/O CONTRAST HISTORY: Altered mental status COMPARISON: None TECHNIQUE: Multiple sequential axial images of the head were obtained from the base of the skull through vertex. Patient was not given contrast through intravenous route. FINDINGS: The ventricles and extraventricular CSF spaces are dilated consistent with cerebral atrophy. Nonspecific white matter changes seen. There is no midline shift, mass effect or herniation. No acute intracranial bleed is seen. Visualized portion of the paranasal sinuses are grossly within normal limits. IMPRESSION: 1. No acute intracranial bleed is seen. 2. Atrophy with white matter changes. CT was performed with one or more following dose reduction techniques: automated exposure control, adjustment of the mA and kv according to patient's size, or use of a iterative reconstruction technique. DICTATED BY: RAKEL WELSH MD DATE: 05/08/24 1436 REASON: arf ORDERING PHYSICIAN: JARED QUIÑONEZ [employer]UMENT [employer]SEM[employer] SUPERVISOR PROCEDURE: RENAL - US RENAL SONOGRAM US RENAL SONOGRAM HISTORY: Acute renal failure COMPARISON: None TECHNIQUE: Renal and bladder ultrasound study was performed. FINDINGS: Both kidneys are not seen limiting evaluation. Bladder is poorly distended with Marley catheter. The study is limited due to patient's body habitus. IMPRESSION: 1. Both kidneys are not seen. DICTATED BY: RAKEL WELSH MD DATE: 05/08/24 0842 REASON: Dyspnea/SOB ORDERING PHYSICIAN: EMILY COREAS MD PROCEDURE: CXR1VW - CHEST 1VW CHEST 1VW HISTORY: Dyspnea and shortness of breath COMPARISON: 06/05/2019 FINDINGS: A frontal projection of the chest was obtained. Mild bilateral pulmonary infiltrates are seen may be related to mild pulmonary vascular congestion with possible superimposed pneumonitis. The heart is borderline enlarged. Poor inspiratory effort is seen. No evidence of aortic calcification is seen. IMPRESSION: 1. Mild bilateral pulmonary infiltrates are seen may be related to mild pulmonary vascular congestion with possible superimposed pneumonitis. 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 We have reviewed external records in detail Continue with NGT feeds Require close monitoring of renal function and electrolytes Order CBC, CMP, and electrolytes in am Continue with antibiotics Continue mechanical ventilation and sedation IV pressors as needed Monitor blood pressure adjust medication doses as needed Avoid hypotensive episodes May use Dilaudid 0.5 mg IV every 6 hours as needed for severe pain Monitor blood sugars Strict intake, output, and daily weight should be monitored Please renally adjust medications Avoid nephrotoxic and nonsteroidal drugs Avoid contrast if possible Will continue to monitor renal function, anemia, electrolytes Treatment plan discussed with patient Questions were answered We have discussed with the other team physicians in detail about the care plan We will continue to monitor the patient closely Total critical care time spent with patient, nursing staff, critical care team over 35 minutes ATTESTATION BY PHYSICIAN I have seen and examined the patient. I reviewed the documentation, medical decision making, and treatment plan as noted by the mid-level provider above. I agree with the findings and plan of care. ALFONZO SAMANO MD, [facility] May 10, 2024 09:58 ALFONZO SAMANO MD May 10, 2024 22:12
--- NOTE | 2024-05-10 10:46 | PN ---
[facility] PROGRESS NOTE Date Patient Seen: May 10, 2024 Time of Visit: 10:46 Supervising Physician: David Adams MD Primary Care Physician: Attending team: [facility] hospitalist team. 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 CBC similar to yesterday platelet count improved slightly 11279 today. Chemistry sodium was 146 potassium is 5.8 covered with Lokelma and 5 units of regular insulin IV push with half an amp of D50 BUN 39 creatinine 2.3 and GFR of 20 glucose 196 mg/dL total calcium 7.9 albumin 2.4 and total protein 5.9. Chest x-ray no pneumothorax or pleural effusion. Bilateral pulmonary vascular congestion noted with possible superimposed pneumonitis. CT of the head showed no acute intracranial bleed seen. Atrophy with white matter changes. Pending a 2D echo. Discussed goals of care with daughters and they requested full code including intubation at this time. Decision was made to intubate and both in agreement. 05/09/24- no major overnight events patient started on sedation vacation today following commands. Failed spontaneous breathing trials with pressure support of 10. We will try again tomorrow. She has been afebrile with a episodes of bradycardia in the 50s but hemodynamically stable heart rate earlier this morning in the 40s prior to sedation vacation while off sedation patient's heart rate increased to 70s and 80s blood pressure 162/71 with saturation 95% with FiO2 of 40% on the vent with settings of assist control volume control tidal volume 400 respiratory rate of 22 FiO2 of 60 and PEEP of 5. This morning ABGs was pH of 7.46 pCO2 of 47 PO2 of 90.9 bicarb of 97.3 attempted spontaneous breathing trials CO2 increased to 64 pH dropped to 7.33 and decided to put patient back on assist-control volume control previous settings. Respiratory culture growing Gram-positive cocci in chains and clusters. Patient has good urine output 3 L in the last 24 hours with a balance of-2.4 L. On laboratory WBCs 4.7 decreased from yesterday with 27 platelet count slightly decreased 17647 today. Chemistries sodium 146 carbon dioxide is 36 BUN of 48 creatinine of 2.6 and GFR of 17 glucose 155 mg/dL total calcium 8.2 CRP 67.2 any total protein 5.7 albumin 2.4 on chest x-ray bilateral pulmonary infiltrates are seen suggestive of pulmonary vascular congestion with possible superimposed Humira very minimal improvement ET tube above the taty approximately 3 cm. 05/10/24-per RN patient gets bradycardic when sedated overnight and was started on dopamine drip weaned off this morning. patient is on sedation vacation following commands but has been failing spontaneous breathing trials. We will try daily SBT's and daily sedation vacation. She has been afebrile with a T-max of 98.1 and a T low of 97.0. Urine output 3.3 L in the last 24 hours with a balance of -678 mL. WBCs similar to yesterday 3.7 H&H is 11.9/36.9 similar to yesterday platelet count slightly improving 98940 neutrophils normalized. Creatinine seems stable 2.5 and GFR 18 with a BUN of 51. On ABG pH of 7.55 pCO2 of 33 PO2 of 60.3 bicarb of 29. Lasix is on hold suspected contraction alkalosis, with a cumulative balance of-3.2 L patient continues with Flagyl cefepime and doxy. Sinus x-ray, [address] to [address], NG tube and right PICC line in good positions. Stable heart size and mild left greater than right- sided pulmonary vascular congestion unchanged bilateral perihilar atelectasis in the right infrahilar sedation without pneumothorax. REVIEW OF SYSTEMS: Unable to obtain ROS from patient due to patient is somnolent. PHYSICAL EXAM: GENERAL: Critically ill, intubated on mechanical ventilation HEENT: Sclera non icteric, moist mucosa NECK: Supple, no JVD, trachea midline LUNGS: Diminished breath sounds bilaterally. No wheezes HEART: Regular rate and rhythm. Normal S1 and S2, without murmurs ABD: Abdomen soft, obese, nontender. Bowel sounds present EXT: No clubbing cyanosis or edema NEURO: Intubated on sedation vacation following commands. Vital Signs (last 8hr) Date Time Temp Pulse Resp B/P (MAP) Pulse Ox O2 Delivery O2 Flow Rate FiO2 05/10/24 10:41 50 05/10/24 10:40 73 22 05/10/24 09:53 69 60 05/10/24 08:45 71 22 143/70 (94) 96 05/10/24 08:30 67 22 138/60 (86) 96 05/10/24 08:30 67 22 138/60 (86) 96 60 05/10/24 08:15 71 22 142/65 (90) 96 05/10/24 08:15 71 22 142/65 (90) 96 60 05/10/24 08:00 97.7 05/10/24 08:00 63 22 144/52 (82) 96 60 05/10/24 08:00 94 Ventilator+ 60 05/10/24 08:00 63 22 144/52 (82) 96 05/10/24 07:45 70 22 153/73 (99) 96 05/10/24 07:45 70 22 153/73 (99) 96 60 05/10/24 07:30 66 22 147/65 (92) 95 60 05/10/24 07:15 69 23 150/69 (96) 96 60 05/10/24 07:00 67 22 150/69 (96) 96 60 05/10/24 07:00 67 22 146/72 (96) 96 60 05/10/24 06:45 67 22 146/72 (96) 96 60 05/10/24 06:31 74 22 05/10/24 06:30 68 22 140/65 (90) 96 60 05/10/24 06:27 74 60 05/10/24 06:15 71 23 145/61 (89) 96 60 05/10/24 06:00 75 22 146/66 (92) 97 60 05/10/24 05:45 85 22 141/76 (97) 96 60 05/10/24 05:30 80 22 138/68 (91) 96 60 05/10/24 05:15 79 23 134/63 (86) 96 60 05/10/24 05:00 77 22 130/65 (86) 99 60 05/10/24 04:45 70 22 154/66 (95) 60 05/10/24 04:30 69 23 160/74 (102) 60 05/10/24 04:15 71 22 141/50 (80) 94 60 05/10/24 04:00 98.6 70 22 136/62 (86) 94 60 05/10/24 04:00 94 Ventilator+ 60 05/10/24 04:00 97.3 Ventilator 60 05/10/24 03:45 69 22 142/66 (91) 93 60 05/10/24 03:32 74 22 153/70 (97) 93 60 05/10/24 03:31 74 40 05/10/24 03:30 74 22 153/70 (97) 93 05/10/24 03:15 74 22 149/67 (94) 90 05/10/24 03:00 69 22 144/57 (86) 91 LABS: Hematology Labs: Test 05/10/24 04:11 05/09/24 03:33 Range/Units White Blood Count 3.7 L 4.8-10.8 K/uL Red Blood Count 4.25 4.00-5.50 MIL/uL Hemoglobin 11.9 L 12.0-16.0 g/dL Hematocrit 36.9 36-48 % Mean Corpuscular Volume 86.8 79-99 fL Mean Corpuscular Hemoglobin 28.0 27.0-33.0 pg Mean Corpuscular Hemoglobin Concent 32.2 32.0-36.0 g/dL Red Cell Distribution Width 16.4 H 11.0-15.5 % Platelet Count 86 L 130-400 K/uL Mean Platelet Volume 10.9 H 7.5-10.5 fL Immature Granulocyte % (Auto) 9.1 H 0-1 % Neutrophils (%) (Auto) 72.7 40.0-77.0 % Lymphocytes (%) (Auto) 15.0 L 21.0-51.0 % Monocytes (%) (Auto) 2.9 L 3.0-13.0 % Eosinophils (%) (Auto) 0.0 0.0-8.0 % Basophils (%) (Auto) 0.3 0.0-5.0 % Neutrophils # (Auto) 2.7 1.8-7.7 K/uL Lymphocytes # (Auto) 0.6 L 1.0-4.8 K/uL Monocytes # (Auto) 0.1 0.1-1.0 K/uL Eosinophils # (Auto) 0.00 0.00-0.70 K/uL Basophils # (Auto) 0.01 0.00-0.20 K/uL Absolute Immature Granulocyte (auto 0.34 0-1 K/uL Nucleated Red Blood Cells 0.0 0.0-0.19 % Erythrocyte Sedimentation Rate 50 H 0-30 MM/HR Chemistry Labs: Test 05/10/24 04:11 05/10/24 00:52 05/09/24 03:33 Range/Units Sodium Level 144 136-145 mmol/L Potassium Level 3.6 3.5-5.1 mmol/L Chloride Level 101 101-111 mmol/L Carbon Dioxide Level 33 H 21-32 mmol/L Blood Urea Nitrogen 51 H 7-18 mg/dL Creatinine 2.5 H 0.5-1.0 mg/dL Glomerular Filtration Rate Calc 18 >90 mL/min Random Glucose 209 H 70-105 mg/dL Total Calcium 8.3 L 8.5-10.1 mg/dL Total Bilirubin 1.0 0.2-1.0 mg/dL Aspartate Amino Transf (AST/SGOT) 27 10-37 U/L Alanine Aminotransferase (ALT/SGPT) 23 12-78 U/L Alkaline Phosphatase 79 50-136 U/L Total Protein 6.0 6.0-8.3 g/dL Albumin 2.5 L 3.5-5.0 g/dL Thyroid Stimulating Hormone (TSH) 0.39 0.36-3.74 uIU/mL Whole Blood Glucose 194 H 70-110 MG/DL Magnesium Level 2.00 1.80-2.40 mg/dL Ferritin 172 H 15-150 ng/mL C-Reactive Protein, Quantitative 67.20 H 0.5-3.0 mg/L DIAGNOSTICS / RADIOLOGY RESULTS: IMAGING REPORT Signed PATIENT: TEMITOPE ROBBINS MR#: [id number] : 1935 SEX: F AGE: 88 LOCATION: [facility] ORDER 99 STATUS: ADM IN REPORT#: [id number] SERVICE 0600 REASON: intubated ORDERING PHYSICIAN: VERNA ONOFRE PROCEDURE: CXR1VW - CHEST 1VW FRONTAL CHEST RADIOGRAPH INDICATION: intubated COMPARISON: 05/09/2024 FINDINGS/IMPRESSION: surveillance system monitor leads overlie the field of view. Stable endotracheal tube, NG tube, and right PICC. Stable heart size and mild left greater than right-sided pulmonary vascular congestion. Unchanged bilateral perihilar atelectasis and right infrahilar consolidation, without pneumothorax. DICTATED BY: LAKISHA MINOR MD DATE: 05/10/24942 ELECTRONICALLY SIGNED BY: LAKISHA MINOR MD DATE: 05/10/24945 PLAN Continue ICU care Follow ABGs and adjust ventilator settings as needed. Albuterol and Atrovent nebulizer treatment scheduled. Continue antibiotic therapy: defepime and doxy for CAP coverage follow ID recs Continue Lasix 40 mg IV daily. Follow Nephrology recommendations. Monitor electrolytes and cover accordingly. Monitor renal and liver function. Daily sedation vacation Daily spontaneous breathing trials GI and DVT prophylaxis. Patient is DNR and DNI. If patient meets criteria for extubation we will extubate but as per daughter's request they opted not to reintubate. NEURO: Minimize central acting medications as possible. Fall Precautions. Well lighted room through the day and minimize interruptions through the night to prevent acute delirium. CT of the head ruled out intracranial bleed due to altered mental status PULMONARY: Supplemental 02 as needed Titrate Fio2 to keep Spo2 > or = 90% DuoNebs and CPT as needed IS hourly while awake for pulmonary hygiene Out of bed to chair as tolerated VAP Bundle Ventilator settings assist control volume control tidal volume 400 respiratory rate of 22 FiO2 of 40% and PEEP of 5. Monitor chest x-ray Duo nebs as needed Solu-Medrol 40 mg IV push b.i.d. CARDIOVASCULAR: Follow hemodynamics. Titrate vasopressor to keep MAP >65 or systolic blood pressure >95mmHg ICU vital signs Telemetry monitoring 2D echo pending GI & NUTRITION: Continue nutritional support Aspirations precautions Prokinetic agents and laxatives as needed NG tube Tube feedings Dietary consult for recommendations MiraLax daily for bowel regimen KIDNEYS & ELECTROLYTES: Strict monitoring of intake and output Daily weights Avoid nephrotoxic agents Monitor electrolytes and replace as needed Goal urine output of 30mL/hr or 0.5mL/kg/hr Follow nephrology recommendation Monitor electrolytes closely and correct accordingly Lokelma 10 mg 3 times a day then 10 mg daily ENDOCRINE: Maintain blood glucose between 100-180 at all times. Insulin sliding scale for blood glucose management Lantus for long-acting insulin Insulin sliding scale q.6 hours Hypoglycemia protocol p.r.n. INFECTIOUS DISEASE: Trend temperature. Velazco-culture if febrile. influenza- covid- strep abx: zosyn and doxy HEMATOLOGY & COAGULATION: Monitor H&H. Keep Hgb > 7 Transfuse 1 unit of PRBC for Hgb < 7 Transfuse 1 pack of platelets of platelets < 20, 000 Watch for any signs and symptoms of bleeding monitor platelets and for bleeding autoimmune work up SKIN: Pressure ulcer prevention per facility protocol turn q2 hrs per facilty protocol Rehab: PT/OT Code Status: Full Resuscitation Disposition: [Admit to ICU] Other: Total patient critical care time exceeds 45 minutes excluding all procedures. VERNA ONOFRE [facility] May 10, 2024 10:46
[2024-05-10] MEDS ORDERED: VANCOMYCIN PROTOCOL PER PHARMACY IV SCH (11:00)
[2024-05-10] MEDS: ceFEPime HCL 1 GM VIAL IVPB SCH (11:47)
[2024-05-10] MEDS: VANCOMYCIN 1.75 GM/250 ML BAG 250 ML IV ONE (12:00)
[2024-05-10] MEDS: metRONIDazole 500MG/100ML BAG 100 ML IVPB SCH (14:16)
--- NOTE | 2024-05-10 17:15 | CONS ---
DATE OF SERVICE: 05/10/2024. INFECTIOUS DISEASE CONSULTATION NOTE REQUESTING PHYSICIAN: Marzena Coats NP REASON FOR CONSULTATION: Pneumonia and respiratory failure. HISTORY OF PRESENT ILLNESS: This is an 88-year-old female with history of dementia, asthma, COPD, chronic respiratory failure, on home oxygen, who was brought to the Emergency Room with cough, shortness of breath, and altered mental status. The patient found with increasing confusion and shortness of breath ____ oral intake. The patient brought to the Emergency Room by the family. In the ER, the patient was found with respiratory failure, placed on BiPAP therapy. Due to worsening respiratory failure, the patient has not been intubated and transferred to ICU. The patient also found with low blood pressure. The patient previously was on hospice at home, which has been revoked by the family. No sick contact. She has bloody diarrhea. The patient was having cough in [facility]. PAST MEDICAL HISTORY: * Asthma. * COPD. * Morbid obesity. * CHF. * Dyslipidemia. * Hypothyroidism. * Dementia. * Chronic kidney disease. PAST SURGICAL HISTORY: * Bowel resection. * Cholecystectomy. * Appendectomy. * Hemorrhoidectomy. ALLERGIES: No known drug allergy. CURRENT MEDICATIONS: * Solu-Medrol. * Cefepime. * Flagyl. * DuoNeb. * Tylenol. * Lovenox. SOCIAL HISTORY: Lives with family. No alcohol, tobacco or illicit drug use. FAMILY HISTORY: Noncontributory. REVIEW OF SYSTEMS: The patient is intubated and sedated. Available history obtained from medical record. PHYSICAL EXAMINATION: GENERAL: Elderly female, sedated and intubated ____. VITAL SIGNS: Temperature 97.9, pulse 76, respiration 22, and BP 155/69. EYES: No icterus. Pupils equal and reactive. HENT: No oral thrush seen, orally intubated, on ventilatory support. NECK: Supple, no JVD, no thyromegaly. LUNGS: Crackles bilaterally, no rhonchi. CARDIOVASCULAR: S1, S2 regular. No murmur heard. ABDOMEN: Obese, soft. Bowel sounds present. CENTRAL NERVOUS SYSTEM: The patient is sedated. Bedbound debility. SKIN: No rashes, no itchiness. LYMPHATIC: No peripheral lymphadenopathy. BACK: No deformity, no pressure ulcer. MUSCULOSKELETAL: No joint swelling, erythema, and tenderness. LABORATORY DATA: Sodium 144, potassium 3.6, BUN 54, and creatinine 2.5. WBC 3.7, hemoglobin 11.9, and platelet 86,000. Influenza antigen negative. Blood culture, no growth for 2 days. Sputum culture shows normal danielle. ASSESSMENT: An 88-year-old female presented to the hospital with cough and shortness of breath. CURRENT PROBLEMS: Include: * Hypoxic respiratory failure, status post intubation. * Pneumonia. * Hypothyroidism. * Renal failure. * Obesity. * History of dementia. PLAN: * Continue cefepime. * Continue metronidazole. * Continue Solu-Medrol. * Continue critical care support. * Continue ventilatory support. * Continue pain management. * Continue DVT prophylaxis. * Monitor electrolytes. * The patient will be followed up closely. Thank you for allowing me to participate in the care of this patient. TID: [id number] RECEIPT: [id number]
--- NOTE | 2024-05-10 18:05 | PN ---
Subjective Review of Systems PROGRESS NOTE Date of Visit: May 10, 2024 Time of Visit: 17:55 Events since last encounter PATIENT REMAINS ON VENTILATOR Subjective SEDATED Objective Vitals and I/O Vital Sign (Last 24 Hours) 05/07/24 05/10/24 05/10/24 18:48 16:00 16:45 Pulse 85 Resp 22 B/P (MAP) 149/65 (93) Pulse Ox 99 O2 Delivery Ventilator+ O2 Flow Rate 10 FiO2 60 Intake & Output (last 24hrs) 05/09/24 05/09/24 05/10/24 15:00 23:00 07:00 Intake Total 336.5 ml 803.7 ml 1267.2 ml Output Total 1000 ml 2300 ml Balance 336.5 ml -196.3 ml -1032.8 ml General: Other (SEDATED ON VENTILATOR WITH MORBID OBESITY) HEENT: PERRLA Neck: Supple, No thyromegaly Lungs: Other (COARSE BS) Heart: Regular rate, Regular rhythm Abdomen: No masses Extremities: No clubbing, No cyanosis, No edema Results RADIOLOGY: [] EKG: [] Laboratory Tests Test 05/10/24 00:52 05/10/24 03:30 05/10/24 04:11 05/10/24 11:44 Whole Blood Glucose 194 MG/DL (70-110) H 168 MG/DL (70-110) H Blood Gas Specimen Type Arterial Arterial Blood pH 7.559 (7.350-7.450) Arterial Blood Partial Pressure CO2 33 mmHg (32-45) Arterial Blood Partial Pressure O2 60.3 mmHg (83.0-108.0) L Arterial Blood HCO3 29.0 mmol/L (21.0-28.0) H Arterial Blood Oxygen Saturation 92.8 % (94.0-98.0) L Arterial Blood Base Excess 6.8 mmol/L (-2.0-3.0) H Hemoglobin (Blood Gas) 12.7 g/dL (12.0-16.0) Sodium (Blood Gas) 140 MMOL/L (136-145) Bedside Potassium (Blood Gas) 3.6 MMOL/L (3.4-4.5) Bedside Chloride (Blood Gas) 96 MMOL/L (98-107) L Bedside Glucose (Blood Gas) 200 MG/DL (65-95) H Bedside Ionized Calcium (Blood Gas) 1.06 MMOL/L (1.15-1.33) L Bedside Lactic Acid (Blood Gas) 2.37 MMOL/L (0.36-0.75) H Blood Gas Temperature 37.0 CELSIUS (35.5-37.0) Blood Gas Respiration Rate 22.0 min. Blood Gas Vent Mode ACVC (ROOM AIR) FiO2 40.0 % Blood Gas Tidal Volume 400 ml Blood Gas PEEP 5 cm H2O Blood Gas Specimen Comment LR RN KAREEM White Blood Count 3.7 K/uL (4.8-10.8) L Red Blood Count 4.25 MIL/uL (4.00-5.50) Hemoglobin 11.9 g/dL (12.0-16.0) L Hematocrit 36.9 % (36-48) Mean Corpuscular Volume 86.8 fL (79-99) Mean Corpuscular Hemoglobin 28.0 pg (27.0-33.0) Mean Corpuscular Hemoglobin Concent 32.2 g/dL (32.0-36.0) Red Cell Distribution Width 16.4 % (11.0-15.5) H Platelet Count 86 K/uL (130-400) L Mean Platelet Volume 10.9 fL (7.5-10.5) H Immature Granulocyte % (Auto) 9.1 % (0-1) H Neutrophils (%) (Auto) 72.7 % (40.0-77.0) Lymphocytes (%) (Auto) 15.0 % (21.0-51.0) L Monocytes (%) (Auto) 2.9 % (3.0-13.0) L Eosinophils (%) (Auto) 0.0 % (0.0-8.0) Basophils (%) (Auto) 0.3 % (0.0-5.0) Neutrophils # (Auto) 2.7 K/uL (1.8-7.7) Lymphocytes # (Auto) 0.6 K/uL (1.0-4.8) L Monocytes # (Auto) 0.1 K/uL (0.1-1.0) Eosinophils # (Auto) 0.00 K/uL (0.00-0.70) Basophils # (Auto) 0.01 K/uL (0.00-0.20) Absolute Immature Granulocyte (auto 0.34 K/uL (0-1) Nucleated Red Blood Cells 0.0 % (0.0-0.19) Sodium Level 144 mmol/L (136-145) Potassium Level 3.6 mmol/L (3.5-5.1) Chloride Level 101 mmol/L (101-111) Carbon Dioxide Level 33 mmol/L (21-32) H Blood Urea Nitrogen 51 mg/dL (7-18) H Creatinine 2.5 mg/dL (0.5-1.0) H Glomerular Filtration Rate Calc 18 mL/min (>90) Random Glucose 209 mg/dL (70-105) H Total Calcium 8.3 mg/dL (8.5-10.1) L Total Bilirubin 1.0 mg/dL (0.2-1.0) Aspartate Amino Transf (AST/SGOT) 27 U/L (10-37) Alanine Aminotransferase (ALT/SGPT) 23 U/L (12-78) Alkaline Phosphatase 79 U/L (50-136) Total Protein 6.0 g/dL (6.0-8.3) Albumin 2.5 g/dL (3.5-5.0) L Thyroid Stimulating Hormone (TSH) 0.39 uIU/mL (0.36-3.74) Test 05/10/24 11:52 05/10/24 17:18 Whole Blood Glucose 195 MG/DL (70-110) H 155 MG/DL (70-110) H Medications Current Medications Methylprednisolone Sodium Succinate 120 mg ONCE ONCE IVP Last administered on 05/07/24at 19:18; Start 05/07/24 at 19:00; Stop 05/07/24 at 19:01; Status DC Albuterol 1 UDVIAL ONCE ONCE IH Last administered on 05/07/24at 19:02; Start 05/07/24 at 19:00; Stop 05/07/24 at 19:01; Status DC Piperacillin Sod/ Tazobactam Sod 3.375 gm ONCE ONCE IVPB Last administered on 05/07/24at 19:18; Start 05/07/24 at 19:00; Stop 05/07/24 at 19:01; Status DC Calcium Gluconate 1 gm/Sodium Chloride 110 ml @ 110 mls/hr ONCE ONCE IV Last administered on 05/07/24at 19:58; Start 05/07/24 at 19:30; Stop 05/07/24 at 20 :29; Status DC Dextrose 25 gm ONCE ONCE IV Last administered on 05/07/24at 19:59; Start 05/07/24 at 19:30; Stop 05/07/24 at 19:31; Status DC Insulin Human Regular 5 unit ONCE ONCE IV Last administered on 05/07/24at 19:59; Start 05/07/24 at 19:30; Stop 05/07/24 at 19:31; Status DC Albuterol Sulfate 10 mg ONCE IH Last administered on 05/07/24at 20:32; Start 05/07/24 at 19:30; Stop 05/08/24 at 07:02; Status DC Furosemide 20 mg ONCE ONCE IV Last administered on 05/07/24at 19:58; Start 05/07/24 at 20:00; Stop 05/07/24 at 20:06; Status DC Calcium Gluconate 1 gm STK-MED ONCE .ROUTE; Start 05/07/24 at 19:45; Stop 05/07/24 at 19:45; Status DC Dextrose 50 ml STK-MED ONCE IV; Start 05/07/24 at 19:46; Stop 05/07/24 at 19:46; Status DC Lorazepam 1 mg ONCE ONCE IVP Last administered on 05/07/24at 20:18; Start 05/07/24 at 20:30; Stop 05/07/24 at 20:31; Status DC Albuterol 1 udvial [id number] IH Last administered on 05/10/24at 15:09; Start 05/08/24 at 02:00; Stop 06/07/24 at 01:59 Piperacillin Sod/ Tazobactam Sod 50 ml @ 12.5 mls/hr Q12H IV Last administered on 05/10/24at 06:32; Start 05/08/24 at 05:00; Stop 05/10/24 at 10:39; Status DC Sodium Bicarbonate 50 meq ONCE ONCE IV Last administered on 05/08/24at 00:10; Start 05/08/24 at 00:00; Stop 05/08/24 at 00:01; Status DC Sodium Polystyrene Sulfonate 15 gm ONCE ONCE PO Last administered on 05/08/24at 00:00; Start 05/08/24 at 00:00; Stop 05/08/24 at 00:01; Status DC Calcium Gluconate 1 gm/Sodium Chloride 110 ml @ 110 mls/hr ONCE ONCE IV Last administered on 05/08/24at 04:27; Start 05/08/24 at 04:00; Stop 05/08/24 at 04:59; Status DC Albuterol Sulfate 10 mg ONCE IH; Start 05/08/24 at 04:00; Stop 05/08/24 at 07:02; Status DC Sodium Polystyrene Sulfonate 15 gm Q2H PO Last administered on 05/08/24at 06:10; Start 05/08/24 at 04:00; Stop 05/08/24 at 06:01; Status DC Sodium Bicarbonate 50 meq ONCE ONCE IV Last administered on 05/08/24at 04:27; Start 05/08/24 at 04:00; Stop 05/08/24 at 04:01; Status DC Insulin Human Regular 10 unit ONCE ONCE IV Last administered on 05/08/24at 04: 28; Start 05/08/24 at 04:00; Stop 05/08/24 at 04:01; Status DC Dextrose 50 ml ONCE ONCE IV Last administered on 05/08/24at 04:27; Start 05/08/24 at 04:00; Stop 05/08/24 at 04:01; Status DC Calcium Gluconate 1 gm STK-MED ONCE .ROUTE; Start 05/08/24 at 04:05; Stop 05/08/24 at 04:05; Status DC Furosemide 40 mg Q12H IV Last administered on 05/10/24at 08:03; Start 05/08/24 at 09:30; Stop 05/10/24 at 10:32; Status DC Levothyroxine Sodium 75 mcg DAILY@0630 IV Last administered on 05/10/24at 06:32; Start 05/09/24 at 06:30; Stop 06/08/24 at 06:29 Insulin Human Regular 5 unit ONCE ONCE IV Last administered on 05/08/24at 10:58; Start 05/08/24 at 10:30; Stop 05/08/24 at 10:31; Status DC Dextrose 25 ml ONCE ONCE IV Last administered on 05/08/24at 10:49; Start 05/08/24 at 10:30; Stop 05/08/24 at 10:31; Status DC Sodium Zirconium Cyclosilicate 10 gm ONCE ONCE PO Last administered on 05/08/24at 11:04; Start 05/08/24 at 10:30; Stop 05/08/24 at 10:31; Status DC Fentanyl Citrate 100 mcg STK-MED ONCE .ROUTE; Start 05/08/24 at 10:34; Stop 05/08/24 at 10:34; Status DC Fentanyl Citrate 100 ml @ As Directed STK-MED ONCE IV; Start 05/08/24 at 10:38; Stop 05/08/24 at 10:38; Status DC Midazolam HCl 50 ml @ 0 mls/hr PROTOCOL IV Last administered on 05/08/24at 19:59; Start 05/08/24 at 11:00; Stop 05/15/24 at 10:59 Fentanyl Citrate 100 ml @ 0 mls/hr PROTOCOL IV Last administered on 05/08/24at 10:56; Start 05/08/24 at 11:00; Stop 05/08/24 at 15:45; Status DC Fentanyl Citrate 100 mcg ONCE ONCE IVP Last administered on 05/08/24at 10:45; Start 05/08/24 at 11:00; Stop 05/08/24 at 11:01; Status DC Fentanyl Citrate 100 ml @ 2.5 mls/hr PROTOCOL IV; Start 05/08/24 at 11:00; Stop 05/08/24 at 10:56; Status DC Midazolam HCl 50 mg/Sodium Chloride 50 ml @ 0 mls/hr PROTOCOL IV; Start 05/08/24 at 11:00; Stop 05/08/24 at 10:57; Status DC Chlorhexidine Gluconate 15 ml Q8H MM Last administered on 05/10/24at 11:47; Start 05/08/24 at 11:00; Stop 05/22/24 at 10:59 Artificial Tears 1 DROP OR AD Q4H4 OU Last administered on 05/10/24at 12:29; Start 05/08/24 at 12:00; Stop 06/07/24 at 11:59 Doxycycline Hyclate 250 ml @ 125 mls/hr Q12H IV Last administered on 05/10/24at 01:00; Start 05/08/24 at 11:00; Stop 05/10/24 at 10:39; Status DC Rocuronium [place] 50 mg STK-MED ONCE IV; Start 05/07/24 at 13:32; Stop 05/08/24 at 13:32; Status DC Etomidate 20 mg STK-MED ONCE IVP; Start 05/07/24 at 13:32; Stop 05/08/24 at 13:32; Status DC Pantoprazole Sodium 40 mg DAILY IVP Last administered on 05/10/24at 08:03; Start 05/09/24 at 09:00; Stop 06/08/24 at 08:59 Methylprednisolone Sodium Succinate 40 mg BID IVP Last administered on 05/10/24at 08:03; Start 05/08/24 at 21:00; Stop 06/07/24 at 20:59 Polyethylene Glycol 17 gm DAILY PO Last administered on 05/10/24at 08:03; Start 05/09/24 at 09:00; Stop 06/08/24 at 08:59 Sodium Zirconium Cyclosilicate 10 gm TID PO Last administered on 05/09/24at 08:45; Start 05/08/24 at 21:00; Stop 05/09/24 at 20:59; Status DC Insulin Human Regular INSULIN SLIDING SCAL... Q6H6 SQ Last administered on 05/10/24at 06:34; Start 05/08/24 at 18:00; Stop 06/07/24 at 17:59 Insulin Glargine 15 units BID@0730,2100 SQ Last administered on 05/10/24at 06:33; Start 05/08/24 at 21:00; Stop 06/07/24 at 20:59 Fentanyl/Sodium Chloride 250 ml @ 0 mls/hr PROTOCOL IV Last administered on 05/08/24at 19:29; Start 05/08/24 at 16:00; Stop 05/13/24 at 15:59 Dopamine HCl/ Dextrose 250 ml @ 0 mls/hr PROTOCOL PRN IV; Start 05/09/24 at 09:30; Stop 06/08/24 at 09:29 Dopamine HCl/ Dextrose 250 ml @ As Directed STK-MED ONCE IV; Start 05/09/24 at 09:24; Stop 05/09/24 at 09:24; Status DC Furosemide 40 mg QODAY PO; Start 05/11/24 at 09:00; Stop 05/09/24 at 10:23; Status DC Nystatin 1 APPL TIDP PRN TP; Start 05/09/24 at 10:30; Stop 06/08/24 at 10:29 Timolol Maleate 1 GGT OD AD TOD AD OD; Start 05/09/24 at 10:30; Stop 06/08/24 at 10:29 Home Med DAILY PO; Start 05/10/24 at 09:00; Stop 06/09/24 at 08:59 Latanoprost DAILY OP; Start 05/10/24 at 09:00; Stop 05/10/24 at 08:17; Status DC Home Med Levocetirizine Dihydrochloride 2.5 MG HS PO; Start 05/09/24 at 21:00; Stop 06/08/24 at 20:59 Melatonin 5 mg HS PO Last administered on 05/09/24at 21:05; Start 05/09/24 at 21:00; Stop 06/08/24 at 20:59 Atorvastatin Calcium 5 mg HS PO Last administered on 05/09/24at 21:05; Start 05/09/24 at 21:00; Stop 06/08/24 at 20:59 Home Med LEVOTHYROXINE 37.5 MCG 1 CAP D PO; Start 05/09/24 at 11:30; Stop 06/08/24 at 11:29 Propofol 1,000 mg PROTOCOL PRN IV Last administered on 05/10/24at 07:21; Start 05/09/24 at 13:30; Stop 06/08/24 at 13:29 Latanoprost ONE GTT DAILY OP Last administered on 05/10/24at 09:25; Start 05/10/24 at 09:00; Stop 06/09/24 at 08:59 Cefepime HCl 1 gm Q24H IVPB Last administered on 05/10/24at 11:47; Start 05/10/24 at 11:00; Stop 05/20/24 at 10:59 Vancomycin HCl 1 each AD IV; Start 05/10/24 at 11:00; Stop 05/10/24 at 12:58; Status DC Metronidazole/ Sodium Chloride 100 ml @ 100 mls/hr Q8H6 IVPB Last administered on 05/10/24at 14:16; Start 05/10/24 at 14:00; Stop 05/20/24 at 13:59 Vancomycin HCl 250 ml @ 83.333 mls/ hr ONCE ONCE IV; Start 05/10/24 at 12:00; Stop 05/10/24 at 14:59; Status DC Assessment/Plan ASSESSMENT: THIS IS A 88 YR OLD WOMAN WITH HISTORY OF COPD BILAT LOWER EXTREMITY 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 Major depressive disorder, single episode, moderate MUSCLE SPASTICITY 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 HYPERLIPIDEMIA HYPOTHYROIDISM MORBID OBESITY : BMI 44.9 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, DUE TO LUNG DISEASE OBSTRUCTIVE SLEEP 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 ANXIETY D/O HH AND RENAL DIS /CKD 3 W SERRANO CHF SHE PRESENTED WITH ACUTE HYPERCAPNIC RESPIRATORY FAILURE REQUIRING MECHANICAL VENTILATION ACUTE RENAL FAILURE WITH HYPERKALEMIA ACUTE CHF THROMBOCYTOPENIA PNEUMONIA PLAN: CONTINUES WITH SEDATION WITH INTERMITTENT VENTILATOR WEANING WEANING PRESSORS ON CEFEPIME AND METRONIDAZOLE CULTURES NGTD WEANING IV STEROIDS CONT NEBS CONT ADDITIONAL INSULIN NEEDED MONITORING AND SUPPLEMENTING ELECTROLYTES NEEDED DVT PROPHYLAXIS W TEDS AND SCD STRESS ULCER PROPHYLAXIS W PPI CODE STATUS ESTABLISHED A DNR ONCE EXTUBATED, FAMILY DOES NOT WANT HER RE- INTUBATED AND WILLING TO RETURN TO HOSPICE CARE NEEDED SPOKE WITH DAUGHTER OVER THE PHONE AND IN AGREEMENT WITH CURRENT PLAN OF CARE SALLIE MOTA MD May 10, 2024 18:05
[2024-05-11] VITALS (127 sets, daily range): BP systolic 111–170; BP diastolic 44–108; PULSE 49–116; RESP 13–24; TEMP 97.3–98.9; O2SAT 94–99
[2024-05-11 03:59] LABS: ABG HCO3 28.1 mmol/L (21.0-28.0); ABG OXYGEN SATURATION 96.8 % (94.0-98.0); ABG PCO2 33 mmHg (32-45); PO2, ARTERIAL BG 76.9 mmHg (83.0-108.0); VENT MODE, BG ACVC (ROOM AIR)
[2024-05-11 04:59] LABS: BASOPHILS # (AUTO) 0.01 K/uL (0.00-0.20); BASOPHILS % (AUTO) 0.2 % (0.0-5.0); HEMATOCRIT 39.2 % (36-48); IMMATURE GRANULOCYTE ABSOLUTE 0.33 K/uL (0-1); LYMPHOCYTES # (AUTO) 0.7 K/uL (1.0-4.8); LYMPHOCYTES % (AUTO) 15.6 % (21.0-51.0); MEAN CORPUSCULAR HEMOGLOBIN 27.9 pg (27.0-33.0); MEAN CORPUSCULAR HGB CONC 32.1 g/dL (32.0-36.0); MEAN CORPUSCULAR VOLUME 86.9 fL (79-99); MONOCYTES # (AUTO) 0.2 K/uL (0.1-1.0); MONOCYTES % (AUTO) 3.8 % (3.0-13.0); NEUTROPHILS # (AUTO) 3.1 K/uL (1.8-7.7); NEUTROPHILS % (AUTO) 72.6 % (40.0-77.0); PLATELET COUNT (AUTO) 91 K/uL (130-400); RED BLOOD CELL COUNT(AUTO) 4.51 MIL/uL (4.00-5.50); RED CELL DISTRIBUTION WIDTH 16.5 % (11.0-15.5); WHITE BLOOD COUNT (AUTO) 4.2 K/uL (4.8-10.8)
[2024-05-11 05:38] LABS: ALBUMIN 2.7 g/dL (3.5-5.0); BILIRUBIN,TOTAL 0.9 mg/dL (0.2-1.0); CREATININE 2.4 mg/dL (0.5-1.0); POTASSIUM 3.5 mmol/L (3.5-5.1); TOTAL PROTEIN, SERUM 6.2 g/dL (6.0-8.3)
[2024-05-11] MEDS: DOXYCYCLINE HYCLATE 100 MG TABLET PO SCH (08:38)
[2024-05-11] MEDS ORDERED: furoSEMIDE 40 MG TABLET PO SCH (09:00)
--- NOTE | 2024-05-11 09:16 | HMCIMG ---
CHEST 1VW REASON: intubated COMPARISON: 05/10/2024 FINDINGS: There is been interval resolution of pulmonary vascular congestion. Heart size appears decreased as well. There is elevated right hemidiaphragm. Lungs are otherwise clear. ET and NG and PICC line remain in place. IMPRESSION: 1. Interval resolution of pulmonary vascular congestion
--- NOTE | 2024-05-11 09:26 | PN ---
[facility] PROGRESS NOTE Date Patient Seen: May 11, 2024 Time of Visit: 09:23 Supervising Physician: David Adams MD Primary Care Physician: Attending team: [facility] hospitalist team. 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 CBC similar to yesterday platelet count improved slightly 69384 today. Chemistry sodium was 146 potassium is 5.8 covered with Lokelma and 5 units of regular insulin IV push with half an amp of D50 BUN 39 creatinine 2.3 and GFR of 20 glucose 196 mg/dL total calcium 7.9 albumin 2.4 and total protein 5.9. Chest x-ray no pneumothorax or pleural effusion. Bilateral pulmonary vascular congestion noted with possible superimposed pneumonitis. CT of the head showed no acute intracranial bleed seen. Atrophy with white matter changes. Pending a 2D echo. Discussed goals of care with daughters and they requested full code including intubation at this time. Decision was made to intubate and both in agreement. 05/09/24- no major overnight events patient started on sedation vacation today following commands. Failed spontaneous breathing trials with pressure support of 10. We will try again tomorrow. She has been afebrile with a episodes of bradycardia in the 50s but hemodynamically stable heart rate earlier this morning in the 40s prior to sedation vacation while off sedation patient's heart rate increased to 70s and 80s blood pressure 162/71 with saturation 95% with FiO2 of 40% on the vent with settings of assist control volume control tidal volume 400 respiratory rate of 22 FiO2 of 60 and PEEP of 5. This morning ABGs was pH of 7.46 pCO2 of 47 PO2 of 90.9 bicarb of 97.3 attempted spontaneous breathing trials CO2 increased to 64 pH dropped to 7.33 and decided to put patient back on assist-control volume control previous settings. Respiratory culture growing Gram-positive cocci in chains and clusters. Patient has good urine output 3 L in the last 24 hours with a balance of-2.4 L. On laboratory WBCs 4.7 decreased from yesterday with 27 platelet count slightly decreased [id number] today. Chemistries sodium 146 carbon dioxide is 36 BUN of 48 creatinine of 2.6 and GFR of 17 glucose 155 mg/dL total calcium 8.2 CRP 67.2 any total protein 5.7 albumin 2.4 on chest x-ray bilateral pulmonary infiltrates are seen suggestive of pulmonary vascular congestion with possible superimposed Humira very minimal improvement ET tube above the taty approximately 3 cm. 05/10/24-per RN patient gets bradycardic when sedated overnight and was started on dopamine drip weaned off this morning. patient is on sedation vacation following commands but has been failing spontaneous breathing trials. We will try daily SBT's and daily sedation vacation. She has been afebrile with a T-max of 98.1 and a T low of 97.0. Urine output 3.3 L in the last 24 hours with a balance of -678 mL. WBCs similar to yesterday 3.7 H&H is 11.9/36.9 similar to yesterday platelet count slightly improving 39710 neutrophils normalized. Creatinine seems stable 2.5 and GFR 18 with a BUN of 51. On ABG pH of 7.55 pCO2 of 33 PO2 of 60.3 bicarb of 29. Lasix is on hold suspected contraction alkalosis, with a cumulative balance of-3.2 L patient continues with Flagyl cefepime and doxy. Sinus x-ray, [address], NG tube and right PICC line in good positions. Stable heart size and mild left greater than right- sided pulmonary vascular congestion unchanged bilateral perihilar atelectasis in the right infrahilar sedation without pneumothorax. 05/11-05/11-placed on sedation with propofol overnight this morning propofol was removed. She is following commands and awake. Trying SBT again this morning. She was restarted on dopamine drip overnight due to bradycardia likely from sedation. Weaning down dopamine drip this morning heart rate is 90 blood pressure 127/57 respiratory rate of 18 saturating 99%. Patient has been afebrile with a T-max of 98.1 and a T low of 97.3. Blood pressure this morning 124/61 heart rate in the 80s respiratory rate of 14 saturating 99% with FiO2 of 40% on the ventilator with settings as follows: Assist-control volume control tidal volume of 400 respiratory rate of 22 FiO2 of 50% and PEEP of. Urine output 2.7 L I&O balance magnum 659 with one bowel movement overnight. On laboratory WBCs are 4.2 H&H is normal neutrophils normalized 72.6. On chemistries sodium is 141 potassium is 3.5 chloride 90 BUN 54 creatinine 2.4 GFR 19 seems to be stable albumin 2.7. On ABG improvement to alkalosis. Pt tolerating SBT's we will continue with the rest of the day with pt on CPAP and tomorrow recheck ABG's and extubate if meets criteria. I have spoken to geovanni and she wishes not to reintubate her mother if she fails extubation. REVIEW OF SYSTEMS: Unable to obtain ROS from patient due to patient is somnolent. PHYSICAL EXAM: GENERAL: Pt awake following commands on SBT's tolerating/ HEENT: Sclera non icteric, moist mucosa NECK: Supple, no JVD, trachea midline LUNGS: Diminished breath sounds bilaterally. No wheezes HEART: Regular rate and rhythm. Normal S1 and S2, without murmurs ABD: Abdomen soft, obese, nontender. 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 NEURO: Intubated off sedation but on CPAP trials. Hx of Guillain-Reynolds with weakness to lower extremeties at baseline and bed bound status Vital Signs (last 8hr) Date Time Temp Pulse Resp B/P (MAP) Pulse Ox O2 Delivery O2 Flow Rate FiO2 05/11/24 08:00 99 Ventilator+ 40 05/11/24 07:47 85 14 124/61 99 Ventilator 40 05/11/24 07:45 87 19 99 Ventilator 40 05/11/24 07:32 54 40 05/11/24 07:32 83 19 140/72 99 Ventilator 40 05/11/24 07:30 82 17 99 Ventilator 40 05/11/24 07:17 78 21 125/50 98 Ventilator 40 05/11/24 07:15 74 21 98 Ventilator 40 05/11/24 07:02 74 22 134/47 100 Ventilator 40 05/11/24 07:00 75 21 99 Ventilator 40 05/11/24 06:47 63 22 127/62 99 Ventilator 40 05/11/24 06:45 63 22 100 Ventilator 40 05/11/24 06:45 63 22 127/62 (83) 99 40 05/11/24 06:32 63 22 05/11/24 06:30 67 22 122/60 (80) 100 40 05/11/24 06:29 54 40 05/11/24 06:15 60 22 154/65 (94) 98 40 05/11/24 06:00 58 22 127/62 (83) 98 40 05/11/24 05:45 60 22 135/58 (83) 98 40 05/11/24 05:30 56 22 137/63 (87) 98 40 05/11/24 05:15 61 22 129/59 (82) 98 40 05/11/24 05:00 57 22 121/52 (75) 98 40 05/11/24 04:45 105 22 127/65 (85) 97 40 05/11/24 04:30 86 22 141/82 (101) 97 40 05/11/24 04:00 97.5 72 98 40 05/11/24 04:00 99 Ventilator+ 40 05/11/24 04:00 97.5 Ventilator 40 05/11/24 03:45 53 23 151/61 (91) 93 40 05/11/24 03:30 54 22 153/63 (93) 91 40 05/11/24 03:29 52 40 05/11/24 03:15 55 22 142/56 (84) 91 40 05/11/24 03:00 52 22 136/63 (87) 91 40 05/11/24 02:45 49 22 128/49 (75) 94 40 05/11/24 02:33 56 22 05/11/24 02:30 50 22 128/46 (73) 95 40 05/11/24 02:15 97.3 Ventilator 40 05/11/24 02:15 55 22 140/60 (86) 95 40 05/11/24 02:00 57 22 141/64 (89) 96 05/11/24 01:45 58 22 136/57 (83) 97 40 05/11/24 01:30 59 22 129/59 (82) 97 40 LABS: Hematology Labs: Test 05/11/24 04:43 Range/Units White Blood Count 4.2 L 4.8-10.8 K/uL Red Blood Count 4.51 4.00-5.50 MIL/uL Hemoglobin 12.6 12.0-16.0 g/dL Hematocrit 39.2 36-48 % Mean Corpuscular Volume 86.9 79-99 fL Mean Corpuscular Hemoglobin 27.9 27.0-33.0 pg Mean Corpuscular Hemoglobin Concent 32.1 32.0-36.0 g/dL Red Cell Distribution Width 16.5 H 11.0-15.5 % Platelet Count 91 L 130-400 K/uL Mean Platelet Volume 11.1 H 7.5-10.5 fL Immature Granulocyte % (Auto) 7.8 H 0-1 % Neutrophils (%) (Auto) 72.6 40.0-77.0 % Lymphocytes (%) (Auto) 15.6 L 21.0-51.0 % Monocytes (%) (Auto) 3.8 3.0-13.0 % Eosinophils (%) (Auto) 0.0 0.0-8.0 % Basophils (%) (Auto) 0.2 0.0-5.0 % Neutrophils # (Auto) 3.1 1.8-7.7 K/uL Lymphocytes # (Auto) 0.7 L 1.0-4.8 K/uL Monocytes # (Auto) 0.2 0.1-1.0 K/uL Eosinophils # (Auto) 0.00 0.00-0.70 K/uL Basophils # (Auto) 0.01 0.00-0.20 K/uL Absolute Immature Granulocyte (auto 0.33 0-1 K/uL Nucleated Red Blood Cells 0.0 0.0-0.19 % Chemistry Labs: Test 05/11/24 04:43 05/10/24 23:34 05/10/24 04:11 Range/Units Sodium Level 141 136-145 mmol/L Potassium Level 3.5 3.5-5.1 mmol/L Chloride Level 99 L 101-111 mmol/L Carbon Dioxide Level 31 21-32 mmol/L Blood Urea Nitrogen 54 H 7-18 mg/dL Creatinine 2.4 H 0.5-1.0 mg/dL Glomerular Filtration Rate Calc 19 >90 mL/min Random Glucose 211 H 70-105 mg/dL Total Calcium 8.5 8.5-10.1 mg/dL Total Bilirubin 0.9 0.2-1.0 mg/dL Aspartate Amino Transf (AST/SGOT) 26 10-37 U/L Alanine Aminotransferase (ALT/SGPT) 26 12-78 U/L Alkaline Phosphatase 81 50-136 U/L Total Protein 6.2 6.0-8.3 g/dL Albumin 2.7 L 3.5-5.0 g/dL Whole Blood Glucose 148 H 70-110 MG/DL Thyroid Stimulating Hormone (TSH) 0.39 0.36-3.74 uIU/mL DIAGNOSTICS / RADIOLOGY RESULTS: [ ] PLAN Continue ICU care Follow ABGs and adjust ventilator settings as needed. Albuterol and Atrovent nebulizer treatment scheduled. Continue antibiotic therapy: defepime and doxy for CAP coverage follow ID recs Continue Lasix 40 mg IV daily. Follow Nephrology recommendations. Monitor electrolytes and cover accordingly. Monitor renal and liver function. Daily sedation vacation Daily spontaneous breathing trials, tolerating CPAP of 5, we will keep on CPAP for the rest of the day ABG in am and then try to extubate in am if meets criteria. GI and DVT prophylaxis. Patient is DNR and DNI. If patient meets criteria for extubation we will extubate but as per daughter's request they opted not to reintubate. NEURO: Minimize central acting medications as possible. Fall Precautions. Well lighted room through the day and minimize interruptions through the night to prevent acute delirium. CT of the head ruled out intracranial bleed due to altered mental status PULMONARY: Supplemental 02 as needed Titrate Fio2 to keep Spo2 > or = 90% DuoNebs and CPT as needed IS hourly while awake for pulmonary hygiene Out of bed to chair as tolerated VAP Bundle Ventilator settings assist control volume control tidal volume 400 respiratory rate of 22 FiO2 of 40% and PEEP of 5. Monitor chest x-ray Duo nebs as needed Solu-Medrol 40 mg IV push b.i.d. CARDIOVASCULAR: Follow hemodynamics. Titrate vasopressor to keep MAP >65 or systolic blood pressure >95mmHg ICU vital signs Telemetry monitoring 2D echo pending GI & NUTRITION: Continue nutritional support Aspirations precautions Prokinetic agents and laxatives as needed NG tube Tube feedings Dietary consult for recommendations MiraLax daily for bowel regimen KIDNEYS & ELECTROLYTES: Strict monitoring of intake and output Daily weights Avoid nephrotoxic agents Monitor electrolytes and replace as needed Goal urine output of 30mL/hr or 0.5mL/kg/hr Follow nephrology recommendation Monitor electrolytes closely and correct accordingly Lokelma 10 mg 3 times a day then 10 mg daily ENDOCRINE: Maintain blood glucose between 100-180 at all times. Insulin sliding scale for blood glucose management Lantus for long-acting insulin Insulin sliding scale q.6 hours Hypoglycemia protocol p.r.n. INFECTIOUS DISEASE: Trend temperature. Velazco-culture if febrile. influenza- covid- strep abx: zosyn and doxy HEMATOLOGY & COAGULATION: Monitor H&H. Keep Hgb > 7 Transfuse 1 unit of PRBC for Hgb < 7 Transfuse 1 pack of platelets of platelets < 20, 000 Watch for any signs and symptoms of bleeding monitor platelets and for bleeding autoimmune work up SKIN: Pressure ulcer prevention per facility protocol turn q2 hrs per facilty protocol Rehab: PT/OT Code Status: Full Resuscitation Disposition: [Admit to ICU] Other: Total patient critical care time exceeds 45 minutes excluding all procedures. VERNA ONOFRE [facility] May 11, 2024 09:26
[2024-05-11 11:20] LABS: ABG BASE EXCESS 4.9 mmol/L (-2.0-3.0); ABG HCO3 30.6 mmol/L (21.0-28.0); ABG OXYGEN SATURATION 97.1 % (94.0-98.0); ABG PCO2 49 mmHg (32-45); ABG PH 7.415 (7.350-7.450); VENT MODE, BG CPAP 5,5 (ROOM AIR)
--- NOTE | 2024-05-11 11:47 | PN ---
NEPHROLOGY PROGRESS NOTE Date/Time Patient Seen: May 11, 2024 SUBJECTIVE: This is an 88-year-old female who had previously been with hospice. The patient presented to the hospital with increasing shortness of breath and orthopnea. The patient with a history of known dementia. She has a history of sleep apnea. The family withdrew hospice care. In the Emergency Room, the patient intubated and brought to the ICU. The patient was noted to have significant renal dysfunction with an elevated BUN and creatinine Dopamine has been discontinued Vasopressors have been discontinued She continues to be intubated, sedation has been discontinued She is more awake today, Tolerating Nepro via OGT. The patient would not be a candidate for any form of renal replacement therapy at this time. Her renal function has remained stable Electrolytes are stable. Family now wishing for DNR status. REVIEW OF SYSTEMS: Difficult to obtain given status of the patient who remains intubated mechanically ventilated Vital Signs (last 8hr) Date Time Temp Pulse Resp B/P (MAP) Pulse Ox O2 Delivery O2 Flow Rate FiO2 05/10/24 08:45 71 22 143/70 (94) 96 05/10/24 08:30 67 22 138/60 (86) 96 05/10/24 08:30 67 22 138/60 (86) 96 60 05/10/24 08:15 71 22 142/65 (90) 96 05/10/24 08:15 71 22 142/65 (90) 96 60 05/10/24 08:00 97.7 05/10/24 08:00 63 22 144/52 (82) 96 60 05/10/24 08:00 94 Ventilator+ 60 05/10/24 08:00 63 22 144/52 (82) 96 05/10/24 07:45 70 22 153/73 (99) 96 05/10/24 07:45 70 22 153/73 (99) 96 60 05/10/24 07:30 66 22 147/65 (92) 95 60 05/10/24 07:15 69 23 150/69 (96) 96 60 05/10/24 07:00 67 22 150/69 (96) 96 60 05/10/24 07:00 67 22 146/72 (96) 96 60 05/10/24 06:45 67 22 146/72 (96) 96 60 05/10/24 06:31 74 22 05/10/24 06:30 68 22 140/65 (90) 96 60 05/10/24 06:27 74 60 05/10/24 06:15 71 23 145/61 (89) 96 60 05/10/24 06:00 75 22 146/66 (92) 97 60 05/10/24 05:45 85 22 141/76 (97) 96 60 05/10/24 05:30 80 22 138/68 (91) 96 60 05/10/24 05:15 79 23 134/63 (86) 96 60 05/10/24 05:00 77 22 130/65 (86) 99 60 05/10/24 04:45 70 22 154/66 (95) 60 05/10/24 04:30 69 23 160/74 (102) 60 05/10/24 04:15 71 22 141/50 (80) 94 60 05/10/24 04:00 98.6 70 22 136/62 (86) 94 60 05/10/24 04:00 94 Ventilator+ 60 05/10/24 04:00 97.3 Ventilator 60 05/10/24 03:45 69 22 142/66 (91) 93 60 05/10/24 03:32 74 22 153/70 (97) 93 60 05/10/24 03:31 74 40 05/10/24 03:30 74 22 153/70 (97) 93 05/10/24 03:15 74 22 149/67 (94) 90 05/10/24 03:00 69 22 144/57 (86) 91 05/10/24 02:45 70 22 142/59 (86) 91 05/10/24 02:31 83 22 05/10/24 02:30 72 22 140/58 (85) 92 05/10/24 02:15 71 22 142/63 (89) 91 05/10/24 02:00 77 22 134/62 (86) 92 40 PHYSICAL EXAM: GENERAL: Alert and oriented x 3. No acute distress. Well-nourished. EYES: EOMI. Anicteric. HENT: Moist mucous membranes. No scleral icterus. No cervical lymphadenopathy. LUNGS: Clear to auscultation bilaterally. No accessory muscle use. CARDIOVASCULAR: Regular rate and rhythm. No murmur. No JVD. ABDOMEN: Soft, non-tender and non-distended. No palpable masses. EXTREMITIES: No edema. Non-tender.?SKIN: No rashes or lesions. Warm. NEUROLOGIC: No focal neurological deficits. CN II-XII grossly intact, but not individually tested. PSYCHIATRIC: Cooperative. Appropriate mood and affect. Current Medications Medications (Trade) Dose Ordered Sig/Jessenia Route PRN Reason Start Time Stop Time Status Last Admin Dose Admin Albuterol (DUOneb) 1 udvial [id number] IH 05/08/24 02:00 06/07/24 01:59 05/10/24 06:30 1 UDVIAL Albuterol Sulfate (Proventil 0.083% 2.5mg/3ml) 10 mg ONCE IH 05/07/24 19:30 05/08/24 07:02 DC 05/07/24 20:32 10 MG Albuterol Sulfate (Proventil 0.083% 2.5mg/3ml) 10 mg ONCE IH 05/08/24 04:00 05/08/24 07:02 DC Artificial Tears (Artificial Tears) 1 DROP OR AD Q4H4 OU 05/08/24 12:00 06/07/24 11:59 05/10/24 08:03 1 DROP Atorvastatin Calcium (LIPItor 10MG) 5 mg HS PO 05/09/24 21:00 06/08/24 20:59 05/09/24 21:05 5 MG Chlorhexidine Gluconate (Peridex) 15 ml Q8H MM 05/08/24 11:00 05/22/24 10:59 05/10/24 03:46 15 ML Dopamine HCl/ Dextrose 250 ml @ 0 mls/hr PROTOCOL PRN IV sb 05/09/24 09:30 06/08/24 09:29 Doxycycline Hyclate 250 ml @ 125 mls/hr Q12H IV 05/08/24 11:00 05/18/24 10:59 05/10/24 01:00 125 MLS/HR Fentanyl Citrate 100 ml @ 2.5 mls/hr PROTOCOL IV 05/08/24 11:00 05/08/24 10:56 DC Fentanyl Citrate 100 ml @ 0 mls/hr PROTOCOL IV 05/08/24 11:00 05/08/24 15:45 DC 05/08/24 10:56 2.5 MLS/HR Fentanyl/Sodium Chloride 250 ml @ 0 mls/hr PROTOCOL IV 05/08/24 16:00 05/13/24 15:59 05/08/24 19:29 25 MLS/HR Furosemide (LASix 40MG TAB) 40 mg QODAY PO 05/11/24 09:00 05/09/24 10:23 DC Furosemide (LASix 40MG VIAL) 40 mg Q12H IV 05/08/24 09:30 06/07/24 09:29 05/10/24 08:03 40 MG Home Med (Home Medication) DAILY PO 05/10/24 09:00 06/09/24 08:59 Home Med (Home Medication) LEVOTHYROXINE 37.5 MCG 1 CAP D PO 05/09/24 11:30 06/08/24 11:29 Home Med (Home Medication) Levocetirizine Dihydrochloride 2.5 MG HS PO 05/09/24 21:00 06/08/24 20:59 Insulin Glargine (LANtus 100 UNITS/ML 10 ML VIAL) 15 units BID@0730,2100 SQ 05/08/24 21:00 06/07/24 20:59 05/10/24 06:33 15 UNITS Insulin Human Regular (humuLIN R 100 UNIT/ML 3ML) INSULIN SLIDING SCAL... Q6H6 SQ 05/08/24 18:00 06/07/24 17:59 05/10/24 06:34 8 UNIT Latanoprost (Xalatan) DAILY OP 05/10/24 09:00 05/10/24 08:17 DC Latanoprost (Xalatan) ONE GTT DAILY OP 05/10/24 09:00 06/09/24 08:59 05/10/24 09:25 1 DROP Levothyroxine Sodium (SYNTHroid VIAL 100MCG) 75 mcg DAILY@0630 IV 05/09/24 06:30 06/08/24 06:29 05/10/24 06:32 75 MCG Melatonin (Melatonin) 5 mg HS PO 05/09/24 21:00 06/08/24 20:59 05/09/24 21:05 5 MG Methylprednisolone Sodium Succinate (Solu-medROL 40MG) 40 mg BID IVP 05/08/24 21:00 06/07/24 20:59 05/10/24 08:03 40 MG Midazolam HCl 50 ml @ 0 mls/hr PROTOCOL IV 05/08/24 11:00 05/15/24 10:59 05/08/24 19:59 5 MLS/HR Midazolam HCl 50 mg/Sodium Chloride 50 ml @ 0 mls/hr PROTOCOL IV 05/08/24 11:00 05/08/24 10:57 DC Nystatin (MycoSTATin 30 GM CREAM) 1 APPL TIDP PRN TP RASH 05/09/24 10:30 06/08/24 10:29 Pantoprazole Sodium (PROTonix 40MG INJ) 40 mg DAILY IVP 05/09/24 09:00 06/08/24 08:59 05/10/24 08:03 40 MG Piperacillin Sod/ Tazobactam Sod 50 ml @ 12.5 mls/hr Q12H IV 05/08/24 05:00 05/18/24 04:59 05/10/24 06:32 12.5 MLS/HR Polyethylene Glycol (MIRalax 3350 17 GM POWD.PACK) 17 gm DAILY PO 05/09/24 09:00 06/08/24 08:59 05/10/24 08:03 17 GM Propofol (DIPRivan 1000MG/ 100ML) 1,000 mg PROTOCOL PRN IV SEDATION 05/09/24 13:30 06/08/24 13:29 05/10/24 07:21 1,000 MG Sodium Polystyrene Sulfonate (kayEXALate 15 GM/60 ML) 15 gm Q2H PO 05/08/24 04:00 05/08/24 06:01 DC 05/08/24 06:10 15 GM Sodium Zirconium Cyclosilicate (Lokelma 10gm Powder) 10 gm TID PO 05/08/24 21:00 05/09/24 20:59 DC 05/09/24 08:45 10 GM Timolol Maleate (Timoptic) 1 GGT OD AD JESSENIA AD OD 05/09/24 10:30 06/08/24 10:29 LABORATORY: [ ] Hematology Labs: Test 05/11/24 04:43 Range/Units White Blood Count 4.2 L 4.8-10.8 K/uL Red Blood Count 4.51 4.00-5.50 MIL/uL Hemoglobin 12.6 12.0-16.0 g/dL Hematocrit 39.2 36-48 % Mean Corpuscular Volume 86.9 79-99 fL Mean Corpuscular Hemoglobin 27.9 27.0-33.0 pg Mean Corpuscular Hemoglobin Concent 32.1 32.0-36.0 g/dL Red Cell Distribution Width 16.5 H 11.0-15.5 % Platelet Count 91 L 130-400 K/uL Mean Platelet Volume 11.1 H 7.5-10.5 fL Immature Granulocyte % (Auto) 7.8 H 0-1 % Neutrophils (%) (Auto) 72.6 40.0-77.0 % Lymphocytes (%) (Auto) 15.6 L 21.0-51.0 % Monocytes (%) (Auto) 3.8 3.0-13.0 % Eosinophils (%) (Auto) 0.0 0.0-8.0 % Basophils (%) (Auto) 0.2 0.0-5.0 % Neutrophils # (Auto) 3.1 1.8-7.7 K/uL Lymphocytes # (Auto) 0.7 L 1.0-4.8 K/uL Monocytes # (Auto) 0.2 0.1-1.0 K/uL Eosinophils # (Auto) 0.00 0.00-0.70 K/uL Basophils # (Auto) 0.01 0.00-0.20 K/uL Absolute Immature Granulocyte (auto 0.33 0-1 K/uL Nucleated Red Blood Cells 0.0 0.0-0.19 % Chemistry Labs: Test 05/11/24 04:43 05/10/24 23:34 05/10/24 04:11 Range/Units Sodium Level 141 136-145 mmol/L Potassium Level 3.5 3.5-5.1 mmol/L Chloride Level 99 L 101-111 mmol/L Carbon Dioxide Level 31 21-32 mmol/L Blood Urea Nitrogen 54 H 7-18 mg/dL Creatinine 2.4 H 0.5-1.0 mg/dL Glomerular Filtration Rate Calc 19 >90 mL/min Random Glucose 211 H 70-105 mg/dL Total Calcium 8.5 8.5-10.1 mg/dL Total Bilirubin 0.9 0.2-1.0 mg/dL Aspartate Amino Transf (AST/SGOT) 26 10-37 U/L Alanine Aminotransferase (ALT/SGPT) 26 12-78 U/L Alkaline Phosphatase 81 50-136 U/L Total Protein 6.2 6.0-8.3 g/dL Albumin 2.7 L 3.5-5.0 g/dL Whole Blood Glucose 148 H 70-110 MG/DL Thyroid Stimulating Hormone (TSH) 0.39 0.36-3.74 uIU/mL DIAGNOSTICS / RADIOLOGY: REASON: intubated ORDERING PHYSICIAN: VERNA ONOFRE PROCEDURE: CXR1VW - CHEST 1VW CHEST 1VW REASON: intubated COMPARISON: 05/10/2024 FINDINGS: There is been interval resolution of pulmonary vascular congestion. Heart size appears decreased as well. There is elevated right hemidiaphragm. Lungs are otherwise clear. ET and NG and PICC line remain in place. IMPRESSION: 1. Interval resolution of pulmonary vascular congestion DICTATED BY: ZAMZAM CROCKETT MD DATE: 05/11/24911 REASON: intubated ORDERING PHYSICIAN: VERNA ONOFRE PROCEDURE: CXR1VW - CHEST 1VW FRONTAL CHEST RADIOGRAPH INDICATION: intubated COMPARISON: 05/09/2024 FINDINGS/IMPRESSION: retail wireless sales representative leads overlie the field of view. Stable endotracheal tube, NG tube, and right PICC. Stable heart size and mild left greater than right-sided pulmonary vascular congestion. Unchanged bilateral perihilar atelectasis and right infrahilar consolidation, without pneumothorax. DICTATED BY: LAKISHA MINOR MD DATE: 05/10/24942 REASON: chf ORDERING PHYSICIAN: JARED QUIÑONEZ EQUIPMENT MAINTENANCE TECH PROCEDURE: ECHO CMP - ECHO 2-D COMPLETE APPROVED REPORT EXAM: Two-dimensional and M-mode echocardiogram with Doppler and color Doppler. INDICATION ICD: Heart Failure 2D Dimensions RVDd 4.1 cm LVEF(%) 48.7 (>50%) LVED Vol(simp.) 92.7 mL IVSd 0.8 (0.7-1.1cm) FS(%) 24 % LVES Vol(simp.) 37.8 mL LVDd 4.5 (3.8-5.6cm) LA (2D) 3.8 (1.6-4.0cm) LVEF(%, simp.) 59 % PWd 1.0 (0.7-1.1cm) Ao Root(2D) 3.0 (2.0-3.7cm) LA ESV INDEX (4CH) 21.80 mL/m2 IVSs 1.0 cm LVOT diam 2.0 (1.8-2.4cm) LA ESV INDEX (2CH) 31.00 mL/m2 LVDs 3.4 (2.5-4.0cm) LA ESV INDEX (BP) 27.90 mL/m2 PWs 1.5 cm M-Mode Dimensions EPSS 0.9 cm LA (MM) 4.9 (1.6-4.0cm) Ao Root(MM) 2.7 (2.0-3.7cm) Aortic Valve AoV VTI 0.3 m Ao Mean GR 3.0 mmHg LVOT VTI 0.16 m TDI Medial E' Peak V 5.50 cm/s Lateral E' Peak V 7.80 cm/s Pulmonary Valve PV Vmax 0.8 m/s PV Peak GR 2.6 mmHg Left Ventricle The left ventricle is normal size. No regional wall motion abnormalities noted. Mild concentric left ventricular hypertrophy. Left ventricle systolic function is low-normal, estimated LVEF is 50-55%. Indeterminate diastolic function. Right Ventricle The right ventricle is normal size. The right ventricular systolic function is n ormal. Atria The left atrium size is normal. The right atrium size is normal. Aortic Valve Aortic valve is probably trileaflet. The leaflets are mildly thickened and calcified. No aortic regurgitation is present. There is no aortic valvular stenosis. Mitral Valve Mild mitral annular calcification is noted. The leaflets are mildly thickened and calcified. Trace mitral regurgitation. There is no mitral valve stenosis. Tricuspid Valve The tricuspid valve is normal in structure. Trace tricuspid regurgitation. RVSP is normal. Pulmonic Valve Pulmonic valve is not well visualized. Great Vessels The aortic root is normal in size. The IVC is normal in size and collapses >50% with inspiration. Pericardium There is no pericardial effusion. Other Information Quality : Fair Conclusion The cardiac chambers are normal in size. Mild concentric left ventricular hypertrophy. No regional wall motion abnormalities noted. Left ventricle systolic function is low-normal, estimated LVEF is 50-55%. Indeterminate diastolic function. Trace mitral regurgitation. Trace tricuspid regurgitation. PASP is normal. There is no pericardial effusion. DICTATED BY: GEM WADSWORTH MD DATE: 05/08/24 1142 REASON: ams ORDERING PHYSICIAN: VERNA ONOFRE CALIBRATION TESTER PROCEDURE: HEAD WO - CT HEAD/BRAIN W/O CONTRAST CT HEAD/BRAIN W/O CONTRAST HISTORY: Altered mental status COMPARISON: None TECHNIQUE: Multiple sequential axial images of the head were obtained from the base of the skull through vertex. Patient was not given contrast through intravenous route. FINDINGS: The ventricles and extraventricular CSF spaces are dilated consistent with cerebral atrophy. Nonspecific white matter changes seen. There is no midline shift, mass effect or herniation. No acute intracranial bleed is seen. Visualized portion of the paranasal sinuses are grossly within normal limits. IMPRESSION: 1. No acute intracranial bleed is seen. 2. Atrophy with white matter changes. CT was performed with one or more following dose reduction techniques: automated exposure control, adjustment of the mA and kv according to patient's size, or use of a iterative reconstruction technique. DICTATED BY: RAKEL WELSH MD DATE: 05/08/24 1436 REASON: arf ORDERING PHYSICIAN: JARED QUIÑONEZ EQUIPMENT MAINTENANCE TECH PROCEDURE: RENAL - US RENAL SONOGRAM US RENAL SONOGRAM HISTORY: Acute renal failure COMPARISON: None TECHNIQUE: Renal and bladder ultrasound study was performed. FINDINGS: Both kidneys are not seen limiting evaluation. Bladder is poorly distended with Marley catheter. The study is limited due to patient's body habitus. IMPRESSION: 1. Both kidneys are not seen. DICTATED BY: RAKEL WELSH MD DATE: 05/08/24 0842 REASON: Dyspnea/SOB ORDERING PHYSICIAN: EMILY COREAS MD PROCEDURE: CXR1VW - CHEST 1VW CHEST 1VW HISTORY: Dyspnea and shortness of breath COMPARISON: 06/05/2019 FINDINGS: A frontal projection of the chest was obtained. Mild bilateral pulmonary infiltrates are seen may be related to mild pulmonary vascular congestion with possible superimposed pneumonitis. The heart is borderline enlarged. Poor inspiratory effort is seen. No evidence of aortic calcification is seen. IMPRESSION: 1. Mild bilateral pulmonary infiltrates are seen may be related to mild pulmonary vascular congestion with possible superimposed pneumonitis. DICTATED BY: RAKEL WELSH MD DATE: 05/07/24 191 ASSESSMENT: Acute hypercarbic respiratory failure with hypoventilation syndrome Acute renal failure Acute on chronic CHF with pulmonary edema Hyperkalemia Acute thrombocytopenia Hyperglycemia Hypothyroidism Hyperlipidemia Major Depression disorder Generalized Anxiety disorder OA Guillain Goode syndrome with paraplegia Dementia Morbidly obese PLAN: Labs, diagnostic, radiologic exams reviewed and interpreted by myself and supervising physician. We have reviewed external records in detail There is no need for renal replacement therapy at this time. Continue with NGT feeds Require close monitoring of renal function and electrolytes Order CBC, CMP, and electrolytes in am Continue with antibiotics Continue mechanical ventilation and sedation IV pressors as needed Monitor blood pressure adjust medication doses as needed Avoid hypotensive episodes May use Dilaudid 0.5 mg IV every 6 hours as needed for severe pain Monitor blood sugars Strict intake, output, and daily weight should be monitored Please renally adjust medications Avoid nephrotoxic and nonsteroidal drugs Avoid contrast if possible Will continue to monitor renal function, anemia, electrolytes Treatment plan discussed with patient Questions were answered We have discussed with the other team physicians in detail about the care plan We will continue to monitor the patient closely Total critical care time spent with patient, nursing staff, critical care team over 35 minutes ATTESTATION BY PHYSICIAN I have seen and examined the patient. I reviewed the documentation, medical decision making, and treatment plan as noted by the mid-level provider above. I agree with the findings and plan of care. ALFONZO SAMANO MD, [facility] May 11, 2024 11:47 ALFONZO SAMANO MD May 11, 2024 22:14
[2024-05-11] MEDS: dexmedeTOMIDine 400MCG/NS100ML IV ONE (19:16)
--- NOTE | 2024-05-11 22:38 | PN ---
Subjective Review of Systems PROGRESS NOTE Date of Visit: May 11, 2024 Time of Visit: 22:36 Events since last encounter PATIENT REMAINS ON VENTILATOR Subjective AWAKE AND ALERT Objective Vitals and I/O Vital Sign (Last 24 Hours) 05/07/24 05/11/24 05/11/24 05/11/24 18:48 08:00 18:02 22:26 Temp 99.0 Pulse 62 Resp 16 B/P (MAP) 122/63 Pulse Ox 99 O2 Delivery Ventilator O2 Flow Rate 10 FiO2 40 Intake & Output (last 24hrs) 05/10/24 05/10/24 05/11/24 15:00 23:00 07:00 Intake Total 237.0 ml 765.0 ml 964.1 ml Output Total 1200 ml 1500 ml Balance 237.0 ml -435.0 ml -535.9 ml General: Alert, Cooperative, Other (ON VENTILATOR WITH MORBID OBESITY) HEENT: PERRLA Neck: Supple, No thyromegaly Lungs: Other (COARSE BS) Heart: Regular rate, Regular rhythm Abdomen: No masses Extremities: No clubbing, No cyanosis, No edema Results RADIOLOGY: [] EKG: [] Laboratory Tests Test 05/10/24 23:34 05/11/24 03:58 05/11/24 04:43 05/11/24 11:19 Whole Blood Glucose 148 MG/DL (70-110) H Blood Gas Specimen Type Arterial Arterial Arterial Blood pH 7.550 (7.350-7.450) 7.415 (7.350-7.450) Arterial Blood Partial Pressure CO2 33 mmHg (32-45) 49 mmHg (32-45) H Arterial Blood Partial Pressure O2 76.9 mmHg (83.0-108.0) L 92.0 mmHg (83.0-108.0) Arterial Blood HCO3 28.1 mmol/L (21.0-28.0) H 30.6 mmol/L (21.0-28.0) H Arterial Blood Oxygen Saturation 96.8 % (94.0-98.0) 97.1 % (94.0-98.0) Arterial Blood Base Excess 6.0 mmol/L (-2.0-3.0) H 4.9 mmol/L (-2.0-3.0) H Blood Gas Temperature 37.0 CELSIUS (35.5-37.0) 37.0 CELSIUS (35.5-37.0) Blood Gas Respiration Rate 22.0 min. Blood Gas Vent Mode ACVC (ROOM AIR) CPAP 5,5 (ROOM AIR) FiO2 40.0 % 40.0 % Blood Gas Tidal Volume 400 ml Blood Gas PEEP 6 cm H2O Blood Gas Specimen Comment RR RN KAREEM RN [place] White Blood Count 4.2 K/uL (4.8-10.8) L Red Blood Count 4.51 MIL/uL (4.00-5.50) Hemoglobin 12.6 g/dL (12.0-16.0) Hematocrit 39.2 % (36-48) Mean Corpuscular Volume 86.9 fL (79-99) Mean Corpuscular Hemoglobin 27.9 pg (27.0-33.0) Mean Corpuscular Hemoglobin Concent 32.1 g/dL (32.0-36.0) Red Cell Distribution Width 16.5 % (11.0-15.5) H Platelet Count 91 K/uL (130-400) L Mean Platelet Volume 11.1 fL (7.5-10.5) H Immature Granulocyte % (Auto) 7.8 % (0-1) H Neutrophils (%) (Auto) 72.6 % (40.0-77.0) Lymphocytes (%) (Auto) 15.6 % (21.0-51.0) L Monocytes (%) (Auto) 3.8 % (3.0-13.0) Eosinophils (%) (Auto) 0.0 % (0.0-8.0) Basophils (%) (Auto) 0.2 % (0.0-5.0) Neutrophils # (Auto) 3.1 K/uL (1.8-7.7) Lymphocytes # (Auto) 0.7 K/uL (1.0-4.8) L Monocytes # (Auto) 0.2 K/uL (0.1-1.0) Eosinophils # (Auto) 0.00 K/uL (0.00-0.70) Basophils # (Auto) 0.01 K/uL (0.00-0.20) Absolute Immature Granulocyte (auto 0.33 K/uL (0-1) Nucleated Red Blood Cells 0.0 % (0.0-0.19) Sodium Level 141 mmol/L (136-145) Potassium Level 3.5 mmol/L (3.5-5.1) Chloride Level 99 mmol/L (101-111) L Carbon Dioxide Level 31 mmol/L (21-32) Blood Urea Nitrogen 54 mg/dL (7-18) H Creatinine 2.4 mg/dL (0.5-1.0) H Glomerular Filtration Rate Calc 19 mL/min (>90) Random Glucose 211 mg/dL (70-105) H Total Calcium 8.5 mg/dL (8.5-10.1) Total Bilirubin 0.9 mg/dL (0.2-1.0) Aspartate Amino Transf (AST/SGOT) 26 U/L (10-37) Alanine Aminotransferase (ALT/SGPT) 26 U/L (12-78) Alkaline Phosphatase 81 U/L (50-136) Total Protein 6.2 g/dL (6.0-8.3) Albumin 2.7 g/dL (3.5-5.0) L Test 05/11/24 12:48 Whole Blood Glucose 113 MG/DL (70-110) H Medications Current Medications Methylprednisolone Sodium Succinate 120 mg ONCE ONCE IVP Last administered on 05/07/24 19:18; Start 05/07/24 at 19:00; Stop 05/07/24 at 19:01; Status DC Albuterol 1 UDVIAL ONCE ONCE IH Last administered on 05/07/24at 19:02; Start 05/07/24 at 19:00; Stop 05/07/24 at 19:01; Status DC Piperacillin Sod/ Tazobactam Sod 3.375 gm ONCE ONCE IVPB Last administered on 05/07/24at 19:18; Start 05/07/24 at 19:00; Stop 05/07/24 at 19:01; Status DC Calcium Gluconate 1 gm/Sodium Chloride 110 ml @ 110 mls/hr ONCE ONCE IV Last administered on 05/07/24at 19:58; Start 05/07/24 at 19:30; Stop 05/07/24 at 20:29; Status DC Dextrose 25 gm ONCE ONCE IV Last administered on 05/07/24at 19:59; Start 05/07/24 at 19:30; Stop 05/07/24 at 19:31; Status DC Insulin Human Regular 5 unit ONCE ONCE IV Last administered on 05/07/24at 19:59; Start 05/07/24 at 19:30; Stop 05/07/24 at 19:31; Status DC Albuterol Sulfate 10 mg ONCE IH Last administered on 05/07/24at 20:32; Start 05/07/24 at 19:30; Stop 05/08/24 at 07:02; Status DC Furosemide 20 mg ONCE ONCE IV Last administered on 05/07/24at 19:58; Start 05/07/24 at 20:00; Stop 05/07/24 at 20:06; Status DC Calcium Gluconate 1 gm STK-MED ONCE .ROUTE; Start 05/07/24 at 19:45; Stop 05/07/24 at 19:45; Status DC Dextrose 50 ml STK-MED ONCE IV; Start 05/07/24 at 19:46; Stop 05/07/24 at 19:46; Status DC Lorazepam 1 mg ONCE ONCE IVP Last administered on 05/07/24at 20:18; Start 05/07/24 at 20:30; Stop 05/07/24 at 20:31; Status DC Albuterol 1 udvial [id number] IH Last administered on 05/11/24at 22:25; Start 05/08/24 at 02:00; Stop 06/07/24 at 01:59 Piperacillin Sod/ Tazobactam Sod 50 ml @ 12.5 mls/hr Q12H IV Last administered on 05/10/24at 06:32; Start 05/08/24 at 05:00; Stop 05/10/24 at 10:39; Status DC Sodium Bicarbonate 50 meq ONCE ONCE IV Last administered on 05/08/24at 00:10; Start 05/08/24 at 00:00; Stop 05/08/24 at 00:01; Status DC Sodium Polystyrene Sulfonate 15 gm ONCE ONCE PO Last administered on 05/08/24at 00:00; Start 05/08/24 at 00:00; Stop 05/08/24 at 00:01; Status DC Calcium Gluconate 1 gm/Sodium Chloride 110 ml @ 110 mls/hr ONCE ONCE IV Last administered on 05/08/24at 04:27; Start 05/08/24 at 04:00; Stop 05/08/24 at 04:59; Status DC Albuterol Sulfate 10 mg ONCE IH; Start 05/08/24 at 04:00; Stop 05/08/24 at 07:02; Status DC Sodium Polystyrene Sulfonate 15 gm Q2H PO Last administered on 05/08/24at 06:10; Start 05/08/24 at 04:00; Stop 05/08/24 at 06:01; Status DC Sodium Bicarbonate 50 meq ONCE ONCE IV Last administered on 05/08/24at 04:27; Start 05/08/24 at 04:00; Stop 05/08/24 at 04:01; Status DC Insulin Human Regular 10 unit ONCE ONCE IV Last administered on 05/08/24at 04:28; Start 05/08/24 at 04:00; Stop 05/08/24 at 04:01; Status DC Dextrose 50 ml ONCE ONCE IV Last administered on 05/08/24at 04:27; Start 05/08/24 at 04:00; Stop 05/08/24 at 04:01; Status DC Calcium Gluconate 1 gm STK-MED ONCE .ROUTE; Start 05/08/24 at 04:05; Stop 05/08/24 at 04:05; Status DC Furosemide 40 mg Q12H IV Last administered on 05/10/24at 08:03; Start 05/08/24 at 09:30; Stop 05/10/24 at 10:32; Status DC Levothyroxine Sodium 75 mcg DAILY@0630 IV Last administered on 05/11/24at 06:36; Start 05/09/24 at 06:30; Stop 06/08/24 at 06:29 Insulin Human Regular 5 unit ONCE ONCE IV Last administered on 05/08/24at 10:58; Start 05/08/24 at 10:30; Stop 05/08/24 at 10:31; Status DC Dextrose 25 ml ONCE ONCE IV Last administered on 05/08/24at 10:49; Start 05/08/24 at 10:30; Stop 05/08/24 at 10:31; Status DC Sodium Zirconium Cyclosilicate 10 gm ONCE ONCE PO Last administered on 05/08/24at 11:04; Start 05/08/24 at 10:30; Stop 05/08/24 at 10:31; Status DC Fentanyl Citrate 100 mcg STK-MED ONCE .ROUTE; Start 05/08/24 at 10:34; Stop 05/08/24 at 10:34; Status DC Fentanyl Citrate 100 ml @ As Directed STK-MED ONCE IV; Start 05/08/24 at 10:38; Stop 05/08/24 at 10:38; Status DC Midazolam HCl 50 ml @ 0 mls/hr PROTOCOL IV Last administered on 05/08/24at 19:59; Start 05/08/24 at 11:00; Stop 05/15/24 at 10:59 Fentanyl Citrate 100 ml @ 0 mls/hr PROTOCOL IV Last administered on 05/08/24at 10:56; Start 05/08/24 at 11:00; Stop 05/08/24 at 15:45; Status DC Fentanyl Citrate 100 mcg ONCE ONCE IVP Last administered on 05/08/24at 10:45; Start 05/08/24 at 11:00; Stop 05/08/24 at 11:01; Status DC Fentanyl Citrate 100 ml @ 2.5 mls/hr PROTOCOL IV; Start 05/08/24 at 11:00; Stop 05/08/24 at 10:56; Status DC Midazolam HCl 50 mg/Sodium Chloride 50 ml @ 0 mls/hr PROTOCOL IV; Start 05/08/24 at 11:00; Stop 05/08/24 at 10:57; Status DC Chlorhexidine Gluconate 15 ml Q8H MM Last administered on 05/11/24at 20:12; Start 05/08/24 at 11:00; Stop 05/22/24 at 10:59 Artificial Tears 1 DROP OR AD Q4H4 OU Last administered on 05/11/24at 20:12; Start 05/08/24 at 12:00; Stop 06/07/24 at 11:59 Doxycycline Hyclate 250 ml @ 125 mls/hr Q12H IV Last administered on 05/10/24at 01:00; Start 05/08/24 at 11:00; Stop 05/10/24 at 10:39; Status DC Rocuronium [place] 50 mg STK-MED ONCE IV; Start 05/07/24 at 13:32; Stop 05/08/24 at 13:32; Status DC Etomidate 20 mg STK-MED ONCE IVP; Start 05/07/24 at 13:32; Stop 05/08/24 at 13:32; Status DC Pantoprazole Sodium 40 mg DAILY IVP Last administered on 05/11/24at 08:38; Start 05/09/24 at 09:00; Stop 06/08/24 at 08:59 Methylprednisolone Sodium Succinate 40 mg BID IVP Last administered on 05/11/24at 20:12; Start 05/08/24 at 21:00; Stop 06/07/24 at 20:59 Polyethylene Glycol 17 gm DAILY PO Last administered on 05/11/24at 08:40; Start 05/09/24 at 09:00; Stop 06/08/24 at 08:59 Sodium Zirconium Cyclosilicate 10 gm TID PO Last administered on 05/09/24at 08:45; Start 05/08/24 at 21:00; Stop 05/09/24 at 20:59; Status DC Insulin Human Regular INSULIN SLIDING SCAL... Q6H6 SQ Last administered on 05/11/24at 06:37; Start 05/08/24 at 18:00; Stop 06/07/24 at 17:59 Insulin Glargine 15 units BID@0730,2100 SQ Last administered on 05/11/24at 20:14; Start 05/08/24 at 21:00; Stop 06/07/24 at 20:59 Fentanyl/Sodium Chloride 250 ml @ 0 mls/hr PROTOCOL IV Last administered on 05/08/24at 19:29; Start 05/08/24 at 16:00; Stop 05/13/24 at 15:59 Dopamine HCl/ Dextrose 250 ml @ 0 mls/hr PROTOCOL PRN IV; Start 05/09/24 at 09:30; Stop 06/08/24 at 09:29 Dopamine HCl/ Dextrose 250 ml @ As Directed STK-MED ONCE IV; Start 05/09/24 at 09:24; Stop 05/09/24 at 09:24; Status DC Furosemide 40 mg QODAY PO; Start 05/11/24 at 09:00; Stop 05/09/24 at 10:23; Status DC Nystatin 1 APPL TIDP PRN TP; Start 05/09/24 at 10:30; Stop 06/08/24 at 10:29 Timolol Maleate 1 GGT OD AD TOD AD OD; Start 05/09/24 at 10:30; Stop 06/08/24 at 10:29 Home Med DAILY PO; Start 05/10/24 at 09:00; Stop 06/09/24 at 08:59 Latanoprost DAILY OP; Start 05/10/24 at 09:00; Stop 05/10/24 at 08:17; Status DC Home Med Levocetirizine Dihydrochloride 2.5 MG HS PO Last administered on 05/10/24at 20:41; Start 05/09/24 at 21:00; Stop 06/08/24 at 20:59 Melatonin 5 mg HS PO Last administered on 05/11/24at 20:12; Start 05/09/24 at 21:00; Stop 06/08/24 at 20:59 Atorvastatin Calcium 5 mg HS PO Last administered on 05/11/24at 20:13; Start 05/09/24 at 21:00; Stop 06/08/24 at 20:59 Home Med LEVOTHYROXINE 37.5 MCG 1 CAP D PO; Start 05/09/24 at 11:30; Stop 06/08/24 at 11:29 Propofol 1,000 mg PROTOCOL PRN IV Last administered on 05/11/24at 06:41; Start 05/09/24 at 13:30; Stop 06/08/24 at 13:29 Latanoprost ONE GTT DAILY OP Last administered on 05/11/24at 08:40; Start 05/10/24 at 09:00; Stop 06/09/24 at 08:59 Cefepime HCl 1 gm Q24H IVPB Last administered on 05/11/24at 12:40; Start 05/10/24 at 11:00; Stop 05/20/24 at 10:59 Vancomycin HCl 1 each AD IV; Start 05/10/24 at 11:00; Stop 05/10/24 at 12:58; Status DC Metronidazole/ Sodium Chloride 100 ml @ 100 mls/hr Q8H6 IVPB Last administered on 05/11/24at 20:14; Start 05/10/24 at 14:00; Stop 05/20/24 at 13:59 Vancomycin HCl 250 ml @ 83.333 mls/ hr ONCE ONCE IV; Start 05/10/24 at 12:00; Stop 05/10/24 at 14:59; Status DC Doxycycline Hyclate 100 mg BID PO Last administered on 05/11/24at 20:35; Start 05/11/24 at 09:00; Stop 05/19/24 at 08:59 Dexmedetomidine/ Sodium Chloride 400 mcg STK-MED ONCE IV Last administered on 12/8/24at 19:16; Start 05/11/24 at 15:04; Stop 05/11/24 at 15:05; Status DC Dexmedetomidine/ Sodium Chloride 400 mcg PROTOCOL IV; Start 05/11/24 at 15:30; Stop 06/10/24 at 15:29 Assessment/Plan ASSESSMENT: THIS IS A 88 YR OLD WOMAN WITH HISTORY OF COPD BILAT LOWER EXTREMITY 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 Major depressive disorder, single episode, moderate MUSCLE SPASTICITY 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 HYPERLIPIDEMIA HYPOTHYROIDISM MORBID OBESITY : BMI 44.9 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, DUE TO LUNG DISEASE OBSTRUCTIVE SLEEP 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 ANXIETY D/O HH AND RENAL DIS /CKD 3 W SERRANO CHF SHE PRESENTED WITH ACUTE HYPERCAPNIC RESPIRATORY FAILURE REQUIRING MECHANICAL VENTILATION ACUTE RENAL FAILURE WITH HYPERKALEMIA ACUTE CHF THROMBOCYTOPENIA PNEUMONIA PLAN: WEANING FROM VENTILATOR WEANING WITH INTERMITTENT CPAP TRIALS OFF PRESSORS ON CEFEPIME AND METRONIDAZOLE CULTURES NGTD WEANING IV STEROIDS CONT NEBS CONT ADDITIONAL INSULIN NEEDED MONITORING AND SUPPLEMENTING ELECTROLYTES NEEDED DVT PROPHYLAXIS W TEDS AND SCD STRESS ULCER PROPHYLAXIS W PPI CODE STATUS ESTABLISHED A DNR ONCE EXTUBATED, FAMILY DOES NOT WANT HER RE- INTUBATED AND WILLING TO RETURN TO HOSPICE CARE NEEDED SPOKE WITH DAUGHTER OVER THE PHONE AND IN AGREEMENT WITH CURRENT PLAN OF CARE SALLIE MOTA MD May 11, 2024 22:38
[2024-05-11] MEDS: dexmedeTOMIDine 400MCG/NS100ML IV SCH (23:23)
[2024-05-12] VITALS (33 sets, daily range): BP systolic 115–159; BP diastolic 46–79; PULSE 48–96; RESP 13–45; TEMP 96.5–97.9; O2SAT 94–100
[2024-05-12 03:01] LABS: ABG BASE EXCESS 6.4 mmol/L (-2.0-3.0); ABG HCO3 31.7 mmol/L (21.0-28.0); ABG OXYGEN SATURATION 93.6 % (94.0-98.0); ABG PCO2 49 mmHg (32-45); ABG PH 7.432 (7.350-7.450); CARBON MONOXIDE 0.7 % (0.5-1.5); HHb 6.3; PO2, ARTERIAL BG 73.9 mmHg (83.0-108.0); VENT MODE, BG RR ACVC (ROOM AIR)
[2024-05-12 03:52] LABS: BASOPHILS # (AUTO) 0.01 K/uL (0.00-0.20); BASOPHILS % (AUTO) 0.2 % (0.0-5.0); HEMATOCRIT 35.5 % (36-48); IMMATURE GRANULOCYTE ABSOLUTE 0.34 K/uL (0-1); LYMPHOCYTES # (AUTO) 0.6 K/uL (1.0-4.8); LYMPHOCYTES % (AUTO) 11.5 % (21.0-51.0); MEAN CORPUSCULAR HEMOGLOBIN 27.8 pg (27.0-33.0); MEAN CORPUSCULAR HGB CONC 31.8 g/dL (32.0-36.0); MEAN CORPUSCULAR VOLUME 87.2 fL (79-99); MONOCYTES # (AUTO) 0.2 K/uL (0.1-1.0); MONOCYTES % (AUTO) 3.5 % (3.0-13.0); NEUTROPHILS # (AUTO) 4.2 K/uL (1.8-7.7); NEUTROPHILS % (AUTO) 78.5 % (40.0-77.0); PLATELET COUNT (AUTO) 76 K/uL (130-400); RED BLOOD CELL COUNT(AUTO) 4.07 MIL/uL (4.00-5.50); RED CELL DISTRIBUTION WIDTH 16.2 % (11.0-15.5); WHITE BLOOD COUNT (AUTO) 5.4 K/uL (4.8-10.8)
--- NOTE | 2024-05-12 03:52 | PN ---
INFECTIOUS DISEASE FOLLOWUP NOTE SUBJECTIVE: The patient is an 88-year-old female who is seen and examined at bedside. No fever or chills. The patient is awake and alert. She remain on ventilatory support. No documented diarrhea or vomiting. The patient's daughter was updated at the bedside. PHYSICAL EXAMINATION: VITAL SIGNS: Temperature 98.6. EYES: No icterus. Pupils equal and reactive. HENT: Orally intubated, ventilatory support. NECK: Supple, no JVD or thyromegaly. LUNGS: Good air entry. Crackles bilaterally. CARDIOVASCULAR: S1, S2, regular. No murmur heard. ABDOMEN: Morbidly obese, soft. Bowel sounds present. CENTRAL NERVOUS SYSTEM: The patient is awake, bedbound, following commands. SKIN: No rashes, no itchiness. LYMPHATIC: No peripheral lymphadenopathy. BACK: No deformity. MUSCULOSKELETAL: No joint swelling, erythema, or tenderness. ASSESSMENT: An 88-year-old female with multiple problems include: 1. Pneumonia. 2. Hypoxic respiratory failure. 3. Hypothyroidism. 4. Renal failure. 5. Dementia. 6. Obesity. PLAN: 1. Continue cefepime. 2. Continue Flagyl. 3. Continue Solu-Medrol. 4. Continue ventilatory support. 5. Continue critical care support. 6. Continue DVT prophylaxis. 7. Continue physical therapy. TID: [id number] RECEIPT: [id number] MTD
[2024-05-12 04:10] LABS: ALBUMIN 2.4 g/dL (3.5-5.0); BILIRUBIN,TOTAL 0.6 mg/dL (0.2-1.0); CREATININE 1.9 mg/dL (0.5-1.0); POTASSIUM 3.6 mmol/L (3.5-5.1); TOTAL PROTEIN, SERUM 5.5 g/dL (6.0-8.3)
[2024-05-12 04:52] LABS: LYMPHOCYTES % (MANUAL) 14 % (22-44); MAN.DIFF COMMENT-IMPRESSION MANUAL DIFFERENTIAL; MONOCYTES % (MANUAL) 4 % (2-9); PLATELET MORPHOLOGY COMMENT DECREASED; SEGMENTED NEUTROPHILS % 82 % (40-70); TOTAL CELLS COUNTED 100; WBC MORPHOLOGY CONSISTENT W/DIFF
--- NOTE | 2024-05-12 09:13 | PN ---
SUBJECTIVE: An 88-year-old female with a history of known sleep apnea. The patient initially admitted with underlying respiratory distress requiring mechanical ventilation. The patient has had acute renal failure in the hospital. The patient's creatinine has actually stabilized. Urine output is slowly improving. The patient is being weaned from the ventilator. She is a DNR per family request and the patient is being seen as a followup visit for all the above. I did discuss the case in detail with the patient's family. REVIEW OF SYSTEMS: She is intubated in the ICU. OBJECTIVE: VITAL SIGNS: Blood pressure 119/46, pulse in the 60s. GENERAL: Chronically ill female, obese, lying in bed, on medical floor. HEENT: Head is atraumatic. Pupils equal, roving to light. Oropharynx is without exudate. Nares clear. NECK: There is no JVP. There is no thyromegaly, no mass. CARDIOVASCULAR: Regular. There is no S3, S4 gallop. LUNGS: Coarse with equal thoracic movement. ABDOMEN: Soft, nondistended, nontender. EXTREMITIES: Reveal no clubbing, no cyanosis. NEUROLOGIC: She is much more awake and alert on the ventilator. LABORATORY DATA: Hemoglobin 11, hematocrit 35. Sodium 144, BUN 23, creatinine is 1.9. IMPRESSION: * Acute renal failure. * Respiratory distress, on the ventilator. * Diabetes mellitus. * Electrolyte abnormalities. PLAN: The patient's creatinine continues to stabilize. Urine output has improved. The patient is being weaned from the ventilator. The patient is a DNR per family request. The patient's family at the bedside, multiple questions were all answered. TID: [id number] RECEIPT: [id number]
--- NOTE | 2024-05-12 09:19 | NUR ---
DO NOT RE-INTUBATE PATIENT AFTER EXTUBATION PER FAMILY WISHES. Ana ONOFRE NP SPOKE WITH FAMILY TO CONFIRM. FAMILY SIGNED NO RE-INTUBATION ON DNR FORM.
--- NOTE | 2024-05-12 09:24 | HMCIMG ---
CHEST 1VW REASON: intubated COMPARISON: 05/11/2024 FINDINGS: Heart size is stable. There is no pulmonary vascular congestion. Right hemidiaphragm is elevated, unchanged. ET tube is in good position 3.8 cm above the taty. NG and PICC line remain in place as well. IMPRESSION: 1. Tubes and lines in good position, no interval change.
[2024-05-12 09:34] LABS: ABG BASE EXCESS 5.7 mmol/L (-2.0-3.0); ABG HCO3 31.6 mmol/L (21.0-28.0); ABG OXYGEN SATURATION 96.7 % (94.0-98.0); ABG PCO2 52 mmHg (32-45); ABG PH 7.405 (7.350-7.450); CARBON MONOXIDE 0.8 % (0.5-1.5); CPAP, BG 5 cm H2O; DEVICE COMMENT LEO LVN LR; HHb 3.3; PO2, ARTERIAL BG 96.2 mmHg (83.0-108.0); VENT MODE, BG CPAP PS 5 (ROOM AIR)
--- NOTE | 2024-05-12 10:46 | PN ---
[facility] PROGRESS NOTE Date Patient Seen: May 12, 2024 Time of Visit: 10:35 Supervising Physician: Arturo Garnett MD Primary Care Physician: Attending team: [facility] hospitalist team. Outpatient Specialists: Inpatient Consults: [facility], critical Care team Nephrology PROBLEM LIST: Acute hypercarbic respiratory failure with hypoventilation syndrome POA requiring intubation in 05/08/24, extubated 1210/24 Acute renal failure, POA Critically elevated hyperkalemia, POA Acute on chronic CHF with pulmonary edema POA Acute thrombocytopenia POA (suspect myelodysplastic syndrome) Hyperglycemia POA Hypothyroidism Hyperlipidemia POA Major depression disorder POA Generalized anxiety disorder POA Guillain Eden syndrome with paraplegia, POA Dementia POA Morbidly obese POA INTERVAL HISTORY: [05/08/2024-patient was assessed in the emergency department, she is awake but confused GCS of 13 currently on BiPAP 20/ with a FiO2 of 40% respiratory rate of 26 saturating 95% but ABGs worsening pH of 7.129 pCO2 of 103 PO2 of 79.9 and bicarb of 33.5. CBC similar to yesterday platelet count improved slightly 26978 today. Chemistry sodium was 146 potassium is 5.8 covered with Lokelma and 5 units of regular insulin IV push with half an amp of D50 BUN 39 creatinine 2.3 and GFR of 20 glucose 196 mg/dL total calcium 7.9 albumin 2.4 and total protein 5.9. Chest x-ray no pneumothorax or pleural effusion. Bilateral pulmonary vascular congestion noted with possible superimposed pneumonitis. CT of the head showed no acute intracranial bleed seen. Atrophy with white matter changes. Pending a 2D echo. Discussed goals of care with daughters and they requested full code including intubation at this time. Decision was made to intubate and both in agreement. 05/09/24- no major overnight events patient started on sedation vacation today following commands. Failed spontaneous breathing trials with pressure support of 10. We will try again tomorrow. She has been afebrile with a episodes of bradycardia in the 50s but hemodynamically stable heart rate earlier this morning in the 40s prior to sedation vacation while off sedation patient's heart rate increased to 70s and 80s blood pressure 162/71 with saturation 95% with FiO2 of 40% on the vent with settings of assist control volume control tidal volume 400 respiratory rate of 22 FiO2 of 60 and PEEP of 5. This morning ABGs was pH of 7.46 pCO2 of 47 PO2 of 90.9 bicarb of 97.3 attempted spontaneous breathing trials CO2 increased to 64 pH dropped to 7.33 and decided to put patient back on assist-control volume control previous settings. Respiratory culture growing Gram-positive cocci in chains and clusters. Patient has good urine output 3 L in the last 24 hours with a balance of-2.4 L. On laboratory WBCs 4.7 decreased from yesterday with 27 platelet count slightly decreased 73967 today. Chemistries sodium 146 carbon dioxide is 36 BUN of 48 creatinine of 2.6 and GFR of 17 glucose 155 mg/dL total calcium 8.2 CRP 67.2 any total protein 5.7 albumin 2.4 on chest x-ray bilateral pulmonary infiltrates are seen suggestive of pulmonary vascular congestion with possible superimposed Humira very minimal improvement ET tube above the taty approximately 3 cm. 05/10/24-per RN patient gets bradycardic when sedated overnight and was started on dopamine drip weaned off this morning. patient is on sedation vacation following commands but has been failing spontaneous breathing trials. We will try daily SBT's and daily sedation vacation. She has been afebrile with a T-max of 98.1 and a T low of 97.0. Urine output 3.3 L in the last 24 hours with a balance of -678 mL. WBCs similar to yesterday 3.7 H&H is 11.9/36.9 similar to yesterday platelet count slightly improving 31013 neutrophils normalized. Creatinine seems stable 2.5 and GFR 18 with a BUN of 51. On ABG pH of 7.55 pCO2 of 33 PO2 of 60.3 bicarb of 29. Lasix is on hold suspected contraction alkalosis, with a cumulative balance of-3.2 L patient continues with Flagyl cefepime and doxy. Sinus x-ray, [address], NG tube and right PICC line in good positions. Stable heart size and mild left greater than right- sided pulmonary vascular congestion unchanged bilateral perihilar atelectasis in the right infrahilar sedation without pneumothorax. 05/11-05/11-placed on sedation with propofol overnight this morning propofol was removed. She is following commands and awake. Trying SBT again this morning. She was restarted on dopamine drip overnight due to bradycardia likely from sedation. Weaning down dopamine drip this morning heart rate is 90 blood pressure 127/57 respiratory rate of 18 saturating 99%. Patient has been afebrile with a T-max of 98.1 and a T low of 97.3. Blood pressure this morning 124/61 heart rate in the 80s respiratory rate of 14 saturating 99% with FiO2 of 40% on the ventilator with settings as follows: Assist-control volume control tidal volume of 400 respiratory rate of 22 FiO2 of 50% and PEEP of. Urine output 2.7 L I&O balance magnum 659 with one bowel movement overnight. On laboratory WBCs are 4.2 H&H is normal neutrophils normalized 72.6. On chemistries sodium is 141 potassium is 3.5 chloride 90 BUN 54 creatinine 2.4 GFR 19 seems to be stable albumin 2.7. On ABG improvement to alkalosis. Pt tolerating SBT's we will continue with the rest of the day with pt on CPAP and tomorrow recheck ABG's and extubate if meets criteria. I have spoken to daughter and she wishes not to reintubate her mother if she fails extubation. 05/12/24-patient is on sedation vacation awake alert and following commands. Continues on CPAP trials with pressure support of five and tolerating well. NIP of -20.1, on ABG pH of 7.40 pCO2 of 52 PO2 96.2 and a bicarb of 31.6 consistent with her baseline of chronic hypercapnic respiratory failure. We will plan to extubate today. Patient can keep on BiPAP p.r.n. and q.h.s.. WBCs 5.4 H&H is 11.3/35[place]5 [place] [address]. Sodium 144, carbon dioxide of 33 BUN of 53 creatinine of 1.9 with GFR of 25 much improvement empiric to initial creatinine of 2.5 on admission. Glucose 198 mg/dL total protein 5.5 and albumin of 2.4. REVIEW OF SYSTEMS: Unable to obtain ROS from patient due intubated. PHYSICAL EXAM: GENERAL: Pt awake following commands on SBT's tolerating/ HEENT: Sclera non icteric, moist mucosa NECK: Supple, no JVD, trachea midline LUNGS: Clear breath sounds bilaterally. No wheezes HEART: Regular rate and rhythm. Normal S1 and S2, without murmurs ABD: Abdomen soft, obese, nontender. 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 NEURO: Intubated off sedation but on CPAP trials. Hx of Guillain-Eden with weakness to lower extremeties at baseline and bed bound status Vital Signs (last 8hr) Date Time Temp Pulse Resp B/P (MAP) Pulse Ox O2 Delivery O2 Flow Rate FiO2 05/12/24 10:21 75 20 05/12/24 10:00 73 20 146/57 100 Aerosol Face Mask 40 05/12/24 09:50 71 20 10.0 40 05/12/24 09:04 66 40 05/12/24 09:00 72 15 129/49 98 Ventilator 40 05/12/24 08:00 68 45 119/46 97 Ventilator 40 05/12/24 07:56 96.4 05/12/24 07:54 96 Ventilator+ 40 05/12/24 07:00 67 15 117/50 97 Ventilator 40 05/12/24 06:17 67 18 05/12/24 06:16 67 40 05/12/24 06:00 62 13 133/60 95 Ventilator 40 05/12/24 05:00 48 18 116/48 95 Ventilator 40 05/12/24 04:00 94 Ventilator+ 40 05/12/24 04:00 97.2 48 18 121/47 99 Ventilator 40 05/12/24 03:00 58 19 115/47 95 Ventilator 40 05/12/24 02:37 60 40 LABS: Hematology Labs: Test 05/12/24 03:30 Range/Units White Blood Count 5.4 # 4.8-10.8 K/uL Red Blood Count 4.07 4.00-5.50 MIL/uL Hemoglobin 11.3 L 12.0-16.0 g/dL Hematocrit 35.5 L 36-48 % Mean Corpuscular Volume 87.2 79-99 fL Mean Corpuscular Hemoglobin 27.8 27.0-33.0 pg Mean Corpuscular Hemoglobin Concent 31.8 L 32.0-36.0 g/dL Red Cell Distribution Width 16.2 H 11.0-15.5 % Platelet Count 76 L 130-400 K/uL Mean Platelet Volume 11.5 H 7.5-10.5 fL Immature Granulocyte % (Auto) 6.3 H 0-1 % Neutrophils (%) (Auto) 78.5 H 40.0-77.0 % Lymphocytes (%) (Auto) 11.5 L 21.0-51.0 % Monocytes (%) (Auto) 3.5 3.0-13.0 % Eosinophils (%) (Auto) 0.0 0.0-8.0 % Basophils (%) (Auto) 0.2 0.0-5.0 % Neutrophils # (Auto) 4.2 1.8-7.7 K/uL Lymphocytes # (Auto) 0.6 L 1.0-4.8 K/uL Monocytes # (Auto) 0.2 0.1-1.0 K/uL Eosinophils # (Auto) 0.00 0.00-0.70 K/uL Basophils # (Auto) 0.01 0.00-0.20 K/uL Absolute Immature Granulocyte (auto 0.34 0-1 K/uL Segmented Neutrophils % 82 H 40-70 % Lymphocytes % (Manual) 14 L 22-44 % Monocytes % (Manual) 4 2-9 % Nucleated Red Blood Cells 0.0 0.0-0.19 % Differential Comment MANUAL DIFFERENTIAL White Cell Morphology Comment CONSISTENT W/DIFF Platelet Morphology Comment DECREASED Red Blood Cell Morphology See comments Chemistry Labs: Test 05/12/24 03:30 05/11/24 23:45 Range/Units Sodium Level 144 136-145 mmol/L Potassium Level 3.6 3.5-5.1 mmol/L Chloride Level 104 101-111 mmol/L Carbon Dioxide Level 33 H 21-32 mmol/L Blood Urea Nitrogen 53 H 7-18 mg/dL Creatinine 1.9 H 0.5-1.0 mg/dL Glomerular Filtration Rate Calc 25 >90 mL/min Random Glucose 198 H 70-105 mg/dL Total Calcium 8.0 L 8.5-10.1 mg/dL Total Bilirubin 0.6 # 0.2-1.0 mg/dL Aspartate Amino Transf (AST/SGOT) 22 10-37 U/L Alanine Aminotransferase (ALT/SGPT) 26 12-78 U/L Alkaline Phosphatase 67 50-136 U/L Total Protein 5.5 L 6.0-8.3 g/dL Albumin 2.4 L 3.5-5.0 g/dL Whole Blood Glucose 150 H 70-110 MG/DL DIAGNOSTICS / RADIOLOGY RESULTS: IMAGING REPORT Signed PATIENT: TEMITOPE ROBBINS MR#: [id number] : 1935 SEX: F AGE: 88 LOCATION: 2CH ORDER 230 STATUS: ADM IN REPORT#: [id number] SERVICE 0600 REASON: intubated ORDERING PHYSICIAN: VERNA ONOFRE PROCEDURE: CXR1VW - CHEST 1VW CHEST 1VW REASON: intubated COMPARISON: 05/11/2024 FINDINGS: Heart size is stable. There is no pulmonary vascular congestion. Right hemidiaphragm is elevated, unchanged. ET tube is in good position 3.8 cm above the taty. NG and PICC line remain in place as well. IMPRESSION: 1. Tubes and lines in good position, no interval change. DICTATED BY: ZAMZAM CROCKETT MD DATE: 05/12/24920 ELECTRONICALLY SIGNED BY: ZAMZAM CROCKETT MD DATE: 05/12/24923 PLAN Continue ICU care Follow ABGs and adjust ventilator settings as needed. Albuterol and Atrovent nebulizer treatment scheduled. Continue antibiotic therapy: defepime and doxy for CAP coverage follow ID recs Continue Lasix 40 mg IV daily. Follow Nephrology recommendations. Monitor electrolytes and cover accordingly. Monitor renal and liver function. Daily sedation vacation GI and DVT prophylaxis. Patient is DNR and do not reintubate. If patient fails extubation per daughter we will like to make her comfort measures and not reintubate. NEURO: Minimize central acting medications as possible. Fall Precautions. Well lighted room through the day and minimize interruptions through the night to prevent acute delirium. CT of the head ruled out intracranial bleed due to altered mental status PULMONARY: Supplemental 02 as needed Titrate Fio2 to keep Spo2 > or = 90% DuoNebs and CPT as needed IS hourly while awake for pulmonary hygiene Out of bed to chair as tolerated VAP Bundle Ventilator settings assist control volume control tidal volume 400 respiratory rate of 22 FiO2 of 40% and PEEP of 5. Monitor chest x-ray Duo nebs as needed Solu-Medrol 40 mg IV push b.i.d. CARDIOVASCULAR: Follow hemodynamics. Titrate vasopressor to keep MAP >65 or systolic blood pressure >95mmHg ICU vital signs Telemetry monitoring 2D echo pending GI & NUTRITION: Continue nutritional support Aspirations precautions Prokinetic agents and laxatives as needed NG tube Tube feedings Dietary consult for recommendations MiraLax daily for bowel regimen KIDNEYS & ELECTROLYTES: Strict monitoring of intake and output Daily weights Avoid nephrotoxic agents Monitor electrolytes and replace as needed Goal urine output of 30mL/hr or 0.5mL/kg/hr Follow nephrology recommendation Monitor electrolytes closely and correct accordingly Lokelma 10 mg 3 times a day then 10 mg daily ENDOCRINE: Maintain blood glucose between 100-180 at all times. Insulin sliding scale for blood glucose management Lantus for long-acting insulin Insulin sliding scale q.6 hours Hypoglycemia protocol p.r.n. INFECTIOUS DISEASE: Trend temperature. Velazco-culture if febrile. influenza- covid- strep abx: zosyn and doxy HEMATOLOGY & COAGULATION: Monitor H&H. Keep Hgb > 7 Transfuse 1 unit of PRBC for Hgb < 7 Transfuse 1 pack of platelets of platelets < 20, 000 Watch for any signs and symptoms of bleeding monitor platelets and for bleeding autoimmune work up SKIN: Pressure ulcer prevention per facility protocol turn q2 hrs per facilty protocol Rehab: PT/OT Code Status: Full Resuscitation Disposition: May downgrade to PCCU Other: Total patient critical care time exceeds 45 minutes excluding all procedures. VERNA ONOFRE [facility] May 12, 2024 10:45
--- NOTE | 2024-05-12 13:10 | NUR ---
PATIENT TRANSFERRED TO ROOM 202 VIA PCCU BED. TELE PACK CONNECTED TO PATIENT. REPORT GIVEN TO Nubia KLEIN RN. ALL QUESTIONS ANSWERED. PATIENT TAKEN WITH PUMP AND RUNNER FOR ANTIBIOTICS. PATIENT LEFT IN ROOM WITH RN AND DAUGHTER AT BEDSIDE.
--- NOTE | 2024-05-12 15:02 | NUR ---
SS VISIT Sw visited with pt who was awake and watching TV. Pt said hello and asked how I was doing. Son states pt is showing lots of improvement since extubation. Son hopeful that pt will improve and able to return home.
--- NOTE | 2024-05-12 17:29 | PN ---
INFECTIOUS DISEASE PROGRESS NOTE Date of Service: May 12, 2024 SUBJECTIVE: This is 88-year-old female patient with past medical history of asthma and COPD with home O2 who was admitted to the hospital with chief complaint of shortness of breaths, cough and altered mental status. Patient was found on acute hypoxic respiratory failure requiring intubation and hypotensive. Today patient has been extubated and has been downgraded to PCCU. Patient was seen and examined at bedside in room 202. Patient is awake, alert and answering basic questions. Family member visiting at bedside. During rounding patient is on aerosol face mask at 10 L. No fever this morning, temperature is 96.4 and the WBC is 5.4. Patient's renal function continue to improve with a BUN of 53 and creatinine of 1.9 this morning. Sputum culture came back positive for Kay albicans and patient is currently on cefepime IV, Flagyl IV and doxycycline p.o. We will continue to monitor patient's care. PHYSICAL EXAM EYES: Anicteric. Pupils equal and reactive. HENT: No oral thrush seen, moist Oral mucosa NECK: Supple, no JVD or thyromegaly. LUNGS: Good air entry. No rales, no rhonchi. Oxygen support. CARDIOVASCULAR: S1, S2 regular. No murmur heard. ABDOMEN: Soft, non tender, bowel sounds present, no organomegaly CENTRAL NERVOUS SYSTEM: Awake, alert, oriented x 2. SKIN: No rashes, no swelling. LYMPHATICS: No peripheral lymphadenopathy. MUSCULOSKELETAL: No joint swelling, erythema or tenderness. EXTREMITIES: No cyanosis or clubbing. BACK: No deformity, no pressure ulcer. GENITOURINARY: No dysuria or hematuria. Vital Sign (Last 12 Hours) 05/12/24 05/12/24 05/12/24 05/12/24 06:00 06:16 06:17 07:00 Pulse 62 67 67 67 Resp 13 18 15 B/P (MAP) 133/60 117/50 Pulse Ox 95 97 O2 Delivery Ventilator Ventilator FiO2 40 40 40 05/12/24 05/12/24 05/12/24 05/12/24 07:54 07:56 08:00 09:00 Temp 96.4 Pulse 68 72 Resp 45 15 B/P (MAP) 119/46 129/49 Pulse Ox 96 97 98 O2 Delivery Ventilator+ Ventilator Ventilator FiO2 40 40 40 12/9/05/12/24 05/12/24 05/12/24 09:04 09:50 10:00 10:21 Pulse 66 71 73 75 Resp 20 20 20 B/P (MAP) 146/57 Pulse Ox 100 O2 Delivery Aerosol Face Mask O2 Flow Rate 10.0 FiO2 40 40 40 05/12/24 05/12/24 05/12/24 05/12/24 11:00 11:35 12:00 14:16 Temp 97.7 Pulse 82 84 67 Resp 21 17 20 B/P (MAP) 148/77 159/65 Pulse Ox 99 98 O2 Delivery Aerosol Face Mask Aerosol Face Mask FiO2 40 40 05/12/24 16:05 Temp 97.9 Pulse 94 Resp 18 B/P (MAP) 154/79 Pulse Ox 99 O2 Delivery Nasal Cannula O2 Flow Rate 4.0 Intake & Output (last 24hrs) 05/11/24 05/11/24 05/12/24 15:00 23:00 07:00 Intake Total 634.0 ml 1047.9 ml Output Total 780 ml Balance 634.0 ml 267.9 ml LABS: Laboratory: Test 05/12/24 15:28 05/12/24 09:32 05/12/24 03:30 05/12/24 02:59 Range/Units Whole Blood Glucose 123 H 70-110 MG/DL Blood Gas Specimen Type Arterial Arterial Blood pH 7.405 7.350-7.450 Arterial Blood Partial Pressure CO2 52 H 32-45 mmHg Arterial Blood Partial Pressure O2 96.2 83.0-108.0 mmHg Arterial Blood HCO3 31.6 H 21.0-28.0 mmol/L Arterial Blood Oxygen Saturation 96.7 94.0-98.0 % Arterial Blood Base Excess 5.7 H -2.0-3.0 mmol/L Hemoglobin (Blood Gas) 12.5 12.0-16.0 g/dL Sodium (Blood Gas) 139 136-145 MMOL/L Bedside Potassium (Blood Gas) 3.3 L 3.4-4.5 MMOL/L Bedside Chloride (Blood Gas) 98 98-107 MMOL/L Bedside Glucose (Blood Gas) 126 H 65-95 MG/DL Bedside Ionized Calcium (Blood Gas) 1.07 L 1.15-1.33 MMOL/L Bedside Lactic Acid (Blood Gas) 1.89 H 0.36-0.75 MMOL/L Blood Gas Temperature 37.0 35.5-37.0 CELSIUS Blood Gas Vent Mode CPAP PS 5 ROOM AIR FiO2 40.0 % Blood Gas PEEP 5 cm H2O Blood Gas CPAP 5 cm H2O Blood Gas Specimen Comment YARI POLE TESTER LR White Blood Count 5.4 # 4.8-10.8 K/uL Red Blood Count 4.07 4.00-5.50 MIL/uL Hemoglobin 11.3 L 12.0-16.0 g/dL Hematocrit 35.5 L 36-48 % Mean Corpuscular Volume 87.2 79-99 fL Mean Corpuscular Hemoglobin 27.8 27.0-33.0 pg Mean Corpuscular Hemoglobin Concent 31.8 L 32.0-36.0 g/dL Red Cell Distribution Width 16.2 H 11.0-15.5 % Platelet Count 76 L 130-400 K/uL Mean Platelet Volume 11.5 H 7.5-10.5 fL Immature Granulocyte % (Auto) 6.3 H 0-1 % Neutrophils (%) (Auto) 78.5 H 40.0-77.0 % Lymphocytes (%) (Auto) 11.5 L 21.0-51.0 % Monocytes (%) (Auto) 3.5 3.0-13.0 % Eosinophils (%) (Auto) 0.0 0.0-8.0 % Basophils (%) (Auto) 0.2 0.0-5.0 % Neutrophils # (Auto) 4.2 1.8-7.7 K/uL Lymphocytes # (Auto) 0.6 L 1.0-4.8 K/uL Monocytes # (Auto) 0.2 0.1-1.0 K/uL Eosinophils # (Auto) 0.00 0.00-0.70 K/uL Basophils # (Auto) 0.01 0.00-0.20 K/uL Absolute Immature Granulocyte (auto 0.34 0-1 K/uL Segmented Neutrophils % 82 H 40-70 % Lymphocytes % (Manual) 14 L 22-44 % Monocytes % (Manual) 4 2-9 % Nucleated Red Blood Cells 0.0 0.0-0.19 % Differential Comment MANUAL DIFFERENTIAL White Cell Morphology Comment CONSISTENT W/DIFF Platelet Morphology Comment DECREASED Red Blood Cell Morphology See comments Sodium Level 144 136-145 mmol/L Potassium Level 3.6 3.5-5.1 mmol/L Chloride Level 104 101-111 mmol/L Carbon Dioxide Level 33 H 21-32 mmol/L Blood Urea Nitrogen 53 H 7-18 mg/dL Creatinine 1.9 H 0.5-1.0 mg/dL Glomerular Filtration Rate Calc 25 >90 mL/min Random Glucose 198 H 70-105 mg/dL Total Calcium 8.0 L 8.5-10.1 mg/dL Total Bilirubin 0.6 # 0.2-1.0 mg/dL Aspartate Amino Transf (AST/SGOT) 22 10-37 U/L Alanine Aminotransferase (ALT/SGPT) 26 12-78 U/L Alkaline Phosphatase 67 50-136 U/L Total Protein 5.5 L 6.0-8.3 g/dL Albumin 2.4 L 3.5-5.0 g/dL Blood Gas Respiration Rate 18.0 min. Blood Gas Tidal Volume 400 ml ASSESSMENT: Hypoxic respiratory failure, requiring intubation, status post extubation. Pneumonia with Kay albicans. Acute on chronic renal failure. 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 Acute renal failure. Thrombocytopenia. PLAN: Continue doxycycline p.o. Continue cefepime IV. Continue metronidazole IV. Continue GI prophylaxis. Continue oxygen support. Academic Support Specialist following. This case was reviewed and discussed with my supervising physician and the above assessment and plan was formulated and agreed upon. ATTESTATION BY PHYSICIAN I have seen and examined the patient. I reviewed the documentation, medical decision making, and treatment plan as noted by the mid-level provider above. I agree with the findings and plan of care. SADIE CAO MD, [facility] May 12, 2024 17:29
--- NOTE | 2024-05-12 19:46 | NUR ---
PTS FINGERSTICK BLOOD SUGAR CHECK 65,PT NPO AT THE MOMENT .PAGED SALLIE MOTA MD .UPDATED MD ON PTS BLOOD SUGAR CHECK OF 66 AND UPDATED PT SHE IS NPO PENDING A SPEECH EVALUATION . PER MD ORDER DEXTROSE 50% SYRINGE PRN FOR HYPOGLYCEMIA .
[2024-05-12] MEDS: DEXTROSE 50%-WATER 50 ML DISP.SYRIN IV ONE (19:55)
[2024-05-12] MEDS: DEXTROSE 50%-WATER 50 ML DISP.SYRIN IV PRN (20:00)
--- NOTE | 2024-05-12 20:37 | PN ---
Subjective Review of Systems PROGRESS NOTE Date of Visit: May 12, 2024 Time of Visit: 20:37 Events since last encounter EXTUBATED AND RESTING ON 4 L NC Subjective AWAKE AND ALERT AND DAUGHTER HELPS WITH HISTORY General: No Fever, No Chills, No Night Sweats, No Fatigue, No Malaise, No Appetite, No Other HEENT: No Head Aches, No Visual Changes, No Eye Pain, No Ear Pain, No Dysphasia, No Sinus Congestion, No Post Nasal Drip, No Sore Throat, No Other Pulmonary: Dyspnea; No Cough, No Pleuritic Chest Pain, No Other Cardiovascular: No: Chest Pain, Palpitations, Orthopnea, Paroxysmal Noc. Dyspnea, Edema, Lt Headedness, Other Gastrointestinal: No: Nausea, Vomiting, Abdominal Pain, Diarrhea, Constipation, Melena, Hematochezia, Other Genitourinary: No Dysuria, No Frequency, No Incontinence, No Hematuria, No Retention, No Other Musculoskeletal: No: other, neck pain, shoulder pain, arm pain, back pain, hand pain, leg pain, foot pain Skin: No Urticaria, No Rash, No Other Neurological: No: Weakness, Numbness, Incoordination, Change in speech, Confusion, Seizures, Other Objective Vitals and I/O Vital Sign (Last 24 Hours) 05/12/24 05/12/24 19:13 19:20 Temp 97.5 Pulse 84 Resp 20 B/P (MAP) 139/58 Pulse Ox 100 O2 Delivery N/Cannula Low lpm O2 Flow Rate 4.0 FiO2 36 Intake & Output (last 24hrs) 05/11/24 05/11/24 05/12/24 15:00 23:00 07:00 Intake Total 634.0 ml 1047.9 ml Output Total 780 ml Balance 634.0 ml 267.9 ml General: Alert, Cooperative, Other (ON VENTILATOR WITH MORBID OBESITY) HEENT: PERRLA Neck: Supple, No thyromegaly Lungs: Other (COARSE BS) Heart: Regular rate, Regular rhythm Abdomen: No masses Extremities: No clubbing, No cyanosis, No edema Results RADIOLOGY: [] EKG: [] Laboratory Tests Test 05/11/24 23:45 05/12/24 02:59 05/12/24 03:30 05/12/24 09:32 Whole Blood Glucose 150 MG/DL (70-110) H Blood Gas Specimen Type Arterial Arterial Arterial Blood pH 7.432 (7.350-7.450) 7.405 (7.350-7.450) Arterial Blood Partial Pressure CO2 49 mmHg (32-45) H 52 mmHg (32-45) H Arterial Blood Partial Pressure O2 73.9 mmHg (83.0-108.0) L 96.2 mmHg (83.0-108.0) Arterial Blood HCO3 31.7 mmol/L (21.0-28.0) H 31.6 mmol/L (21.0-28.0) H Arterial Blood Oxygen Saturation 93.6 % (94.0-98.0) L 96.7 % (94.0-98.0) Arterial Blood Base Excess 6.4 mmol/L (-2.0-3.0) H 5.7 mmol/L (-2.0-3.0) H Hemoglobin (Blood Gas) 12.7 g/dL (12.0-16.0) 12.5 g/dL (12.0-16.0) Sodium (Blood Gas) 140 MMOL/L (136-145) 139 MMOL/L (136-145) Bedside Potassium (Blood Gas) 3.7 MMOL/L (3.4-4.5) 3.3 MMOL/L (3.4-4.5) L Bedside Chloride (Blood Gas) 98 MMOL/L (98-107) 98 MMOL/L (98-107) Bedside Glucose (Blood Gas) 213 MG/DL (65-95) H 126 MG/DL (65-95) H Bedside Ionized Calcium (Blood Gas) 1.07 MMOL/L (1.15-1.33) L 1.07 MMOL/L (1.15-1.33) L Bedside Lactic Acid (Blood Gas) 2.67 MMOL/L (0.36-0.75) H 1.89 MMOL/L (0.36-0.75) H Blood Gas Temperature 37.0 CELSIUS (35.5-37.0) 37.0 CELSIUS (35.5-37.0) Blood Gas Respiration Rate 18.0 min. Blood Gas Vent Mode RR ACVC (ROOM AIR) CPAP PS 5 (ROOM AIR) FiO2 40.0 % 40.0 % Blood Gas Tidal Volume 400 ml Blood Gas PEEP 5 cm H2O 5 cm H2O Blood Gas Specimen Comment YAHAIRA SAMAYOA [employer] SYSTEMS TECHNICIAN LR White Blood Count 5.4 K/uL (4.8-10.8) # Red Blood Count 4.07 MIL/uL (4.00-5.50) Hemoglobin 11.3 g/dL (12.0-16.0) L Hematocrit 35.5 % (36-48) L Mean Corpuscular Volume 87.2 fL (79-99) Mean Corpuscular Hemoglobin 27.8 pg (27.0-33.0) Mean Corpuscular Hemoglobin Concent 31.8 g/dL (32.0-36.0) L Red Cell Distribution Width 16.2 % (11.0-15.5) H Platelet Count 76 K/uL (130-400) L Mean Platelet Volume 11.5 fL (7.5-10.5) H Immature Granulocyte % (Auto) 6.3 % (0-1) H Neutrophils (%) (Auto) 78.5 % (40.0-77.0) H Lymphocytes (%) (Auto) 11.5 % (21.0-51.0) L Monocytes (%) (Auto) 3.5 % (3.0-13.0) Eosinophils (%) (Auto) 0.0 % (0.0-8.0) Basophils (%) (Auto) 0.2 % (0.0-5.0) Neutrophils # (Auto) 4.2 K/uL (1.8-7.7) Lymphocytes # (Auto) 0.6 K/uL (1.0-4.8) L Monocytes # (Auto) 0.2 K/uL (0.1-1.0) Eosinophils # (Auto) 0.00 K/uL (0.00-0.70) Basophils # (Auto) 0.01 K/uL (0.00-0.20) Absolute Immature Granulocyte (auto 0.34 K/uL (0-1) Segmented Neutrophils % 82 % (40-70) H Lymphocytes % (Manual) 14 % (22-44) L Monocytes % (Manual) 4 % (2-9) Nucleated Red Blood Cells 0.0 % (0.0-0.19) Differential Comment MANUAL DIFFERENTIAL White Cell Morphology Comment CONSISTENT W/DIFF Platelet Morphology Comment DECREASED Red Blood Cell Morphology See comments Sodium Level 144 mmol/L (136-145) Potassium Level 3.6 mmol/L (3.5-5.1) Chloride Level 104 mmol/L (101-111) Carbon Dioxide Level 33 mmol/L (21-32) H Blood Urea Nitrogen 53 mg/dL (7-18) H Creatinine 1.9 mg/dL (0.5-1.0) H Glomerular Filtration Rate Calc 25 mL/min (>90) Random Glucose 198 mg/dL (70-105) H Total Calcium 8.0 mg/dL (8.5-10.1) L Total Bilirubin 0.6 mg/dL (0.2-1.0) # Aspartate Amino Transf (AST/SGOT) 22 U/L (10-37) Alanine Aminotransferase (ALT/SGPT) 26 U/L (12-78) Alkaline Phosphatase 67 U/L (50-136) Total Protein 5.5 g/dL (6.0-8.3) L Albumin 2.4 g/dL (3.5-5.0) L Blood Gas CPAP 5 cm H2O Test 05/12/24 11:06 05/12/24 15:28 05/12/24 19:42 Whole Blood Glucose 110 MG/DL (70-110) 123 MG/DL (70-110) H 65 MG/DL (70-110) L Medications Current Medications Methylprednisolone Sodium Succinate 120 mg ONCE ONCE IVP Last administered on 05/07/24at 19:18; Start 05/07/24 at 19:00; Stop 05/07/24 at 19:01; Status DC Albuterol 1 UDVIAL ONCE ONCE IH Last administered on 05/07/24at 19:02; Start 05/07/24 at 19:00; Stop 05/07/24 at 19:01; Status DC Piperacillin Sod/ Tazobactam Sod 3.375 gm ONCE ONCE IVPB Last administered on 05/07/24at 19:18; Start 05/07/24 at 19:00; Stop 05/07/24 at 19:01; Status DC Calcium Gluconate 1 gm/Sodium Chloride 110 ml @ 110 mls/hr ONCE ONCE IV Last administered on 05/07/24at 19:58; Start 05/07/24 at 19:30; Stop 05/07/24 at 20:29; Status DC Dextrose 25 gm ONCE ONCE IV Last administered on 05/07/24at 19:59; Start 05/07/24 at 19:30; Stop 05/07/24 at 19:31; Status DC Insulin Human Regular 5 unit ONCE ONCE IV Last administered on 05/07/24at 19:59; Start 05/07/24 at 19:30; Stop 05/07/24 at 19:31; Status DC Albuterol Sulfate 10 mg ONCE IH Last administered on 05/07/24at 20:32; Start 05/07/24 at 19:30; Stop 05/08/24 at 07:02; Status DC Furosemide 20 mg ONCE ONCE IV Last administered on 05/07/24at 19:58; Start 05/07/24 at 20:00; Stop 05/07/24 at 20:06; Status DC Calcium Gluconate 1 gm STK-MED ONCE .ROUTE; Start 05/07/24 at 19:45; Stop 05/07/24 at 19:45; Status DC Dextrose 50 ml STK-MED ONCE IV; Start 05/07/24 at 19:46; Stop 05/07/24 at 19:46; Status DC Lorazepam 1 mg ONCE ONCE IVP Last administered on 05/07/24at 20:18; Start 05/07/24 at 20:30; Stop 05/07/24 at 20:31; Status DC Albuterol 1 udvial [id number] IH Last administered on 05/12/24at 19:17; Start 05/08/24 at 02:00; Stop 06/07/24 at 01:59 Piperacillin Sod/ Tazobactam Sod 50 ml @ 12.5 mls/hr Q12H IV Last administered on 05/10/24at 06:32; Start 05/08/24 at 05:00; Stop 05/10/24 at 10:39; Status DC Sodium Bicarbonate 50 meq ONCE ONCE IV Last administered on 05/08/24at 00:10; Start 05/08/24 at 00:00; Stop 05/08/24 at 00:01; Status DC Sodium Polystyrene Sulfonate 15 gm ONCE ONCE PO Last administered on 05/08/24at 00:00; Start 05/08/24 at 00:00; Stop 05/08/24 at 00:01; Status DC Calcium Gluconate 1 gm/Sodium Chloride 110 ml @ 110 mls/hr ONCE ONCE IV Last administered on 05/08/24at 04:27; Start 05/08/24 at 04:00; Stop 05/08/24 at 04:59; Status DC Albuterol Sulfate 10 mg ONCE IH; Start 05/08/24 at 04:00; Stop 05/08/24 at 07:02; Status DC Sodium Polystyrene Sulfonate 15 gm Q2H PO Last administered on 05/08/24at 06:10; Start 05/08/24 at 04:00; Stop 05/08/24 at 06:01; Status DC Sodium Bicarbonate 50 meq ONCE ONCE IV Last administered on 05/08/24at 04:27; Start 05/08/24 at 04:00; Stop 05/08/24 at 04:01; Status DC Insulin Human Regular 10 unit ONCE ONCE IV Last administered on 05/08/24at 04:28; Start 05/08/24 at 04:00; Stop 05/08/24 at 04:01; Status DC Dextrose 50 ml ONCE ONCE IV Last administered on 05/08/24at 04:27; Start 05/08/24 at 04:00; Stop 05/08/24 at 04:01; Status DC Calcium Gluconate 1 gm STK-MED ONCE .ROUTE; Start 05/08/24 at 04:05; Stop 05/08/24 at 04:05; Status DC Furosemide 40 mg Q12H IV Last administered on 05/10/24at 08:03; Start 05/08/24 at 09:30; Stop 05/10/24 at 10:32; Status DC Levothyroxine Sodium 75 mcg DAILY@0630 IV Last administered on 05/12/24at 06:25; Start 05/09/24 at 06:30; Stop 06/08/24 at 06:29 Insulin Human Regular 5 unit ONCE ONCE IV Last administered on 05/08/24at 10:58; Start 05/08/24 at 10:30; Stop 05/08/24 at 10:31; Status DC Dextrose 25 ml ONCE ONCE IV Last administered on 05/08/24at 10:49; Start 05/08/24 at 10:30; Stop 05/08/24 at 10:31; Status DC Sodium Zirconium Cyclosilicate 10 gm ONCE ONCE PO Last administered on 05/08/24at 11:04; Start 05/08/24 at 10:30; Stop 05/08/24 at 10:31; Status DC Fentanyl Citrate 100 mcg STK-MED ONCE .ROUTE; Start 05/08/24 at 10:34; Stop 05/08/24 at 10:34; Status DC Fentanyl Citrate 100 ml @ As Directed STK-MED ONCE IV; Start 05/08/24 at 10:38; Stop 05/08/24 at 10:38; Status DC Midazolam HCl 50 ml @ 0 mls/hr PROTOCOL IV Last administered on 05/08/24at 19:59; Start 05/08/24 at 11:00; Stop 05/15/24 at 10:59 Fentanyl Citrate 100 ml @ 0 mls/hr PROTOCOL IV Last administered on 05/08/24at 10:56; Start 05/08/24 at 11:00; Stop 05/08/24 at 15:45; Status DC Fentanyl Citrate 100 mcg ONCE ONCE IVP Last administered on 05/08/24at 10:45; Start 05/08/24 at 11:00; Stop 05/08/24 at 11:01; Status DC Fentanyl Citrate 100 ml @ 2.5 mls/hr PROTOCOL IV; Start 05/08/24 at 11:00; Stop 05/08/24 at 10:56; Status DC Midazolam HCl 50 mg/Sodium Chloride 50 ml @ 0 mls/hr PROTOCOL IV; Start 05/08/24 at 11:00; Stop 05/08/24 at 10:57; Status DC Chlorhexidine Gluconate 15 ml Q8H MM Last administered on 05/12/24at 06:24; Start 05/08/24 at 11:00; Stop 05/22/24 at 10:59 Artificial Tears 1 DROP OR AD Q4H4 OU Last administered on 05/12/24at 11:48; Start 05/08/24 at 12:00; Stop 06/07/24 at 11:59 Doxycycline Hyclate 250 ml @ 125 mls/hr Q12H IV Last administered on 05/10/24at 01:00; Start 05/08/24 at 11:00; Stop 05/10/24 at 10:39; Status DC Rocuronium [place] 50 mg STK-MED ONCE IV; Start 05/07/24 at 13:32; Stop 05/08/24 at 13:32; Status DC Etomidate 20 mg STK-MED ONCE IVP; Start 05/07/24 at 13:32; Stop 05/08/24 at 13:32; Status DC Pantoprazole Sodium 40 mg DAILY IVP Last administered on 05/12/24at 08:18; Start 05/09/24 at 09:00; Stop 06/08/24 at 08:59 Methylprednisolone Sodium Succinate 40 mg BID IVP Last administered on 05/12/24at 08:18; Start 05/08/24 at 21:00; Stop 06/07/24 at 20:59 Polyethylene Glycol 17 gm DAILY PO Last administered on 05/11/24at 08:40; Start 05/09/24 at 09:00; Stop 06/08/24 at 08:59 Sodium Zirconium Cyclosilicate 10 gm TID PO Last administered on 05/09/24at 08:45; Start 05/08/24 at 21:00; Stop 05/09/24 at 20:59; Status DC Insulin Human Regular INSULIN SLIDING SCAL... Q6H6 SQ Last administered on 05/12/24at 06:30; Start 05/08/24 at 18:00; Stop 06/07/24 at 17:59 Insulin Glargine 15 units BID@0730,2100 SQ Last administered on 05/12/24at 06:40; Start 05/08/24 at 21:00; Stop 06/07/24 at 20:59 Fentanyl/Sodium Chloride 250 ml @ 0 mls/hr PROTOCOL IV Last administered on 05/08/24at 19:29; Start 05/08/24 at 16:00; Stop 05/12/24 at 10:46; Status DC Dopamine HCl/ Dextrose 250 ml @ 0 mls/hr PROTOCOL PRN IV; Start 05/09/24 at 09:30; Stop 05/12/24 at 10:46; Status DC Dopamine HCl/ Dextrose 250 ml @ As Directed STK-MED ONCE IV; Start 05/09/24 at 09:24; Stop 05/09/24 at 09:24; Status DC Furosemide 40 mg QODAY PO; Start 05/11/24 at 09:00; Stop 05/09/24 at 10:23; Status DC Nystatin 1 APPL TIDP PRN TP; Start 05/09/24 at 10:30; Stop 06/08/24 at 10:29 Timolol Maleate 1 GGT OD AD TOD AD OD; Start 05/09/24 at 10:30; Stop 05/12/24 at 07:11; Status DC Home Med DAILY PO; Start 05/10/24 at 09:00; Stop 06/09/24 at 08:59 Latanoprost DAILY OP; Start 05/10/24 at 09:00; Stop 05/10/24 at 08:17; Status DC Home Med Levocetirizine Dihydrochloride 2.5 MG HS PO Last administered on 05/10/24at 20:41; Start 05/09/24 at 21:00; Stop 06/08/24 at 20:59 Melatonin 5 mg HS PO Last administered on 05/11/24at 20:12; Start 05/09/24 at 21:00; Stop 06/08/24 at 20:59 Atorvastatin Calcium 5 mg HS PO Last administered on 05/11/24at 20:13; Start 05/09/24 at 21:00; Stop 06/08/24 at 20:59 Home Med LEVOTHYROXINE 37.5 MCG 1 CAP D PO; Start 05/09/24 at 11:30; Stop 06/08/24 at 11:29 Propofol 1,000 mg PROTOCOL PRN IV Last administered on 05/11/24at 06:41; Start 05/09/24 at 13:30; Stop 06/08/24 at 13:29 Latanoprost ONE GTT DAILY OP Last administered on 05/12/24at 08:18; Start 05/10/24 at 09:00; Stop 06/09/24 at 08:59 Cefepime HCl 1 gm Q24H IVPB Last administered on 05/12/24at 10:30; Start 05/10/24 at 11:00; Stop 05/20/24 at 10:59 Vancomycin HCl 1 each AD IV; Start 05/10/24 at 11:00; Stop 05/10/24 at 12:58; Status DC Metronidazole/ Sodium Chloride 100 ml @ 100 mls/hr Q8H6 IVPB Last administered on 05/12/24at 14:38; Start 05/10/24 at 14:00; Stop 05/20/24 at 13:59 Vancomycin HCl 250 ml @ 83.333 mls/ hr ONCE ONCE IV; Start 05/10/24 at 12:00; Stop 05/10/24 at 14:59; Status DC Doxycycline Hyclate 100 mg BID PO Last administered on 05/12/24at 08:19; Start 05/11/24 at 09:00; Stop 05/19/24 at 08:59 Dexmedetomidine/ Sodium Chloride 400 mcg STK-MED ONCE IV Last administered on 05/11/24at 19:16; Start 05/11/24 at 15:04; Stop 05/11/24 at 15:05; Status DC Dexmedetomidine/ Sodium Chloride 400 mcg PROTOCOL IV Last administered on 05/12/24at 06:41; Start 05/11/24 at 15:30; Stop 05/12/24 at 10:46; Status DC Dextrose 50 ml STK-MED ONCE IV; Start 05/12/24 at 19:55; Stop 05/12/24 at 19:55; Status DC Dextrose 50 ml PROTOCOL PRN IV Last administered on 05/12/24at 20:00; Start 05/12/24 at 20:00; Stop 06/11/24 at 19:59 Assessment/Plan ASSESSMENT: THIS IS A 88 YR OLD WOMAN WITH HISTORY OF COPD BILAT LOWER EXTREMITY 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 Major depressive disorder, single episode, moderate MUSCLE SPASTICITY 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 HYPERLIPIDEMIA HYPOTHYROIDISM MORBID OBESITY : BMI 44.9 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, DUE TO LUNG DISEASE OBSTRUCTIVE SLEEP 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 ANXIETY D/O HH AND RENAL DIS /CKD 3 W SERRANO CHF SHE PRESENTED WITH ACUTE HYPERCAPNIC RESPIRATORY FAILURE REQUIRING MECHANICAL VENTILATION ACUTE RENAL FAILURE WITH HYPERKALEMIA ACUTE CHF THROMBOCYTOPENIA PNEUMONIA HYPOGLYCEMIA DYSPHAGIA PLAN: WEANED FROM VENTILATOR RESTING ON 4 L PER NC ON CEFEPIME AND METRONIDAZOLE WITH ADDITION OF DOXYCYCLINE WEANING IV STEROIDS AND NEBS CONT BIPAP Q HS ADJUSTING BASAL INSULIN MONITORING AND SUPPLEMENTING ELECTROLYTES NEEDED SPEECH EVALUATION PENDING TO ADVANCE DIET COVER FOR HYPOGLYCEMIA DVT PROPHYLAXIS W TEDS AND SCD STRESS ULCER PROPHYLAXIS W PPI CODE STATUS ESTABLISHED A DNR UPDATED DAUGHTER AND PATIENT AT BEDSIDE SALLIE MOTA MD May 12, 2024 20:37
--- NOTE | 2024-05-12 23:00 | NUR ---
PER DAYSHIFT NURSE DALTON SAMAYOA PT IS TO BE KEPT NPO ,PENDING A SPEECH EVALUATION FOR TOMORROW 05/13/24. PTS PO MEDICATIONS HELD FOR TONIGHT .
--- NOTE | 2024-05-12 23:01 | NUR ---
PT LAYING IN BED WITH THE HEAD OF THE BED ELEVATED.PT DOES NOT APPEAR TO BE IN ANY DISTRESS.INSTRUCTED PT TO USE THE CALL LIGHT FOR ANY ASSISTANCE WHEN NEEDED. PT UNDERSTOOD BED IS LOW AND LOCKED CALL LIGHT WITHIN REACH .
[2024-05-13] VITALS (15 sets, daily range): BP systolic 128–162; BP diastolic 51–76; PULSE 75–90; RESP 16–27; TEMP 97.5–98.2; O2SAT 95–98
[2024-05-13 03:51] LABS: BASOPHILS # (AUTO) 0.02 K/uL (0.00-0.20); BASOPHILS % (AUTO) 0.3 % (0.0-5.0); HEMATOCRIT 38.4 % (36-48); IMMATURE GRANULOCYTE ABSOLUTE 0.68 K/uL (0-1); LYMPHOCYTES # (AUTO) 0.6 K/uL (1.0-4.8); LYMPHOCYTES % (AUTO) 7.5 % (21.0-51.0); MEAN CORPUSCULAR HEMOGLOBIN 27.4 pg (27.0-33.0); MEAN CORPUSCULAR VOLUME 88.5 fL (79-99); MONOCYTES # (AUTO) 0.3 K/uL (0.1-1.0); MONOCYTES % (AUTO) 4.1 % (3.0-13.0); NEUTROPHILS # (AUTO) 5.8 K/uL (1.8-7.7); NEUTROPHILS % (AUTO) 78.9 % (40.0-77.0); PLATELET COUNT (AUTO) 73 K/uL (130-400); RED BLOOD CELL COUNT(AUTO) 4.34 MIL/uL (4.00-5.50); RED CELL DISTRIBUTION WIDTH 16.2 % (11.0-15.5); WHITE BLOOD COUNT (AUTO) 7.4 K/uL (4.8-10.8)
[2024-05-13 04:04] LABS: ALBUMIN 2.7 g/dL (3.5-5.0); BILIRUBIN,TOTAL 0.7 mg/dL (0.2-1.0); CREATININE 1.4 mg/dL (0.5-1.0); POTASSIUM 3.7 mmol/L (3.5-5.1)
[2024-05-13 04:24] LABS: LYMPHOCYTES % (MANUAL) 6 % (22-44); MAN.DIFF COMMENT-IMPRESSION MANUAL DIFFERENTIAL; MONOCYTES % (MANUAL) 3 % (2-9); REACTIVE LYMPHOCYTES 3 % (0-0); SEGMENTED NEUTROPHILS % 88 % (40-70); TOTAL CELLS COUNTED 100; WBC MORPHOLOGY REACTIVE LYMPHS 1+
[2024-05-13 04:25] LABS: PLATELET MORPHOLOGY COMMENT DECREASED
--- NOTE | 2024-05-13 14:20 | NUR ---
BEDSIDE SWALLOW EVAL COMPLETED. No s/s of aspiration. Recommend mechanical soft/chopped solids and advanced to regular solids as tolerated, thin liquids and pills whole with liquids as tolerated. Compensatory strategies: 1. sit upright during oral intake BUSINESS SERVICES ADMINISTRATOR reviewed results and recommendations with patient, family and nurse Debbie. BUSINESS SERVICES ADMINISTRATOR educated patient on risks and consequences of aspiration. Speech therapy not warranted at this time. All questions answered. Addendum: 05/13/[address] [facility]ATHERINE SHANNON Amended: Links added.
--- NOTE | 2024-05-13 14:22 | PN ---
INFECTIOUS DISEASE PROGRESS NOTE Date of Service: May 13, 2024 SUBJECTIVE: This is 88-year-old female patient with past medical history of asthma and COPD with home O2 who was admitted to the hospital with chief complaint of shortness of breaths, cough and altered mental status. Patient was found on acute hypoxic respiratory failure requiring intubation and hypotensive. Patient was seen and examined at bedside in room 202. Patient is awake, alert and answering basic questions. Patient is currently on oxygen via nasal cannula at 4 liters/minute. Pending a modified barium swallow study. No reports of fever, temperature is 97.9 and the WBC is 7.4. Patient continues on cefepime IV, Flagyl IV and doxycycline p.o. We will continue to monitor patient's care. Per report however case management is working on setting up home with hospice services. PHYSICAL EXAM EYES: Anicteric. Pupils equal and reactive. HENT: No oral thrush seen, moist Oral mucosa NECK: Supple, no JVD or thyromegaly. LUNGS: Good air entry. No rales, no rhonchi. Oxygen support via nasal cannula. CARDIOVASCULAR: S1, S2 regular. No murmur heard. ABDOMEN: Soft, non tender, bowel sounds present, no organomegaly CENTRAL NERVOUS SYSTEM: Awake, alert, oriented x 2. SKIN: No rashes, no swelling. LYMPHATICS: No peripheral lymphadenopathy. MUSCULOSKELETAL: No joint swelling, erythema or tenderness. EXTREMITIES: No cyanosis or clubbing. BACK: No deformity, no pressure ulcer. GENITOURINARY: No dysuria or hematuria. Vital Sign (Last 12 Hours) 05/13/24 05/13/24 05/13/24 05/13/24 03:33 06:06 07:01 07:04 Temp 97.5 Pulse 80 75 75 Resp 20 21 21 B/P (MAP) 162/76 149/59 Pulse Ox 96 O2 Delivery BIPAP FiO2 40 05/13/24 05/13/24 05/13/24 05/13/24 07:04 07:57 08:00 09:48 Temp 97.5 Pulse 75 84 81 Resp 20 16 19 B/P (MAP) 136/51 Pulse Ox 97 97 O2 Delivery N/Cannula Low lpm BIPAP Nasal Cannula* O2 Flow Rate 4.0 4 FiO2 36 36 05/13/24 05/13/24 11:57 13:54 Temp 97.9 Pulse 85 79 Resp 16 19 B/P (MAP) 128/59 Pulse Ox 94 O2 Delivery Nasal Cannula O2 Flow Rate 4.0 Intake & Output (last 24hrs) 05/12/24 05/12/24 05/13/24 15:00 23:00 07:00 Intake Total 586.1 ml 200.0 ml Output Total 450 ml 1100 ml Balance 136.1 ml -900.0 ml LABS: Laboratory: Test 05/13/24 11:24 05/13/24 03:36 05/12/24 09:32 05/12/24 02:59 Range/Units Whole Blood Glucose 75 70-110 MG/DL White Blood Count 7.4 4.8-10.8 K/uL Red Blood Count 4.34 4.00-5.50 MIL/uL Hemoglobin 11.9 L 12.0-16.0 g/dL Hematocrit 38.4 36-48 % Mean Corpuscular Volume 88.5 79-99 fL Mean Corpuscular Hemoglobin 27.4 27.0-33.0 pg Mean Corpuscular Hemoglobin Concent 31.0 L 32.0-36.0 g/dL Red Cell Distribution Width 16.2 H 11.0-15.5 % Platelet Count 73 L 130-400 K/uL Mean Platelet Volume 10.7 H 7.5-10.5 fL Immature Granulocyte % (Auto) 9.2 H 0-1 % Neutrophils (%) (Auto) 78.9 H 40.0-77.0 % Lymphocytes (%) (Auto) 7.5 L 21.0-51.0 % Monocytes (%) (Auto) 4.1 3.0-13.0 % Eosinophils (%) (Auto) 0.0 0.0-8.0 % Basophils (%) (Auto) 0.3 0.0-5.0 % Neutrophils # (Auto) 5.8 1.8-7.7 K/uL Lymphocytes # (Auto) 0.6 L 1.0-4.8 K/uL Monocytes # (Auto) 0.3 0.1-1.0 K/uL Eosinophils # (Auto) 0.00 0.00-0.70 K/uL Basophils # (Auto) 0.02 0.00-0.20 K/uL Absolute Immature Granulocyte (auto 0.68 0-1 K/uL Segmented Neutrophils % 88 H 40-70 % Lymphocytes % (Manual) 6 L 22-44 % Monocytes % (Manual) 3 2-9 % Nucleated Red Blood Cells 0.0 0.0-0.19 % Differential Comment MANUAL DIFFERENTIAL Reactive Lymphocytes 3 H 0-0 % White Cell Morphology Comment REACTIVE LYMPHS 1+ Platelet Morphology Comment DECREASED Red Blood Cell Morphology See comments Sodium Level 147 H 136-145 mmol/L Potassium Level 3.7 3.5-5.1 mmol/L Chloride Level 107 101-111 mmol/L Carbon Dioxide Level 34 H 21-32 mmol/L Blood Urea Nitrogen 42 H 7-18 mg/dL Creatinine 1.4 H 0.5-1.0 mg/dL Glomerular Filtration Rate Calc 36 >90 mL/min Random Glucose 113 H 70-105 mg/dL Total Calcium 8.4 L 8.5-10.1 mg/dL Total Bilirubin 0.7 0.2-1.0 mg/dL Aspartate Amino Transf (AST/SGOT) 25 10-37 U/L Alanine Aminotransferase (ALT/SGPT) 30 12-78 U/L Alkaline Phosphatase 68 50-136 U/L Total Protein 6.0 6.0-8.3 g/dL Albumin 2.7 L 3.5-5.0 g/dL Blood Gas Specimen Type Arterial Arterial Blood pH 7.405 7.350-7.450 Arterial Blood Partial Pressure CO2 52 H 32-45 mmHg Arterial Blood Partial Pressure O2 96.2 83.0-108.0 mmHg Arterial Blood HCO3 31.6 H 21.0-28.0 mmol/L Arterial Blood Oxygen Saturation 96.7 94.0-98.0 % Arterial Blood Base Excess 5.7 H -2.0-3.0 mmol/L Hemoglobin (Blood Gas) 12.5 12.0-16.0 g/dL Sodium (Blood Gas) 139 136-145 MMOL/L Bedside Potassium (Blood Gas) 3.3 L 3.4-4.5 MMOL/L Bedside Chloride (Blood Gas) 98 98-107 MMOL/L Bedside Glucose (Blood Gas) 126 H 65-95 MG/DL Bedside Ionized Calcium (Blood Gas) 1.07 L 1.15-1.33 MMOL/L Bedside Lactic Acid (Blood Gas) 1.89 H 0.36-0.75 MMOL/L Blood Gas Temperature 37.0 35.5-37.0 CELSIUS Blood Gas Vent Mode CPAP PS 5 ROOM AIR FiO2 40.0 % Blood Gas PEEP 5 cm H2O Blood Gas CPAP 5 cm H2O Blood Gas Specimen Comment YARI CAN FEEDER LR Blood Gas Respiration Rate 18.0 min. Blood Gas Tidal Volume 400 ml ASSESSMENT: Hypoxic respiratory failure, requiring intubation, status post extubation. Pneumonia with Kay albicans. Acute on chronic renal failure. 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 Acute renal failure. Thrombocytopenia. PLAN: Case management working on setting up home with hospice services. Continue doxycycline p.o. Continue cefepime IV. Continue metronidazole IV. Continue oxygen support. This case was reviewed and discussed with my supervising physician and the above assessment and plan was formulated and agreed upon. ATTESTATION BY PHYSICIAN I have seen and examined the patient. I reviewed the documentation, medical decision making, and treatment plan as noted by the mid-level provider above. I agree with the findings and plan of care. SADIE CAO MD, [facility] May 13, 2024 14:22
--- NOTE | 2024-05-13 16:56 | PN ---
SUBJECTIVE: An 88-year-old female initially presented with underlying respiratory distress. The patient requiring mechanical ventilation. The patient has been successfully extubated. The patient has been transferred out to a medical floor. She has had acute renal failure in the hospital and creatinine has actually improved. The patient is a DNR per family request and the patient is being seen as a followup visit for all of the above. I did discuss with the patient's family. REVIEW OF SYSTEMS: GENERAL: She is feeling improved. HEENT: No change in vision. No change in hearing. CARDIOVASCULAR: There is no current chest pain or palpitations. PULMONARY: There is no current shortness of breath. GASTROINTESTINAL: The patient is tolerating a diet. MUSCULOSKELETAL: Complains of weakness. PHYSICAL EXAMINATION: VITAL SIGNS: Blood pressure 129/58, pulse in the 80s. GENERAL: She is a chronically ill, obese female lying in bed on medical floor. HEENT: Head is atraumatic. Pupils equal, roving to light. Oropharynx is without exudate. Nares clear. NECK: There is no JVP. There is no thyromegaly, no mass. CARDIOVASCULAR: Regular. There is no S3, S4 gallop. LUNGS: Coarse with equal thoracic movement. ABDOMEN: Soft, nondistended, nontender. EXTREMITIES: Reveal no clubbing, no cyanosis. NEUROLOGIC: She is more awake and alert today. She has dementia. LABORATORY DATA: Hemoglobin 11, hematocrit 38, white count 7000. Sodium 147, BUN 42, creatinine 1.4. IMPRESSION: * Acute renal failure. * Respiratory distress. * Sleep apnea. * Electrolyte abnormalities. PLAN: The patient is to be seen by Speech Therapy in regards to initiation of a diet. The patient will be encouraged for free water intake for the hypernatremia. We will have Physical Therapy evaluate the patient, most likely will require rehab upon discharge. The patient is a DNR per family request. We will follow closely. TID: [id number] RECEIPT: [id number]
--- NOTE | 2024-05-13 17:12 | NUR ---
CM NOTE/[facility] CM spoke to mariella Loja [phone] regarding d/c planning. States she has discussed plan with MD and wants patient to return with same hospice agency [facility]. States she has spoken to agency about a bipap machine at home. CM obtained FERNANDO for [facility]. CM spoke to Noemy with the hospice and states they have ordered bipap and anticipate delivery tonight or tomorrow AM. Mariella Loja is aware that d/c planning is for tomorrow. CM faxed requested updates to hospice agency. Per Noemy with [facility], patient is reaccepted and is working on OOH DNR for patient. CM to arrange EMS. Address verified with mariella Loja. Addendum: 05/13/24 at 1716 by MIESHA CEDILLO Amended: Links added.
--- NOTE | 2024-05-13 17:16 | NUR ---
note REPORT CALLED TO NURSE RABAGO. PATIENT TRANSFERRED TO 4TH FLOOR ROOM 426 DAUGHTER AT BEDSIDE.
--- NOTE | 2024-05-13 17:50 | NUR ---
TRANSFER RECEIVED PATIENT FROM ROOM 202, PATIENT STABLE NOTED TO HAVE BUSTILLOS CATHETER IN PLACE, HAS PICC LINE TO JOE. PATIENT CURRENTLY DENIES HAVING ANY PAIN OR DISCOMFORT AT THIS TIME. DAUGHTER AT BEDSIDE. CALL LIGHT WITHIN REACH.
--- NOTE | 2024-05-13 18:26 | PN ---
[facility] PROGRESS NOTE Date Patient Seen: May 13, 2024 Time of Visit: 18:20 Supervising Physician: [ARTURO GARNETT MD ] Primary Care Physician: Attending team: [employer] hospitalist team. Outpatient Specialists: Inpatient Consults: BIS, critical Care team Nephrology PROBLEM LIST: Acute hypercarbic respiratory failure with hypoventilation syndrome POA requiring intubation in 05/08/24, extubated 1210/24 Acute kidney injury on admission on top of CKD Acute systolic heart failure on admission Myelodysplastic syndromge Pre- Diabetes Hypothyroidism Hyperlipidemia Major depression disorder Generalized anxiety disorder Guillain Rockton syndrome with paraplegia Dementia Morbidly obese class III, BMI 43.2 INTERVAL HISTORY: 05/13/2024 Successfully extubated 24 hours ago She is on BiPAP intermittently, when not on BiPAP, she is on 4 liters O2 via nasal canula She is very weak, afebrile, with fatigue and tachypnea Unable to complete a sentence, confused, poor appetite No fevers reported No nausea or vomiting Has NGT, tolerating feedings As per nurse, family wants patient to go back on hospice care REVIEW OF SYSTEMS: Confused, not following commands Withdrawn, no seizures PHYSICAL EXAM: GENERAL: Pt awake following commands on SBT's tolerating/ HEENT: Sclera non icteric, moist mucosa NECK: Supple, no JVD, trachea midline LUNGS: Decreased breath sounds bilaterally, no wheezing HEART: Regular rate and rhythm. Normal S1 and S2, without murmurs ABD: Abdomen soft, obese, nontender. 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 NEURO: Intubated off sedation but on CPAP trials. Hx of Guillain-Rockton with weakness to lower extremeties at baseline and bed bound status Vital Signs (last 8hr) Date Time Temp Pulse Resp B/P (MAP) Pulse Ox O2 Delivery O2 Flow Rate FiO2 05/13/24 16:22 98.2 82 18 156/56 95 Room Air 4.0 05/13/24 14:20 N/C Nasal Cannula 05/13/24 13:54 79 19 05/13/24 11:57 97.9 85 16 128/59 94 Nasal Cannula 4.0 LABS: Hematology Labs: Test 05/13/24 03:36 Range/Units White Blood Count 7.4 4.8-10.8 K/uL Red Blood Count 4.34 4.00-5.50 MIL/uL Hemoglobin 11.9 L 12.0-16.0 g/dL Hematocrit 38.4 36-48 % Mean Corpuscular Volume 88.5 79-99 fL Mean Corpuscular Hemoglobin 27.4 27.0-33.0 pg Mean Corpuscular Hemoglobin Concent 31.0 L 32.0-36.0 g/dL Red Cell Distribution Width 16.2 H 11.0-15.5 % Platelet Count 73 L 130-400 K/uL Mean Platelet Volume 10.7 H 7.5-10.5 fL Immature Granulocyte % (Auto) 9.2 H 0-1 % Neutrophils (%) (Auto) 78.9 H 40.0-77.0 % Lymphocytes (%) (Auto) 7.5 L 21.0-51.0 % Monocytes (%) (Auto) 4.1 3.0-13.0 % Eosinophils (%) (Auto) 0.0 0.0-8.0 % Basophils (%) (Auto) 0.3 0.0-5.0 % Neutrophils # (Auto) 5.8 1.8-7.7 K/uL Lymphocytes # (Auto) 0.6 L 1.0-4.8 K/uL Monocytes # (Auto) 0.3 0.1-1.0 K/uL Eosinophils # (Auto) 0.00 0.00-0.70 K/uL Basophils # (Auto) 0.02 0.00-0.20 K/uL Absolute Immature Granulocyte (auto 0.68 0-1 K/uL Segmented Neutrophils % 88 H 40-70 % Lymphocytes % (Manual) 6 L 22-44 % Monocytes % (Manual) 3 2-9 % Nucleated Red Blood Cells 0.0 0.0-0.19 % Differential Comment MANUAL DIFFERENTIAL Reactive Lymphocytes 3 H 0-0 % White Cell Morphology Comment REACTIVE LYMPHS 1+ Platelet Morphology Comment DECREASED Red Blood Cell Morphology See comments Chemistry Labs: Test 05/13/24 15:41 05/13/24 03:36 Range/Units Whole Blood Glucose 77 70-110 MG/DL Sodium Level 147 H 136-145 mmol/L Potassium Level 3.7 3.5-5.1 mmol/L Chloride Level 107 101-111 mmol/L Carbon Dioxide Level 34 H 21-32 mmol/L Blood Urea Nitrogen 42 H 7-18 mg/dL Creatinine 1.4 H 0.5-1.0 mg/dL Glomerular Filtration Rate Calc 36 >90 mL/min Random Glucose 113 H 70-105 mg/dL Total Calcium 8.4 L 8.5-10.1 mg/dL Total Bilirubin 0.7 0.2-1.0 mg/dL Aspartate Amino Transf (AST/SGOT) 25 10-37 U/L Alanine Aminotransferase (ALT/SGPT) 30 12-78 U/L Alkaline Phosphatase 68 50-136 U/L Total Protein 6.0 6.0-8.3 g/dL Albumin 2.7 L 3.5-5.0 g/dL DIAGNOSTICS / RADIOLOGY RESULTS: [ Reviewed at bedside ] PLAN As per discussion with nurse and case management, family requesting to place patient on BiPAP Will continue with inpatient medical management for now until hospice arranged monitor renal clearance avoid use of nephrotoxic medications avoid use of central acting medications continue supplemental oxygen CPAP as indicated keep patient comfortable NEURO: Minimize central acting medications as possible. Maintain fall precautions, adequate lighting during the day PULMONARY: Supplemental 02 as needed. Maintain aspiration precautions at all times CARDIOVASCULAR: Follow hemodynamics. Vital signs per facility protocol GI & NUTRITION: Continue with nutritional support. Continue stool softeners and laxatives as needed. KIDNEYS & ELECTROLYTES: Strict monitoring of intake, output and overall fluid balance. Avoid nephrotoxic medications to the extent possible. Medications to be dosed according to renal function. Monitor electrolytes and replace as needed ENDOCRINE: Maintain blood glucose between 100-180 at all times. Hypoglycemia protocol in place INFECTIOUS DISEASE: Trend temperature, WBC and procalcitonin level Follow cultures, deescalate antibiotics as soon as possible. Panculture if new onset fever ONCOLOGY/HEMATOLOGY/COAGULATION: Monitor for s/s of bleeding Monitor hemoglobin, coagulation studies as needed SKIN: Pressure ulcer prevention per facility protocol Specialty mattress ORTHO/REHAB: Continue PT/OT Prophylaxis: Continue GI and DVT prophylaxis Code Status: Full Resuscitation Disposition: Home with hospice Other: Total patient care time exceeds 35 minutes ATTESTATION BY PHYSICIAN This document was scribed by Russell Elizondo [facility] [place] on my behalf and I attest to the clinical accuracy of the note. Arturo Garnett MD I personally scribed for ARTURO GARNETT MD ([email or web address]) on 05/13/24 at 18:26. Electronically submitted by Russell Elizondo ([email or web address]). ARTURO GARNETT MD May 13, 2024 18:26
[2024-05-13] MEDS: INSULIN humuLIN R 100 UNIT/ML 3ML SQ SCH (21:00)
--- NOTE | 2024-05-13 22:13 | PN ---
Subjective Review of Systems PROGRESS NOTE Date of Visit: May 13, 2024 Time of Visit: 22:12 Events since last encounter PATIENT MORE ALERT AND AWAKE Subjective AWAKE AND ALERT AND DAUGHTER HELPS WITH HISTORY General: No Fever, No Chills, No Night Sweats, No Fatigue, No Malaise, No Appetite, No Other HEENT: No Head Aches, No Visual Changes, No Eye Pain, No Ear Pain, No Dysphasia, No Sinus Congestion, No Post Nasal Drip, No Sore Throat, No Other Pulmonary: No Dyspnea, No Cough, No Pleuritic Chest Pain, No Other Cardiovascular: No: Chest Pain, Palpitations, Orthopnea, Paroxysmal Noc. Dyspnea, Edema, Lt Headedness, Other Gastrointestinal: No: Nausea, Vomiting, Abdominal Pain, Diarrhea, Constipation, Melena, Hematochezia, Other Genitourinary: No Dysuria, No Frequency, No Incontinence, No Hematuria, No Retention, No Other Musculoskeletal: No: other, neck pain, shoulder pain, arm pain, back pain, hand pain, leg pain, foot pain Skin: No Urticaria, No Rash, No Other Neurological: No: Weakness, Numbness, Incoordination, Change in speech, Confusion, Seizures, Other Objective Vitals and I/O Vital Sign (Last 24 Hours) 05/13/24 20:00 Temp 98.1 Pulse 79 Resp 19 B/P (MAP) 134/65 Pulse Ox 97 O2 Delivery Nasal Cannula O2 Flow Rate 3.0 FiO2 28 Intake & Output (last 24hrs) 05/12/24 05/12/24 05/13/24 15:00 23:00 07:00 Intake Total 586.1 ml 200.0 ml Output Total 450 ml 1100 ml Balance 136.1 ml -900.0 ml General: Alert, Cooperative, No acute distress, Other (ON VENTILATOR WITH MORBID OBESITY) HEENT: PERRLA Neck: Supple, No thyromegaly Lungs: Other (COARSE BS) Heart: Regular rate, Regular rhythm Abdomen: No masses Extremities: No clubbing, No cyanosis, No edema Results RADIOLOGY: [] EKG: [] Laboratory Tests Test 05/13/24 01:13 05/13/24 03:36 05/13/24 06:13 05/13/24 11:24 Whole Blood Glucose 84 MG/DL (70-110) 107 MG/DL (70-110) 75 MG/DL (70-110) White Blood Count 7.4 K/uL (4.8-10.8) Red Blood Count 4.34 MIL/uL (4.00-5.50) Hemoglobin 11.9 g/dL (12.0-16.0) L Hematocrit 38.4 % (36-48) Mean Corpuscular Volume 88.5 fL (79-99) Mean Corpuscular Hemoglobin 27.4 pg (27.0-33.0) Mean Corpuscular Hemoglobin Concent 31.0 g/dL (32.0-36.0) L Red Cell Distribution Width 16.2 % (11.0-15.5) H Platelet Count 73 K/uL (130-400) L Mean Platelet Volume 10.7 fL (7.5-10.5) H Immature Granulocyte % (Auto) 9.2 % (0-1) H Neutrophils (%) (Auto) 78.9 % (40.0-77.0) H Lymphocytes (%) (Auto) 7.5 % (21.0-51.0) L Monocytes (%) (Auto) 4.1 % (3.0-13.0) Eosinophils (%) (Auto) 0.0 % (0.0-8.0) Basophils (%) (Auto) 0.3 % (0.0-5.0) Neutrophils # (Auto) 5.8 K/uL (1.8-7.7) Lymphocytes # (Auto) 0.6 K/uL (1.0-4.8) L Monocytes # (Auto) 0.3 K/uL (0.1-1.0) Eosinophils # (Auto) 0.00 K/uL (0.00-0.70) Basophils # (Auto) 0.02 K/uL (0.00-0.20) Absolute Immature Granulocyte (auto 0.68 K/uL (0-1) Segmented Neutrophils % 88 % (40-70) H Lymphocytes % (Manual) 6 % (22-44) L Monocytes % (Manual) 3 % (2-9) Nucleated Red Blood Cells 0.0 % (0.0-0.19) Differential Comment MANUAL DIFFERENTIAL Reactive Lymphocytes 3 % (0-0) H White Cell Morphology Comment REACTIVE LYMPHS 1+ Platelet Morphology Comment DECREASED Red Blood Cell Morphology See comments Sodium Level 147 mmol/L (136-145) H Potassium Level 3.7 mmol/L (3.5-5.1) Chloride Level 107 mmol/L (101-111) Carbon Dioxide Level 34 mmol/L (21-32) H Blood Urea Nitrogen 42 mg/dL (7-18) H Creatinine 1.4 mg/dL (0.5-1.0) H Glomerular Filtration Rate Calc 36 mL/min (>90) Random Glucose 113 mg/dL (70-105) H Total Calcium 8.4 mg/dL (8.5-10.1) L Total Bilirubin 0.7 mg/dL (0.2-1.0) Aspartate Amino Transf (AST/SGOT) 25 U/L (10-37) Alanine Aminotransferase (ALT/SGPT) 30 U/L (12-78) Alkaline Phosphatase 68 U/L (50-136) Total Protein 6.0 g/dL (6.0-8.3) Albumin 2.7 g/dL (3.5-5.0) L Test 05/13/24 15:41 05/13/24 19:24 Whole Blood Glucose 77 MG/DL (70-110) 101 MG/DL (70-110) Medications Current Medications Methylprednisolone Sodium Succinate 120 mg ONCE ONCE IVP Last administered on 05/07/24at 19:18; Start 05/07/24 at 19:00; Stop 05/07/24 at 19:01; Status DC Albuterol 1 UDVIAL ONCE ONCE IH Last administered on 05/07/24at 19:02; Start 05/07/24 at 19:00; Stop 05/07/24 at 19:01; Status DC Piperacillin Sod/ Tazobactam Sod 3.375 gm ONCE ONCE IVPB Last administered on 05/07/24at 19:18; Start 05/07/24 at 19:00; Stop 05/07/24 at 19:01; Status DC Calcium Gluconate 1 gm/Sodium Chloride 110 ml @ 110 mls/hr ONCE ONCE IV Last administered on 05/07/24at 19:58; Start 05/07/24 at 19:30; Stop 05/07/24 at 20:29; Status DC Dextrose 25 gm ONCE ONCE IV Last administered on 05/07/24at 19:59; Start 05/07/24 at 19:30; Stop 05/07/24 at 19:31; Status DC Insulin Human Regular 5 unit ONCE ONCE IV Last administered on 05/07/24at 19:59; Start 05/07/24 at 19:30; Stop 05/07/24 at 19:31; Status DC Albuterol Sulfate 10 mg ONCE IH Last administered on 05/07/24at 20:32; Start 05/07/24 at 19:30; Stop 05/08/24 at 07:02; Status DC Furosemide 20 mg ONCE ONCE IV Last administered on 05/07/24at 19:58; Start 05/07/24 at 20:00; Stop 05/07/24 at 20:06; Status DC Calcium Gluconate 1 gm STK-MED ONCE .ROUTE; Start 05/07/24 at 19:45; Stop 05/07/24 at 19:45; Status DC Dextrose 50 ml STK-MED ONCE IV; Start 05/07/24 at 19:46; Stop 05/07/24 at 19:46; Status DC Lorazepam 1 mg ONCE ONCE IVP Last administered on 05/07/24at 20:18; Start 05/07/24 at 20:30; Stop 05/07/24 at 20:31; Status DC Albuterol 1 udvial [id number] IH Last administered on 05/13/24at 19:02; Start 05/08/24 at 02:00; Stop 06/07/24 at 01:59 Piperacillin Sod/ Tazobactam Sod 50 ml @ 12.5 mls/hr Q12H IV Last administered on 05/10/24at 06:32; Start 05/08/24 at 05:00; Stop 05/10/24 at 10:39; Status DC Sodium Bicarbonate 50 meq ONCE ONCE IV Last administered on 05/08/24at 00:10; Start 05/08/24 at 00:00; Stop 05/08/24 at 00:01; Status DC Sodium Polystyrene Sulfonate 15 gm ONCE ONCE PO Last administered on 05/08/24at 00:00; Start 05/08/24 at 00:00; Stop 05/08/24 at 00:01; Status DC Calcium Gluconate 1 gm/Sodium Chloride 110 ml @ 110 mls/hr ONCE ONCE IV Last administered on 05/08/24at 04:27; Start 05/08/24 at 04:00; Stop 05/08/24 at 04:59; Status DC Albuterol Sulfate 10 mg ONCE IH; Start 05/08/24 at 04:00; Stop 05/08/24 at 07:02; Status DC Sodium Polystyrene Sulfonate 15 gm Q2H PO Last administered on 05/08/24at 06:10; Start 05/08/24 at 04:00; Stop 05/08/24 at 06:01; Status DC Sodium Bicarbonate 50 meq ONCE ONCE IV Last administered on 05/08/24at 04:27; Start 05/08/24 at 04:00; Stop 05/08/24 at 04:01; Status DC Insulin Human Regular 10 unit ONCE ONCE IV Last administered on 05/08/24at 04:28; Start 05/08/24 at 04:00; Stop 05/08/24 at 04:01; Status DC Dextrose 50 ml ONCE ONCE IV Last administered on 05/08/24at 04:27; Start 05/08/24 at 04:00; Stop 05/08/24 at 04:01; Status DC Calcium Gluconate 1 gm STK-MED ONCE .ROUTE; Start 05/08/24 at 04:05; Stop 05/08/24 at 04:05; Status DC Furosemide 40 mg Q12H IV Last administered on 05/10/24at 08:03; Start 05/08/24 at 09:30; Stop 05/10/24 at 10:32; Status DC Levothyroxine Sodium 75 mcg DAILY@0630 IV Last administered on 05/12/24at 06:25; Start 05/09/24 at 06:30; Stop 06/08/24 at 06:29 Insulin Human Regular 5 unit ONCE ONCE IV Last administered on 05/08/24at 10:58; Start 05/08/24 at 10:30; Stop 05/08/24 at 10:31; Status DC Dextrose 25 ml ONCE ONCE IV Last administered on 05/08/24at 10:49; Start 05/08/24 at 10:30; Stop 05/08/24 at 10:31; Status DC Sodium Zirconium Cyclosilicate 10 gm ONCE ONCE PO Last administered on 05/08/24at 11:04; Start 05/08/24 at 10:30; Stop 05/08/24 at 10:31; Status DC Fentanyl Citrate 100 mcg STK-MED ONCE .ROUTE; Start 05/08/24 at 10:34; Stop 05/08/24 at 10:34; Status DC Fentanyl Citrate 100 ml @ As Directed STK-MED ONCE IV; Start 05/08/24 at 10:38; Stop 05/08/24 at 10:38; Status DC Midazolam HCl 50 ml @ 0 mls/hr PROTOCOL IV Last administered on 05/08/24at 19:59; Start 05/08/24 at 11:00; Stop 05/15/24 at 10:59 Fentanyl Citrate 100 ml @ 0 mls/hr PROTOCOL IV Last administered on 05/08/24at 10:56; Start 05/08/24 at 11:00; Stop 05/08/24 at 15:45; Status DC Fentanyl Citrate 100 mcg ONCE ONCE IVP Last administered on 05/08/24at 10:45; Start 05/08/24 at 11:00; Stop 05/08/24 at 11:01; Status DC Fentanyl Citrate 100 ml @ 2.5 mls/hr PROTOCOL IV; Start 05/08/24 at 11:00; Stop 05/08/24 at 10:56; Status DC Midazolam HCl 50 mg/Sodium Chloride 50 ml @ 0 mls/hr PROTOCOL IV; Start 05/08/24 at 11:00; Stop 05/08/24 at 10:57; Status DC Chlorhexidine Gluconate 15 ml Q8H MM Last administered on 05/12/24at 06:24; Start 05/08/24 at 11:00; Stop 05/22/24 at 10:59 Artificial Tears 1 DROP OR AD Q4H4 OU Last administered on 05/13/24at 21:06; Start 05/08/24 at 12:00; Stop 06/07/24 at 11:59 Doxycycline Hyclate 250 ml @ 125 mls/hr Q12H IV Last administered on 05/10/24at 01:00; Start 05/08/24 at 11:00; Stop 05/10/24 at 10:39; Status DC Rocuronium [place] 50 mg STK-MED ONCE IV; Start 05/07/24 at 13:32; Stop 05/08/24 at 13:32; Status DC Etomidate 20 mg STK-MED ONCE IVP; Start 05/07/24 at 13:32; Stop 05/08/24 at 13:32; Status DC Pantoprazole Sodium 40 mg DAILY IVP Last administered on 05/13/24at 08:25; Start 05/09/24 at 09:00; Stop 06/08/24 at 08:59 Methylprednisolone Sodium Succinate 40 mg BID IVP Last administered on 05/13/24at 21:06; Start 05/08/24 at 21:00; Stop 06/07/24 at 20:59 Polyethylene Glycol 17 gm DAILY PO Last administered on 05/11/24at 08:40; Start 05/09/24 at 09:00; Stop 06/08/24 at 08:59 Sodium Zirconium Cyclosilicate 10 gm TID PO Last administered on 05/09/24at 08:45; Start 05/08/24 at 21:00; Stop 05/09/24 at 20:59; Status DC Insulin Human Regular INSULIN SLIDING SCAL... Q6H6 SQ Last administered on 05/12/24at 06:30; Start 05/08/24 at 18:00; Stop 05/13/24 at 17:23; Status DC Insulin Glargine 15 units BID@0730,2100 SQ Last administered on 05/12/24at 06:40; Start 05/08/24 at 21:00; Stop 06/07/24 at 20:59 Fentanyl/Sodium Chloride 250 ml @ 0 mls/hr PROTOCOL IV Last administered on 05/08/24at 19:29; Start 05/08/24 at 16:00; Stop 05/12/24 at 10:46; Status DC Dopamine HCl/ Dextrose 250 ml @ 0 mls/hr PROTOCOL PRN IV; Start 05/09/24 at 09:30; Stop 05/12/24 at 10:46; Status DC Dopamine HCl/ Dextrose 250 ml @ As Directed STK-MED ONCE IV; Start 05/09/24 at 09:24; Stop 05/09/24 at 09:24; Status DC Furosemide 40 mg QODAY PO; Start 05/11/24 at 09:00; Stop 05/09/24 at 10:23; Status DC Nystatin 1 APPL TIDP PRN TP; Start 05/09/24 at 10:30; Stop 06/08/24 at 10:29 Timolol Maleate 1 GGT OD AD TOD AD OD; Start 05/09/24 at 10:30; Stop 05/12/24 at 07:11; Status DC Home Med DAILY PO; Start 05/10/24 at 09:00; Stop 06/09/24 at 08:59 Latanoprost DAILY OP; Start 05/10/24 at 09:00; Stop 05/10/24 at 08:17; Status DC Home Med Levocetirizine Dihydrochloride 2.5 MG HS PO Last administered on 05/10/24at 20:41; Start 05/09/24 at 21:00; Stop 06/08/24 at 20:59 Melatonin 5 mg HS PO Last administered on 05/13/24at 21:07; Start 05/09/24 at 21:00; Stop 06/08/24 at 20:59 Atorvastatin Calcium 5 mg HS PO Last administered on 05/13/24at 21:07; Start 05/09/24 at 21:00; Stop 06/08/24 at 20:59 Home Med LEVOTHYROXINE 37.5 MCG 1 CAP D PO; Start 05/09/24 at 11:30; Stop 06/08/24 at 11:29 Propofol 1,000 mg PROTOCOL PRN IV Last administered on 05/11/24at 06:41; Start 05/09/24 at 13:30; Stop 05/13/24 at 00:37; Status DC Latanoprost ONE GTT DAILY OP Last administered on 05/13/24at 08:30; Start 05/10/24 at 09:00; Stop 06/09/24 at 08:59 Cefepime HCl 1 gm Q24H IVPB Last administered on 05/13/24at 12:22; Start 05/10/24 at 11:00; Stop 05/20/24 at 10:59 Vancomycin HCl 1 each AD IV; Start 05/10/24 at 11:00; Stop 05/10/24 at 12:58; Status DC Metronidazole/ Sodium Chloride 100 ml @ 100 mls/hr Q8H6 IVPB Last administered on 05/13/24at 05:56; Start 05/10/24 at 14:00; Stop 05/20/24 at 13:59 Vancomycin HCl 250 ml @ 83.333 mls/ hr ONCE ONCE IV; Start 05/10/24 at 12:00; Stop 05/10/24 at 14:59; Status DC Doxycycline Hyclate 100 mg BID PO Last administered on 05/13/24at 21:06; Start 05/11/24 at 09:00; Stop 05/19/24 at 08:59 Dexmedetomidine/ Sodium Chloride 400 mcg STK-MED ONCE IV Last administered on 05/11/24at 19:16; Start 05/11/24 at 15:04; Stop 05/11/24 at 15:05; Status DC Dexmedetomidine/ Sodium Chloride 400 mcg PROTOCOL IV Last administered on 05/12/24at 06:41; Start 05/11/24 at 15:30; Stop 05/12/24 at 10:46; Status DC Dextrose 50 ml STK-MED ONCE IV; Start 05/12/24 at 19:55; Stop 05/12/24 at 19:55; Status DC Dextrose 50 ml PROTOCOL PRN IV Last administered on 05/12/24at 20:00; Start 05/12/24 at 20:00; Stop 06/11/24 at 19:59 Insulin Human Regular INSULIN SLIDING SCAL... 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, DUE TO LUNG DISEASE OBSTRUCTIVE SLEEP 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 ANXIETY D/O HH AND RENAL DIS /CKD 3 W SERRANO CHF SHE PRESENTED WITH ACUTE HYPERCAPNIC RESPIRATORY FAILURE REQUIRING MECHANICAL VENTILATION ACUTE RENAL FAILURE WITH HYPERKALEMIA ACUTE CHF THROMBOCYTOPENIA PNEUMONIA HYPOGLYCEMIA DYSPHAGIA PLAN: CONTINUES ON O2 PER NC DAYTIME AND BIPAP QHS CONTINUE WEANING O2 PER N ON CEFEPIME AND METRONIDAZOLE AND DOXYCYCLINE WEANING IV STEROIDS AND NEBS ADJUSTING BASAL INSULIN MONITORING AND SUPPLEMENTING ELECTROLYTES NEEDED SPEECH EVALUATION PENDING TO ADVANCE DIET COVER FOR HYPOGLYCEMIA DVT PROPHYLAXIS W TEDS AND SCD STRESS ULCER PROPHYLAXIS W PPI CODE STATUS ESTABLISHED A DNR UPDATED DAUGHTER AND PATIENT AT BEDSIDE LONG DISCUSSION REGARDING INABILITY TO GET HER BIPAP REISSUED W/O SLEEP STUDY WHICH SHE HAS NOT BEEN ABLE TO DO DUE TO IMMOBILITY DID CALL HER HOSPICE PROGRAM AND THEY HAVE THE ABILITY TO PROVIDE HER BIPAP AND THEY MAY BE ABLE TO COVER IT UNDER HER HOSPICE CARE HOWEVER THE PATIENT'S FAMILY WOULD HAVE TO REQUEST THIS WAS CONVEYED TO THEM CASE MANAGEMENT [facility] WORKING ON DISPOSITION ANSWERED ALL OF THE FAMILY MEMBERS QUESTIONS PRESENT TODAY IN THE ROOM AND BY PHONE PER POGustavo REQUEST SALLIE MOTA MD May 13, 2024 22:13
[2024-05-14] VITALS (17 sets, daily range): BP systolic 117–143; BP diastolic 52–87; PULSE 56–82; RESP 18–28; TEMP 97.9–98.8; O2SAT 97–98
--- NOTE | 2024-05-14 12:00 | NUR ---
Order noted and spoke to nurse, Lanette. Patient will be placed on hospice. DC from PT at this time.
--- NOTE | 2024-05-14 12:19 | NUR ---
CM NOTE: EMS ARRANGED CM ARRANGED AND FAXED EMS TO [facility] AT THIS TIME, PRIMARY NURSE TO CALL [facility] ONCE PT READY TO DC. PENDING [facility] TO CONFIRM PT OKAY TO DC HOME. PRIMARY NURSE GIORGI NICHOLAS. CM TO CONTINUE TO FOLLOW UP.
[2024-05-14] MEDS ORDERED: LEVO75CA5 PO (14:00)
[2024-05-14] MEDS ORDERED: PRED10TA3 PO (14:04)
[2024-05-14] MEDS ORDERED: IPRA3AMP24 NEB (14:06)
[2024-05-14] MEDS ORDERED: DOXY100C61 PO (14:08)
--- NOTE | 2024-05-14 14:32 | PN ---
SUBJECTIVE: An 88-year-old female initially presented to the hospital with respiratory distress. The patient did require short course of mechanical ventilation. She has been successfully extubated. She has had acute on chronic renal failure in the hospital. The patient also has been started on a diet and she is being seen for all of the above. She is a DNR per family request. REVIEW OF SYSTEMS: GENERAL: She is feeling improved. HEENT: No change in vision. No change in hearing. CARDIOVASCULAR: There is no current chest pain or palpitations. PULMONARY: She has chronic shortness of breath. GASTROINTESTINAL: She is tolerating a diet. MUSCULOSKELETAL: Complains of weakness. PHYSICAL EXAMINATION: VITAL SIGNS: Blood pressure 129/52, pulse in the 70s. GENERAL: She is a chronically ill, obese female, lying in bed on medical floor. HEENT: Head is atraumatic. Pupils equal, roving to light. Oropharynx is without exudate. Nares clear. NECK: There is no JVP. There is no thyromegaly, no mass. CARDIOVASCULAR: Regular. There is no S3, S4 gallop. LUNGS: Coarse with equal thoracic movement. ABDOMEN: Soft, nondistended, nontender. EXTREMITIES: No clubbing, no cyanosis. NEUROLOGIC: She is awake. She is at her baseline. She has a history of dementia. IMPRESSION: * Renal dysfunction. * Respiratory distress with a history of sleep apnea. * Diabetes mellitus. * Hypertension. PLAN: The patient is much improved from a general medical standpoint. The patient has been transferred out to medical floor. She remains on BiPAP in the evening. The patient is being seen by case management in regards to final disposition. We will continue to follow closely. Once she is discharged, she can follow up in the [facility]. TID: [id number] RECEIPT: [id number]
--- NOTE | 2024-05-14 16:37 | PN ---
INFECTIOUS DISEASE PROGRESS NOTE Date of Service: May 14, 2024 SUBJECTIVE: This is 88-year-old female patient with past medical history of asthma and COPD with home O2 who was admitted to the hospital with chief complaint of shortness of breaths, cough and altered mental status. Patient was found on acute hypoxic respiratory failure requiring intubation and hypotensive. Patient was seen and examined at bedside in room 426. Patient is awake, alert and answering basic questions. Patient had a modified barium swallow study yesterday and mechanical soft diet with thin liquids has been recommended. Patient is pending approval to home with hospice services. Daughter who is visiting at bedside reported that patient is also pending approval for a CPAP for home. Patient is currently on oxygen via nasal cannula at 2 liters/minute. Patient is afebrile, temperature is 98.1. Currently continues on cefepime IV, Flagyl IV and doxycycline p.o. We will continue to monitor patient's care. PHYSICAL EXAM EYES: Anicteric. Pupils equal and reactive. HENT: No oral thrush seen, moist Oral mucosa NECK: Supple, no JVD or thyromegaly. LUNGS: Good air entry. No rales, no rhonchi. Oxygen support via nasal cannu la. CARDIOVASCULAR: S1, S2 regular. No murmur heard. ABDOMEN: Soft, non tender, bowel sounds present, no organomegaly CENTRAL NERVOUS SYSTEM: Awake, alert, oriented x 2. SKIN: No rashes, no swelling. LYMPHATICS: No peripheral lymphadenopathy. MUSCULOSKELETAL: No joint swelling, erythema or tenderness. EXTREMITIES: No cyanosis or clubbing. BACK: No deformity, no pressure ulcer. GENITOURINARY: No dysuria or hematuria. Vital Sign (Last 12 Hours) 05/14/24 05/14/24 05/14/24 05/14/24 06:29 06:30 07:25 09:00 Temp 97.9 Pulse 74 74 74 Resp 21 21 18 B/P (MAP) 129/52 Pulse Ox 96 97 O2 Delivery Nasal Cannula Nasal Cannula* O2 Flow Rate 3.0 4 FiO2 40 28 36 05/14/24 05/14/24 05/14/24 05/14/24 10:23 10:25 11:25 13:49 Temp 98.1 Pulse 71 71 72 76 Resp 18 18 18 18 B/P (MAP) 132/52 Pulse Ox 96 O2 Delivery N/Cannula Low lpm Room Air O2 Flow Rate 2.0 FiO2 28 21 05/14/24 13:51 Pulse 76 Resp 18 O2 Delivery N/Cannula Low lpm O2 Flow Rate 2.0 FiO2 28 Intake & Output (last 24hrs) 05/13/24 05/13/24 05/14/24 15:00 23:00 07:00 Intake Total 100.0 ml Output Total 700 ml Balance -600.0 ml LABS: Laboratory: Test 05/14/24 11:29 05/13/24 03:36 Range/Units Whole Blood Glucose 122 H 70-110 MG/DL White Blood Count 7.4 4.8-10.8 K/uL Red Blood Count 4.34 4.00-5.50 MIL/uL Hemoglobin 11.9 L 12.0-16.0 g/dL Hematocrit 38.4 36-48 % Mean Corpuscular Volume 88.5 79-99 fL Mean Corpuscular Hemoglobin 27.4 27.0-33.0 pg Mean Corpuscular Hemoglobin Concent 31.0 L 32.0-36.0 g/dL Red Cell Distribution Width 16.2 H 11.0-15.5 % Platelet Count 73 L 130-400 K/uL Mean Platelet Volume 10.7 H 7.5-10.5 fL Immature Granulocyte % (Auto) 9.2 H 0-1 % Neutrophils (%) (Auto) 78.9 H 40.0-77.0 % Lymphocytes (%) (Auto) 7.5 L 21.0-51.0 % Monocytes (%) (Auto) 4.1 3.0-13.0 % Eosinophils (%) (Auto) 0.0 0.0-8.0 % Basophils (%) (Auto) 0.3 0.0-5.0 % Neutrophils # (Auto) 5.8 1.8-7.7 K/uL Lymphocytes # (Auto) 0.6 L 1.0-4.8 K/uL Monocytes # (Auto) 0.3 0.1-1.0 K/uL Eosinophils # (Auto) 0.00 0.00-0.70 K/uL Basophils # (Auto) 0.02 0.00-0.20 K/uL Absolute Immature Granulocyte (auto 0.68 0-1 K/uL Segmented Neutrophils % 88 H 40-70 % Lymphocytes % (Manual) 6 L 22-44 % Monocytes % (Manual) 3 2-9 % Nucleated Red Blood Cells 0.0 0.0-0.19 % Differential Comment MANUAL DIFFERENTIAL Reactive Lymphocytes 3 H 0-0 % White Cell Morphology Comment REACTIVE LYMPHS 1+ Platelet Morphology Comment DECREASED Red Blood Cell Morphology See comments Sodium Level 147 H 136-145 mmol/L Potassium Level 3.7 3.5-5.1 mmol/L Chloride Level 107 101-111 mmol/L Carbon Dioxide Level 34 H 21-32 mmol/L Blood Urea Nitrogen 42 H 7-18 mg/dL Creatinine 1.4 H 0.5-1.0 mg/dL Glomerular Filtration Rate Calc 36 >90 mL/min Random Glucose 113 H 70-105 mg/dL Total Calcium 8.4 L 8.5-10.1 mg/dL Total Bilirubin 0.7 0.2-1.0 mg/dL Aspartate Amino Transf (AST/SGOT) 25 10-37 U/L Alanine Aminotransferase (ALT/SGPT) 30 12-78 U/L Alkaline Phosphatase 68 50-136 U/L Total Protein 6.0 6.0-8.3 g/dL Albumin 2.7 L 3.5-5.0 g/dL ASSESSMENT: Hypoxic respiratory failure, requiring intubation, status post extubation. Pneumonia with Kay albicans. Acute on chronic renal failure. 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 Acute renal failure. Thrombocytopenia. Diabetes mellitus. PLAN: Continue on cefepime IV Continue doxycycline p.o. Continue metronidazole IV. Continue GI prophylaxis. Continue oxygen support. Continue monitoring glucose levels. Case management working on setting up home with hospice services. This case was reviewed and discussed with my supervising physician and the above assessment and plan was formulated and agreed upon. ATTESTATION BY PHYSICIAN I have seen and examined the patient. I reviewed the documentation, medical decision making, and treatment plan as noted by the mid-level provider above. I agree with the findings and plan of care. SADIE CAO MD, MIRTA L [facility] May 14, 2024 16:37
--- NOTE | 2024-05-14 16:46 | DS ---
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 Mild bilateral pulmonary infiltrates are seen may be related to mild pulmonary vascular congestion with possible superimposed pneumonitis. The heart is borderline enlarged. Poor inspiratory effort is seen. No evidence of aortic calcification is seen. IMPRESSION: Mild bilateral pulmonary infiltrates are seen may be related to mild pulmonary vascular congestion with possible superimposed pneumonitis. US RENAL SONOGRAM FINDINGS: Both kidneys are not seen limiting evaluation. Bladder is poorly distended with Marley catheter. The study is limited due to patient's body habitus. IMPRESSION: Both kidneys are not seen. CT HEAD/BRAIN W/O CONTRAST FINDINGS: The ventricles and extraventricular CSF spaces are dilated consistent with cerebral atrophy. Nonspecific white matter changes seen. There is no midline shift, mass effect or herniation. No acute intracranial bleed is seen. Visualized portion of the paranasal sinuses are grossly within normal limits. IMPRESSION: No acute intracranial bleed is seen. Atrophy with white matter changes. 2D ECHO Left Ventricle is normal size. No regional wall motion abnormalities noted. Mild concentric left ventricular hypertrophy. Left ventricle systolic function is low-normal, estimated LVEF is 50-55%. Indeterminate diastolic function. Right Ventricle is normal size. The right ventricular systolic function is normal. Atria, left size is normal. The right atrium size is normal. Aortic Valve is probably trileaflet. The leaflets are mildly thickened and calcified. No aortic regurgitation is present. There is no aortic valvular stenosis Mitral Valve annular calcification is noted. The leaflets are mildly thickened and calcified. Trace mitral regurgitation. There is no mitral valve stenosis. Tricuspid Valve is normal in structure. Trace tricuspid regurgitation. RVSP is normal. Pulmonic valve is not well visualized. Great Vessels is normal in size. The IVC is normal in size and collapses >50% with inspiration. Pericardium is no pericardial effusion. Conclusion The cardiac chambers are normal in size. Mild concentric left ventricular hypertrophy. No regional wall motion abnormalities noted. Left ventricle systolic function is low-normal, estimated LVEF is 50-55%. Indeterminate diastolic function. Trace mitral regurgitation. Trace tricuspid regurgitation. PASP is normal. There is no pericardial effusion. CHEST 1VW FINDINGS: Heart size is stable. There is no pulmonary vascular congestion. Right hemidiaphragm is elevated, unchanged. ET tube is in good position 3.8 cm above the taty. NG and PICC line remain in place as well. IMPRESSION: Tubes and lines in good position, no interval change. HOSPITAL COURSE: THIS IS A 88 YR OLD WOMAN WITH THE EXTENSIVE PMH WHO REVOKED HOSPICE AND PRESENTED WITH ACUTE HYPERCAPNIC RESPIRATORY FAILURE REQUIRING MECHANICAL VENTILATION, ACUTE RENAL FAILURE WITH HYPERKALEMIA, ACUTE ON CHRONIC DIASTOLIC CHF, THROMBOCYTOPENIA, AND BILATERAL PNEUMONIA. SHE WAS MANAGED IN THE ICU WITH STRESS DOSE STEROIDS, IV ANTIBIOTICS, FREQUENT NEBS, DIURETICS, AND INTERMITTENT PRESSORS. SHE GRADUALLY IMPROVE WITH TREATMENT. THE FAMILY DECIDED TO CONTINUE DNR/DNI CODE STATUS. ONCE SHE WAS ABLE TO BE EXTUBATED SHE WAS TRANSFERRED TO THE MEDICAL FLOOR AND HER DIET WAS ADVANCED AFTER A SPEECH EVALUATION. SHE CONTINUED TO NEED BIPAP Q HS AND HAD BEEN NONCOMPLIANT WITH TREATMENT DUE TO THE INABILITY TO DO AN OUTPATIENT SLEEP STUDY. HOSPICE WAS CONSULTED AND THEY WERE ABLE TO PROVIDE HELP WITH A BIPAP MACHINE FOR HOME USE. ONCE ARRANGEMENTS SHE WAS DISCHARGED HOME ONCE AGAIN WITH [facility]. DIET: HEART HEALTHY ACTIVITY: PROGRESSIVE AMBULATION CONDITION: STABLE EQUIPMENT: NONE FOLLOW UP APPOINTMENT(S): DR SILVEIRA 2-5 YRS DISPOSITION: HOME WITH [facility] CODE STATUS: DNR/ DNI MEDICATION RECONCILIATION : RESUME PREVIOUS HOME MEDS ADDED COMFORT MEDS PER HOSPICE ADDED DOXYCYCLINE 100 MG PO BID X 1 WK ADDED DUONEBS TID AND PRN ADDED PREDNISONE TAPER ^ Home Meds Active Scripts Doxycycline Monohydrate (Doxycycline Monohydrate) 100 Mg Capsule, 1 CAP PO BID for 7 Days, #14 CAP 0 Refills Prov:SALLIE SILVEIRA MD 05/14/24 Ipratropium/Albuterol Sulfate (Iprat-Albut 0.5-3(2.5) mg/3 ml) 0.5 Mg-3 Mg (2.5 Mg Base)/3 Ml Ampul.neb, 1 VIAL NEB TID for 30 Days, #90 ML 0 Refills Prov:SALLIE SILVEIRA MD 05/14/24 Prednisone (Prednisone) 10 Mg Tablet, 4 TAB PO AD for 9 Days, #21 TAB 0 Refills 4 PO DALIY X 3 DAYS 2 PO DAILYX 3 DAYS 1 PO DAILY X 3 DAYS THEN STOP Prov:SALLIE SILVEIRA MD 05/14/24 Levothyroxine Sodium (Levothyroxine) 75 Mcg Capsule, 1 TAB PO DAILY for 30 Days, #30 CAP 0 Refills Prov:SALLIE SILVEIRA MD 05/14/24 Levocetirizine Dihydrochloride (Levocetirizine Dihydrochloride) 5 Mg Tablet, 2.5 MG PO HS for 90 Days, #90 TAB Prov:SALLIE SILVEIRA MD 06/05/19 Timolol Maleate (Timoptic 0.25% Ophth Soln) 20 Drop/Ml Opsol, 1 DROP OD DAILY for 90 Days, #90 DROP Prov:SALLIE SILVEIRA MD 06/05/19 [O2] No Conflict Check, 2.5 L NASAL, #90 0 Refills Prov:SALLIE SILVEIRA MD 06/05/19 [Bipap] 16,/12 No Conflict Check, 16 CM NASAL HS, #1 0 Refills Prov:SALLIE SILVEIRA MD 06/05/19 Latanoprost/Pf (Latanoprost 0.005% Eye Drop) 7.5 Ml Drops, 1 DROP OP DAILY for 90 Days, #90 DROP Prov:SALLIE SILVEIRA MD 06/05/19 Albuterol Sulfate (Albuterol Sulfate) 2.5 Mg/3 Ml Vial.neb, 2.5 MG IH Q6HPRN PRN for SHORTNESS OF BREATH/WHEEZING for 90 Days, #360 INH Prov:SALLIE SILVEIRA MD 06/05/19 Potassium Chloride (Klor-Con M20) 20 Meq Tab.er.prt, 20 MEQ PO AM for 90 Days, #90 TAB Prov:SALLIE SILVEIRA MD 06/05/19 Reported Medications Cholecalciferol (Vitamin D3) (Vitamin D3) 125 Mcg (5000 Unit) Tab.rapdis, 1 TAB PO DAILY for 30 Days, #30 TAB 0 Refills 05/08/24 Melatonin (Melatonin) 10 Mg Tablet, 1 TAB PO HS for sleep for 30 Days, #30 TAB 0 Refills 24 Furosemide (Furosemide) 40 Mg Tablet, 1 TAB PO QODAY for 30 Days, #30 TAB 0 Refills 05/08/24 Gabapentin (Gabapentin) 100 Mg Capsule, 1 CAP PO TID PRN for OTHER [SEE ORDER COMMENTS] for 30 Days, #90 CAP 0 Refills 05/08/24 Pravastatin Sodium (Pravachol) 20 Mg Tablet, 20 MG PO HS, TAB 05/29/14 Discontinued Reported Medications [Levothyroxine 37.5] No Conflict Check, 37.5 MCG PO D 05/08/24 Lorazepam (Ativan) 0.5 Mg Tablet, 1 TAB PO Q4HPRN PRN for anxiety for 30 Days, #60 TAB 0 Refills 05/08/24 Levothyroxine Sodium (Levothyroxine) 75 Mcg Capsule, 1 TAB PO DAILY for 30 Days, #30 CAP 0 Refills 05/08/24 Baclofen (Baclofen) 10 Mg Tablet, 5 MG PO BID, TAB 05/08/24 Aspirin (ASPIRIN 81 MG ECTAB) 81 Mg Ectab, 81 MG PO DAILY, TAB.EC 05/29/14 Levothyroxine Sodium (Levothroid/Synthroid) 75 Mcg Tab, 75 MCG GT ACBKFST, TAB 05/29/14 Discontinued Scripts Clotrimazole/Betamethasone Dip (Lotrisone Cream) 15 Gm Cream..g., 1 APPL TP BID PRN for RASH for 90 Days, #90 GM Prov:SALLIE SILVEIRA MD 06/05/19 Nystatin (Nystatin) 15 Gm Cream.gm., 1 APPL TP TIDP PRN for RASH for 90 Days, #90 APPL Prov:SALLIE SILVEIRA MD 06/05/19 Albuterol Sulfate (Ventolin Hfa) 18 Gm Hfa.aer.ad, 2 PUFF IH QIDP PRN for SHORTNESS OF BREATH for 90 Days, #90 INHALER Prov:SALLIE SILVEIRA MD 06/05/19 Prednisone (Prednisone) 10 Mg Tablet, 10 MG PO AD, #21 TAB 0 Refills 4 tabs daily x 3 days 2 tabs daiy x 3 days 1 tab daily x 3 days then stop Prov:SALLIE SILVEIRA MD 06/06/19 Azithromycin (Zithromax) 250 Mg Tablet, 500 MG PO Q24H for 5 Days, #5 TAB 0 Refills Prov:SALLIE SILVEIRA MD 06/06/19 Silver Sulfadiazine (Silver Sulfadiazine) 50 Gm Cream..g., 1 APPL TP QIDP PRN for SKIN BREAKDOWN for 90 Days, #60 GM Prov:SALLIE SILVEIRA MD 06/05/19 Cholecalciferol (Vitamin D3) (Vitamin D3) 2,000 Unit Tablet, 2000 UNIT PO DAILY for 90 Days, #90 TAB Prov:SALLIE SILVEIRA MD 06/05/19 Fluticasone/Salmeterol (Advair 250-50 Diskus) 1 Each Blst.w.dev, 1 EACH IH BID for 90 Days, #9 DISK Prov:SALLIE SILVEIRA MD 06/05/19 Gabapentin (Gabapentin) 100 Mg Capsule, 200 MG PO HS for 90 Days, #180 CAP Prov:SALLIE SILVEIRA MD 06/05/19 Linaclotide (Linzess) 145 Mcg Capsule, 145 MCG PO DAILYLUNCH PRN for CONSTIPATION for 90 Days, #90 CAP Prov:SALLIE SILVEIRA MD 06/05/19 SALLIE SILVEIRA MD May 14, 2024 16:46
--- NOTE | 2024-05-14 17:10 | PN ---
[facility] PROGRESS NOTE Date Patient Seen: May 14, 2024 Time of Visit: 17:08 Supervising Physician: REYNALDO CURRY Primary Care Physician: Attending team: [facility] hospitalist team. Outpatient Specialists: Inpatient Consults: [facility], critical Care team Nephrology PROBLEM LIST: Acute hypercarbic respiratory failure with hypoventilation syndrome POA requiring intubation in 05/08/24, extubated 1210/ Acute kidney injury on admission on top of CKD Acute systolic heart failure on admission Myelodysplastic syndrome Pre- Diabetes Hypothyroidism Hyperlipidemia Major depression disorder Generalized anxiety disorder Guillain Henrietta syndrome with paraplegia Dementia Morbidly obese class III, BMI 43.2 INTERVAL HISTORY: Seen and examined w daughter at bedside . Successfully extubated 48 hours ago She is onon 4 liters O2 via nasal canula, She is very weak, afebrile, with fatigue Unable to complete a sentence, confused, poor appetite Family decided on hospice care, pending BIPAP to bee arranged and delivered. REVIEW OF SYSTEMS: Confused, PHYSICAL EXAM: GENERAL: Pt awake ,tracking and follows very simple commands HEENT: Sclera non icteric, moist mucosa NECK: Supple, no JVD, trachea midline LUNGS: Decreased breath sounds bilaterally, no wheezing HEART: Regular rate and rhythm. Normal S1 and S2, without murmurs ABD: Abdomen soft, obese, nontender. 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 NEURO: awake , alert, LE weakness give nhx of GB Vital Signs (last 8hr) Date Time Temp Pulse Resp B/P (MAP) Pulse Ox O2 Delivery O2 Flow Rate FiO2 05/14/24 13:51 76 18 N/Cannula Low lpm 2.0 28 05/14/24 13:49 76 18 05/14/24 11:25 98.1 72 18 132/52 96 Room Air 21 05/14/24 10:25 71 18 N/Cannula Low lpm 2.0 28 05/14/24 10:23 71 18 LABS: Hematology Labs: Test 05/13/24 03:36 Range/Units White Blood Count 7.4 4.8-10.8 K/uL Red Blood Count 4.34 4.00-5.50 MIL/uL Hemoglobin 11.9 L 12.0-16.0 g/dL Hematocrit 38.4 36-48 % Mean Corpuscular Volume 88.5 79-99 fL Mean Corpuscular Hemoglobin 27.4 27.0-33.0 pg Mean Corpuscular Hemoglobin Concent 31.0 L 32.0-36.0 g/dL Red Cell Distribution Width 16.2 H 11.0-15.5 % Platelet Count 73 L 130-400 K/uL Mean Platelet Volume 10.7 H 7.5-10.5 fL Immature Granulocyte % (Auto) 9.2 H 0-1 % Neutrophils (%) (Auto) 78.9 H 40.0-77.0 % Lymphocytes (%) (Auto) 7.5 L 21.0-51.0 % Monocytes (%) (Auto) 4.1 3.0-13.0 % Eosinophils (%) (Auto) 0.0 0.0-8.0 % Basophils (%) (Auto) 0.3 0.0-5.0 % Neutrophils # (Auto) 5.8 1.8-7.7 K/uL Lymphocytes # (Auto) 0.6 L 1.0-4.8 K/uL Monocytes # (Auto) 0.3 0.1-1.0 K/uL Eosinophils # (Auto) 0.00 0.00-0.70 K/uL Basophils # (Auto) 0.02 0.00-0.20 K/uL Absolute Immature Granulocyte (auto 0.68 0-1 K/uL Segmented Neutrophils % 88 H 40-70 % Lymphocytes % (Manual) 6 L 22-44 % Monocytes % (Manual) 3 2-9 % Nucleated Red Blood Cells 0.0 0.0-0.19 % Differential Comment MANUAL DIFFERENTIAL Reactive Lymphocytes 3 H 0-0 % White Cell Morphology Comment REACTIVE LYMPHS 1+ Platelet Morphology Comment DECREASED Red Blood Cell Morphology See comments Chemistry Labs: Test 05/14/24 11:29 05/13/24 03:36 Range/Units Whole Blood Glucose 122 H 70-110 MG/DL Sodium Level 147 H 136-145 mmol/L Potassium Level 3.7 3.5-5.1 mmol/L Chloride Level 107 101-111 mmol/L Carbon Dioxide Level 34 H 21-32 mmol/L Blood Urea Nitrogen 42 H 7-18 mg/dL Creatinine 1.4 H 0.5-1.0 mg/dL Glomerular Filtration Rate Calc 36 >90 mL/min Random Glucose 113 H 70-105 mg/dL Total Calcium 8.4 L 8.5-10.1 mg/dL Total Bilirubin 0.7 0.2-1.0 mg/dL Aspartate Amino Transf (AST/SGOT) 25 10-37 U/L Alanine Aminotransferase (ALT/SGPT) 30 12-78 U/L Alkaline Phosphatase 68 50-136 U/L Total Protein 6.0 6.0-8.3 g/dL Albumin 2.7 L 3.5-5.0 g/dL DIAGNOSTICS / RADIOLOGY RESULTS: [ ] PLAN As per discussion with nurse and case management, family requesting to place patient on BiPAP Will continue with inpatient medical management for now until hospice arranged monitor renal clearance avoid use of nephrotoxic medications avoid use of central acting medications continue supplemental oxygen CPAP as indicated keep patient comfortable NEURO: Minimize central acting medications as possible. Maintain fall precautions, adequate lighting during the day PULMONARY: Supplemental 02 as needed. Maintain aspiration precautions at all times CARDIOVASCULAR: Follow hemodynamics. Vital signs per facility protocol GI & NUTRITION: Continue with nutritional support. Continue stool softeners and laxatives as needed. KIDNEYS & ELECTROLYTES: Strict monitoring of intake, output and overall fluid balance. Avoid nephrotoxic medications to the extent possible. Medications to be dosed according to renal function. Monitor electrolytes and replace as needed ENDOCRINE: Maintain blood glucose between 100-180 at all times. Hypoglycemia protocol in place INFECTIOUS DISEASE: Trend temperature, WBC and procalcitonin level Follow cultures, deescalate antibiotics as soon as possible. Panculture if new onset fever ONCOLOGY/HEMATOLOGY/COAGULATION: Monitor for s/s of bleeding Monitor hemoglobin, coagulation studies as needed SKIN: Pressure ulcer prevention per facility protocol Specialty mattress ORTHO/REHAB: Continue PT/OT Prophylaxis: Continue GI and DVT prophylaxis Code Status: Full Resuscitation Disposition: Home with hospice Other: Total patient care time exceeds 35 minutes CAROLINA NGUYỄN May 14, 2024 17:10
--- NOTE | 2024-05-14 17:50 | NUR ---
REPORT called to [facility] will meet pt at her home on discharge
--- NOTE | 2024-05-14 18:20 | NUR ---
EMS called for transport from room 426 to pts residence picc line removed right upper arm cath tip intact dressing applied
[2024-05-14] MEDS: acetaMINOPHEN WITH coDEINE 1 TAB TAB PO ONE (19:28)
--- NOTE | 2024-05-14 21:37 | NUR ---
EMS PT PICKED UP BY EMS AT 2130. PATIENT IN NO APPARENT DISTRESS, COMFORTABLE, NO COMPLAINTS OR SIGNS OF PAIN.
[2024-05-15] MEDS ORDERED: levoTHYROxine 75 MCG TABLET PO SCH (06:30)
[2024-05-15] MEDS ORDERED: levoTHYROxine 50 MCG TABLET PO SCH (06:30)
[2024-05-15] MEDS ORDERED: PANTOPrazole 40 MG TAB DR PO SCH (09:00)
[2024-05-15] MEDS ORDERED: predniSONE 20 MG TABLET PO SCH (09:00)
== END 2024-05-14 21:30 | disposition home or self-care (01) | DRG 208 ==
LOC: EDH 17:59 → EDHIP 22:36 → 2CH 05-08 13:25 → 2AH 05-12 12:50 → 4DH 05-13 17:50
PROVIDERS: ADMIT Internal Medicine; ATTEND Internal Medicine
PROC: 5A09357 Assistance with Respiratory Ventilation, Less than 24 Consecutive Hours, Continuous Positive Airway Pressure (ICD-10-PCS; 2024-05-07)
PROC: 0BH17EZ Insertion of Endotracheal Airway into Trachea, Via Natural or Artificial Opening (ICD-10-PCS; principal; 2024-05-08)
PROC: 5A1945Z Respiratory Ventilation, 24-96 Consecutive Hours (ICD-10-PCS; 2024-05-08)
PROC: 5A09357 Assistance with Respiratory Ventilation, Less than 24 Consecutive Hours, Continuous Positive Airway Pressure (ICD-10-PCS; 2024-05-08)
PROC: 5A09357 Assistance with Respiratory Ventilation, Less than 24 Consecutive Hours, Continuous Positive Airway Pressure (ICD-10-PCS; 2024-05-13)
PROC: 5A09357 Assistance with Respiratory Ventilation, Less than 24 Consecutive Hours, Continuous Positive Airway Pressure (ICD-10-PCS; 2024-05-14)
PROC: 02HV33Z Insertion of Infusion Device into Superior Vena Cava, Percutaneous Approach (ICD-10-PCS; 2024-05-14)
DX: J96.02 Acute respiratory failure with hypercapnia (principal); J18.9 Pneumonia, unspecified organism; I50.43 Acute on chronic combined systolic (congestive) and diastolic (congestive) heart failure; I13.0 Hypertensive heart and chronic kidney disease with heart failure and stage 1 through stage 4 chronic kidney disease, or unspecified chronic kidney disease; J44.1 Chronic obstructive pulmonary disease with (acute) exacerbation; F03.94 Unspecified dementia, unspecified severity, with anxiety; F03.918 Unspecified dementia, unspecified severity, with other behavioral disturbance; J44.0 Chronic obstructive pulmonary disease with (acute) lower respiratory infection; G61.0 Guillain-Barre syndrome; N17.9 Acute kidney failure, unspecified; F32.1 Major depressive disorder, single episode, moderate; J98.11 Atelectasis; E87.3 Alkalosis; G82.20 Paraplegia, unspecified; Z68.42 Body mass index [BMI] 45.0-49.9, adult; J96.21 Acute and chronic respiratory failure with hypoxia; E11.22 Type 2 diabetes mellitus with diabetic chronic kidney disease; E78.2 Mixed hyperlipidemia; G47.33 Obstructive sleep apnea (adult) (pediatric); E11.65 Type 2 diabetes mellitus with hyperglycemia; E11.649 Type 2 diabetes mellitus with hypoglycemia without coma; E11.42 Type 2 diabetes mellitus with diabetic polyneuropathy; N18.30 Chronic kidney disease, stage 3 unspecified; Z66 Do not resuscitate; R32 Unspecified urinary incontinence; D46.9 Myelodysplastic syndrome, unspecified; G47.36 Sleep related hypoventilation in conditions classified elsewhere; E66.01 Morbid (severe) obesity due to excess calories; E87.5 Hyperkalemia; D69.6 Thrombocytopenia, unspecified; E07.9 Disorder of thyroid, unspecified; E03.9 Hypothyroidism, unspecified; F41.1 Generalized anxiety disorder; Z99.81 Dependence on supplemental oxygen; Z91.199 Patient's noncompliance with other medical treatment and regimen due to unspecified reason; Z82.5 Family history of asthma and other chronic lower respiratory diseases; Z82.49 Family history of ischemic heart disease and other diseases of the circulatory system; Z82.3 Family history of stroke; Z82.0 Family history of epilepsy and other diseases of the nervous system; Z79.82 Long term (current) use of aspirin; Z79.4 Long term (current) use of insulin; Z51.5 Encounter for palliative care; Z79.899 Other long term (current) drug therapy
CPT/HCPCS: 31500; 36415; 36569; 36600; 70450; 71045; 76770; 80048; 80053; 80074; 81001; 82435; 82728; 82803; 82947; 82948; 83036; 83605; 83735; 83880; 84132; 84145; 84295; 84443; 84484; 85018; 85025; 85027; 85610; 85651; 85730; 86038; 86140; 86215; 86235; 86701; 87040; 87071; 87205; 87390; 87635; 87804; 87902; 92610; 93005; 93306; 94002; 94003; 94640; 94660; 94664; C1751; C1894; G0378; J0612; J0692; J1265; J1815; J1940; J2060; J2470; J2543; J2704; J2919; J3010; J3490; J7070; A4600; A9900; J3370